=== PATIENT | female | born 1970 | race Caucasian/White ===

== ENCOUNTER → 2017-10-30 09:23 | Outpatient (CLI) | payer OTHER, SELFPAY ==
[2017-10-30 14:23] LABS: Free T3 2.5 pg/mL (2.18-3.98); T4 Free Direct 0.83 ng/dL (0.76-1.46)
[2017-11-01 15:58] LABS: HPV Reflexed? NOT INDICATED
== END ==
PROVIDERS: Visit Provider Obstetrics & Gynecology
DX: R63.5 Abnormal weight gain (principal); Z12.4 Encounter for screening for malignant neoplasm of cervix
CPT/HCPCS: 36415; 84439; 84443; 84481; 88175; G0145

== ENCOUNTER → 2017-11-10 08:52 | Outpatient (CLI) | payer OTHER, SELFPAY ==
--- NOTE | 2017-11-10 08:53 | BI_ITS ---
MAMMOGRAPHY - BILATERAL SCREENING REASON FOR EXAM: Female, 47 years old. Routine annual screening examination. PERTINENT HISTORY: Grandmother with breast cancer. TECHNIQUE: Digital bilateral breast ina (3D mammographic acquisition) in the CC and MLO projections. 2-D mediolateral oblique (MLO) and craniocaudad (CC) views of both breasts were obtained. CAD: Full Field Digital Mammography with Computer Added Detection was performed. COMPARISON: Comparison is made with prior study dated October 24, 2016 and October 19, 2015. FINDINGS: Breast Composition: The breasts are heterogeneously dense, which may obscure small masses. There are no dominant masses or suspicious calcifications. No other significant abnormalities are identified. There has been no significant change since the prior study. BI/SCREENING MAMM (CAD), BILAT IMPRESSION: Stable bilateral screening mammogram. Yearly follow-up mammogram recommended. (A) ASSESSMENT CATEGORY: BIRADS Category 1: Negative. A letter regarding these results will be sent to the patient by the facility within 30 days. Approximately 10% of breast cancers are not detected by mammography. A normal mammogram should not delay biopsy of a clinically suspicious abnormality. [id number] Electronically Signed: You Adkins MD at 13:21 EDT Tel [phone], Service support ,
== END ==
PROVIDERS: Family Provider Family Medicine; PCP Family Medicine; Visit Provider Obstetrics & Gynecology
DX: Z12.31 Encounter for screening mammogram for malignant neoplasm of breast (principal)
CPT/HCPCS: 77063; 77067

== ENCOUNTER → 2018-02-26 12:04 | Outpatient (CLI) | payer OTHER, SELFPAY | PROVIDERS: Family Provider Family Medicine; PCP Family Medicine; Visit Provider Family Medicine | DX: M72.2 Plantar fascial fibromatosis (principal) | CPT/HCPCS: 73650 ==

== ENCOUNTER → 2018-03-19 10:36 | Outpatient (CLI) | payer OTHER, SELFPAY ==
[2018-03-19 11:37] LABS: T4 Free Direct 0.87 ng/dL (0.76-1.46); Thyroid Stim Hormone (TSH) 2.86 uIU/mL (0.358-3.74)
== END ==
PROVIDERS: Family Provider Family Medicine; PCP Family Medicine; Visit Provider Family Medicine
DX: R79.89 Other specified abnormal findings of blood chemistry (principal)
CPT/HCPCS: 36415; 84439; 84443

== ENCOUNTER → 2018-03-22 17:30 | Outpatient (CLI) | payer OTHER, SELFPAY ==
--- NOTE | 2018-03-22 18:00 | MRI_ITS ---
STUDY: MRI RIGHT REARFOOT WITHOUT CONTRAST REASON FOR EXAM: Female, 47 years old. Heel pain. History of spur TECHNIQUE: Standardized fat and water weighted pulse sequences were obtained in all 3 orthogonal planes. COMPARISON: X-ray February 26, 2018 FINDINGS: Normal subcutis adipose space. There is thickening of the distal posterior tibialis tendon consistent with a tendinosis, but without a tendon tear. Normal flexor digitorum longus tendon. Normal flexor hallucis longus tendon. Normal peroneus longus and brevis tendons. Normal tibialis anterior tendon. Normal extensor hallucis longus tendon. Normal extensor digitorum longus tendons. Normal Achilles tendon and teno-osseous insertion. There is a plantar fasciitis with plantar fascial thickening, fascial edema, and partial tearing, series 3 image 06/03 through . There is a plantar calcaneal spur with cancellous marrow edema consistent with a marrow stress phenomena. There is marrow edema of the inferior calcaneus. Normal intrinsic muscles of the rearfoot. Normal distal tibiofibular syndesmotic ligamentous complex. Normal lateral ligamentous complex. Normal subtalar ligaments and sinus tarsi. Normal deltoid ligamentous complexes. Normal plantar calcaneonavicular (spring) ligament. Normal tibiotalar articulation. Normal talar dome. Normal subtalar articulations. Normal talonavicular articulation. Normal calcaneocuboid articulation. Normal navicular-cuneiform articulations. MRI/Lower Ext/No Jt/w/o IMPRESSION: Plantar fasciitis and partial tearing. Heel spur with edema and stress injury of the calcaneus. Electronically Signed: Ashish Morales MD at 10:42 EDT , Service support ,
== END ==
PROVIDERS: Family Provider Family Medicine; PCP Family Medicine; Visit Provider Family Medicine
DX: M79.671 Pain in right foot (principal)
CPT/HCPCS: 73718

== ENCOUNTER 2018-07-07 16:28 | Emergency (ER) | payer OTHER, SELFPAY ==
[2018-07-07 16:29] VITALS: BP 128/87; PULSE 73; RESP 16; TEMP 37.5; O2SAT 98; BMI 37.2
--- NOTE | 2018-07-07 16:56 | EKG12_ITS ---
Test Reason : CHEST PAIN Blood Pressure : / mmHG Vent. Rate : 076 BPM Atrial Rate : 076 BPM P-R Int : 140 ms QRS Dur : 084 ms QT Int : 388 ms P-R-T Axes : 041 059 035 degrees QTc Int : 436 ms Normal sinus rhythm Nonspecific ST abnormality Abnormal ECG Confirmed by ELIESER ROGERS, YAHAIRA ([id number]), editor department PADMA KAY ([id number]) on 07/10/2018 2:35:34 PM Referred By: SHRUTHI Confirmed By:YAHAIRA MON MD
[2018-07-07 16:59] VITALS: BP 147/80; PULSE 70; RESP 16; O2SAT 95
[2018-07-07 17:38] VITALS: BP 143/94; PULSE 64; RESP 18; O2SAT 96
--- NOTE | 2018-07-07 17:41 | ED.VISSUMM ---
- ER Visit Summary Date of Service: 07/07/18 Chief Complaint: Transient left-sided chest pain History of Present Illness: The patient is a 47 F with history of syncope with positive table tilt test who presents with left-sided chest discomfort described as sharp that lasted minutes. First episode Sunday. She had 3 or 4 episodes. There is no associated symptoms. She also reported bilateral elbow numbness there was not associated with the chest discomfort. She did not have any episodes on or Sunday. She had 3 episodes yesterday and several episodes today. No episode lasted more than a couple of minutes. All of the episodes occurred at rest. On Sunday she reported belching the belching resolved after she took [id number] Pepcid. She had belching today did that not resolve with the Pepcid. Patient is a non-smoker. She has no cardiac risk factors. She is in a walking boot. She has been in a walking shoe that she intermittently wears over the last 3 months. Denies leg pain, swelling discoloration. She denies pleuritic pain, shortness of breath dyspnea on exertion. Please read written note for complete detail Physical Examination: Vital signs noted and remarkable for blood pressure 143/94. Patient does appear anxious and admits she is anxious. HEENT exam unremarkable there is reproducible chest pain over the third fourth intercostal space on the left side. Heart is regular without murmur, gallop or rub. Lungs are clear to auscultation. There is good move air bilaterally. Abdomen soft nontender. There is no asymmetry, swelling, discoloration, leg vein distention, palpable cords or tenderness along the distribution of the deep venous system. Test Results: EKG normal sinus rhythm with a rate of 76 and is normal. There is artifact noted in first beat and V5 and 6 that I presume the computer is reading as nonspecific changes. Troponin is less than 0.015. Patient is PERC negative and reason d-dimer was not obtained Emergency Department Course and Treatment: EKG was obtained and troponin. Patient has a very atypical presentation. This probably represents GI etiology is associated with burping and initially resolved with Pepcid. Treatment Plan: Follow-up with PCP as needed Disposition: Discharged home Impression: 1. Atypical chest pain unknown cause 2. Reproducible chest wall pain left side This note was generated with [employer] software. It may contain incorrect words, spelling, and punctuation that were not noted in review of the chart prior to signing ED Disposition - Plan for ED Patient: Disposition: Home or Assisted Living Chief Complaint: Chest Pain Instructions: ED Chest Pain NonCardiac Referrals: Marcus Bolden MD [Primary Care Provider] - As Needed
[2018-07-07 17:55] VITALS: BP 142/91; PULSE 68; RESP 18; TEMP -8.3; TEMP 17; O2SAT 98
== END 2018-07-07 17:55 | disposition home or self-care (01) ==
PROVIDERS: Emergency Provider Emergency Medicine; Family Provider Family Medicine; PCP Family Medicine
DX: R07.89 Other chest pain (principal); R20.0 Anesthesia of skin; R14.2 Eructation; E66.9 Obesity, unspecified
CPT/HCPCS: 84484; 93005; 99285

== ENCOUNTER → 2018-07-18 06:52 | Outpatient (CLI) | payer OTHER, SELFPAY ==
[2018-07-07 16:29] VITALS: BMI 37.2
--- NOTE | 2018-07-18 12:52 | STRESSREP ---
Stress Test Report Date: 07/18/2018 Procedure: Exercise tolerance test/imaging study Indications: Chest pain Consent: Per the patient Procedure: The patient exercised on a Aubrey protocol for 9 minutes completing Stage III achieving a peak heart rate of 166 bpm (95 % predicted maximal heart rate) with a peak blood pressure 152/88 mmHg and a peak MET capacity of 10 METs. The baseline ECG demonstrated normal sinus rhythm. The peak exercise ECG demonstrated no obvious ECG changes. There was a rare PVC during exercise and recovery. The functional capacity was considered good. There was no complaint of chest discomfort during exercise or recovery. The examination was discontinued secondary to dyspnea. Impression: 1. Technically adequate (percent predicted maximal heart rate greater than 85%) exercise tolerance test 2. Peak exercise ECG with no obvious ECG changes 3. There was a rare PVC during exercise and recovery 4. Nuclear images pending Myocardial perfusion imaging study: Technique: The patient was injected with 11.8 mCi of technetium 99m Cardiolite and subsequently rest SPECT Cardiolite nuclear imaging was obtained in the horizontal long, vertical long, and short axis views. The patient exercised on a Aubrey protocol for 9 minutes completing Stage III achieving a peak heart rate of 166 bpm (95 % predicted maximal heart rate) with a peak blood pressure 152/88 mmHg and a peak MET capacity of 10 METs. The patient was injected with 34.1 mCi of technetium 99m Cardiolite and subsequently stress SPECT Cardiolite nuclear imaging was obtained in the horizontal long, vertical long, and short axis views. A gated Cardiolite study at peak stress was obtained. Interpretation: Rest and stress SPECT Cardiolite nuclear imaging status post realignment, normalization, and attenuation correction, demonstrates the appearance of relative uniform tracer uptake and myocardial perfusion appearing within normal limits. There is end systolic thickening and brightening. The gated Cardiolite study demonstrates myocardial thickening and inward wall motion. The reported LVEF is 62 %. Impression: 1. Rest and stress SPECT Cardiolite nuclear imaging demonstrate relative uniform tracer uptake and myocardial perfusion appearing within normal limits. 2. The gated Cardiolite study reports an LVEF of 62%. This note was generated with [employer] software. It may contain incorrect words, spelling, and punctuation that were not noted in checking the note before signing.
== END ==
PROVIDERS: Family Provider Family Medicine; PCP Family Medicine; Referring Provider Internal Medicine Cardiovascular Disease; Visit Provider Internal Medicine Cardiovascular Disease
DX: R07.9 Chest pain, unspecified (principal); I49.1 Atrial premature depolarization; I49.3 Ventricular premature depolarization
CPT/HCPCS: 78452; 93017; A9500; A4216

== ENCOUNTER → 2018-12-26 | Outpatient (CLI) | payer OTHER, SELFPAY ==
--- NOTE | 2018-12-26 12:15 | BI_ITS ---
MAMMOGRAPHY - BILATERAL SCREENING REASON FOR EXAM: Female, 48 years old. Routine annual screening examination. PERTINENT HISTORY: Grandmother with breast cancer. TECHNIQUE: Digital bilateral breast rocael (3D mammographic acquisition) in the CC and MLO projections. 2-D mediolateral oblique (MLO) and craniocaudad (CC) views of both breasts were obtained. CAD: Full Field Digital Mammography with Computer Added Detection was performed. COMPARISON: Comparison is made with prior study of November 10, 2017 and October 24, 2016. FINDINGS: Breast Composition: The breasts are heterogeneously dense, which may obscure small masses. There are no dominant masses or suspicious calcifications. No other significant abnormalities are identified. There has been no significant change since the prior study. BI/SCREEN MAMM (CAD) W/ROCAEL BILAT IMPRESSION: Stable bilateral screening mammogram. Yearly follow-up mammogram recommended. (A) ASSESSMENT CATEGORY: BIRADS Category 1: Negative. A letter regarding these results will be sent to the patient by the facility within 30 days. Approximately 10% of breast cancers are not detected by mammography. A normal mammogram should not delay biopsy of a clinically suspicious abnormality. [id number] Electronically Signed: You Adkins, at 14:04 EDT , Service support ,
== END | disposition home or self-care (01) ==
LOC: OPBI 12:13
PROVIDERS: Family Provider Family Medicine; PCP Family Medicine; Referring Provider Obstetrics & Gynecology; Visit Provider Obstetrics & Gynecology
DX: Z12.31 Encounter for screening mammogram for malignant neoplasm of breast (principal)
CPT/HCPCS: 77063; 77067

== ENCOUNTER → 2020-01-05 13:43 | Outpatient (CLI) | payer OTHER, SELFPAY ==
[2019-11-27 14:08] VITALS: BMI 33.0
--- NOTE | 2020-01-05 13:46 | BI_ITS ---
MAMMOGRAPHY - BILATERAL SCREENING REASON FOR EXAM: Female, 49 years old. Routine annual screening examination. PERTINENT HISTORY: Grandmother with breast cancer. TECHNIQUE: Digital bilateral breast rocael (3D mammographic acquisition) in the CC and MLO projections. 2-D mediolateral oblique (MLO) and craniocaudad (CC) views of both breasts were obtained. CAD: Full Field Digital Mammography with Computer Added Detection was performed. COMPARISON: Comparison is made with prior examination dated December 26, 2018 and November 10, 2017. FINDINGS: Breast Composition: The breasts are heterogeneously dense, which may obscure small masses. There are no dominant masses or suspicious calcifications. No other significant abnormalities are identified. There has been no significant change since the prior study. BI/SCREEN MAMM (CAD) W/ROCAEL BILAT IMPRESSION: Stable bilateral screening mammogram. Yearly follow-up mammogram recommended. (A) ASSESSMENT CATEGORY: BIRADS Category 2: Benign. A letter regarding these results will be sent to the patient by the facility within 30 days. Approximately 10% of breast cancers are not detected by mammography. A normal mammogram should not delay biopsy of a clinically suspicious abnormality. [id number] Electronically Signed: You Adkins, at 15:10 EDT , Service support ,
== END ==
PROVIDERS: PCP Family Medicine; Referring Provider Obstetrics & Gynecology; Visit Provider Obstetrics & Gynecology
DX: Z12.31 Encounter for screening mammogram for malignant neoplasm of breast (principal)
CPT/HCPCS: 77063; 77067

== ENCOUNTER → 2020-03-11 | Outpatient (CLI) | payer OTHER, SELFPAY ==
[2019-11-27 14:08] VITALS: BMI 33.0
--- NOTE | 2020-03-11 09:45 | LES_PTH ---
PATIENT: JANICE SO LOC: [facility] U#:[id number] AGE/SX: 49/F ROOM: RE03/11/[address]: Dr. Kyle Bolden MD : 1970 BED: DIS: 03/11/2020 SPEC #: [id number] RECD: 03/11/20 12:12 STATUS: MALGORZATA CANDACE #: [id number] ROB: 03/11/20 09:[address]: Kyle Bolden DEPT: SURGICAL PATHOLOGY RECD BY: Shruthi Koroma Tissues: Skin of leg, NOS Procedures: Surgery Specimen Level IV HEADER OPERATION: Shave biopsy right leg lesion PRE-OP DIAGNOSIS: ? BCC leg TISSUE SUBMITTED: Right leg suspicious skin lesion MICROSCOPIC DIAGNOSIS Right leg skin lesion, shave biopsy: Benign verrucous keratosis. Negative for carcinoma. SJ:ilene 03/12/20 COMMENT Clinical correlation and appropriate follow up are necessary. Case has been reviewed in consultation with Dr. Almanza who concurs with the above diagnosis. IDC:AM MICROSCOPIC DESCRIPTION Slides are reviewed. GROSS DESCRIPTION Received in fixative is one container labeled with the patient's name and designated right leg. The specimen consists of a shave biopsy of rolon-white skin measuring 1 x 0.9 x 0.1 cm. The specimen is inked and submitted entirely in one cassette. It will be sectioned at the time of embedding. / RENETTA:ilene 03/11/20 TC:5 CPT: 84334
== END | disposition home or self-care (01) ==
LOC: LABSPEC 13:03
PROVIDERS: PCP Family Medicine; Referring Provider Family Medicine; Visit Provider Family Medicine
DX: L82.1 Other seborrheic keratosis (principal)
CPT/HCPCS: 88305

== ENCOUNTER → 2020-12-16 | Outpatient (CLI) | payer OTHER, SELFPAY ==
[2020-05-06 08:33] VITALS: BMI 31.6
[2020-12-21 13:28] LABS: HPV APTIMA, High Risk Negative (Negative); HPV Reflexed? YES, CHARGE PATIENT
== END | disposition home or self-care (01) ==
LOC: LABSPEC 16:40
PROVIDERS: PCP Family Medicine; Visit Provider Obstetrics & Gynecology
DX: Z12.4 Encounter for screening for malignant neoplasm of cervix (principal)
CPT/HCPCS: 87624; 88175; G0145

== ENCOUNTER → 2021-01-05 14:14 | Outpatient (CLI) | payer OTHER, SELFPAY ==
[2020-05-06 08:33] VITALS: BMI 31.6
--- NOTE | 2021-01-05 14:17 | BI_ITS ---
MAMMOGRAPHY - BILATERAL SCREENING REASON FOR EXAM: Female, 50 years old. Routine annual screening examination. PERTINENT HISTORY: Grandmother with breast cancer. TECHNIQUE: Digital bilateral breast rocael (3D mammographic acquisition) in the CC and MLO projections. 2-D mediolateral oblique (MLO) and craniocaudad (CC) views of both breasts were obtained. CAD: Full Field Digital Mammography with Computer Added Detection was performed. COMPARISON: Comparison is made with prior study dated 01/05/2020 and 12/26/2018. FINDINGS: Breast Composition: The breasts are heterogeneously dense, which may obscure small masses. There are no dominant masses or suspicious calcifications. There is a 1.1 cm x 1.1 cm nodular density in the upper outer quadrant of the right breast. Correlation with ultrasound is recommended. No other significant abnormalities are identified. BI/SCRN MAMM (CAD)W/ROCAEL BILAT IMPRESSION: 1.1 cm x 1.1 THOMAS nodular density in the upper outer quadrant of the right breast. Correlation with ultrasound is recommended. ASSESSMENT CATEGORY: BIRADS Category 0: Incomplete. Need additional imaging evaluation. A letter regarding these results will be sent to the patient by the facility within 30 days. Approximately 10% of breast cancers are not detected by mammography. A normal mammogram should not delay biopsy of a clinically suspicious abnormality. [id number] Electronically Signed: You Adkins MD at 15:41 EDT , Service support ,
== END ==
PROVIDERS: PCP Family Medicine; Referring Provider Obstetrics & Gynecology; Visit Provider Obstetrics & Gynecology
DX: Z12.31 Encounter for screening mammogram for malignant neoplasm of breast (principal)
CPT/HCPCS: 77063; 77067

== ENCOUNTER → 2021-01-06 12:43 | Outpatient (CLI) | payer OTHER, SELFPAY ==
[2020-05-06 08:33] VITALS: BMI 31.6
--- NOTE | 2021-01-06 12:45 | US_ITS ---
STUDY: ULTRASOUND BREAST - RIGHT REASON FOR EXAM: Female, 50 years old. Abnormal screening mammogram. TECHNIQUE: Axial and longitudinal images of the RIGHT breast were performed with a high resolution ultrasound transducer. # OF IMAGES: 30 COMPARISON: Comparison is made with prior mammogram dated 01/05/2021. FINDINGS: RIGHT Breast: The mammographic abnormality corresponds to an 8 mm x 9 mm x 5 mm septated cyst versus dilated ducts at the 9 o''clock position of the breast at 3 cm from nipple. Incidental note is made of a 6 mm x 4 mm x 3 mm benign-appearing right axillary lymph node. US/Breast Limited Unilateral IMPRESSION: The mammographic and amount) an 8 mm x 9 mm x 5 mm septated cyst versus dilated ducts at the 9 o''clock position breast at 3 cm from nipple. A four-month follow-up sonogram is suggested. ASSESSMENT CATEGORY: BIRADS Category 3: Probably Benign - Short-Interval Follow-up Suggested. A letter regarding these results will be sent to the patient by the facility within 30 days. Electronically Signed: You Adkins MD at 15:10 EDT , Service support ,
== END ==
PROVIDERS: PCP Family Medicine; Referring Provider Obstetrics & Gynecology; Visit Provider Obstetrics & Gynecology
DX: R92.2 Inconclusive mammogram (principal)
CPT/HCPCS: 76642

== ENCOUNTER 2021-01-07 05:27 | Day surgery (SDC) | payer OTHER, SELFPAY ==
[2020-05-06 08:33] VITALS: BMI 31.6
[2021-01-07] VITALS (7 sets, daily range): BP systolic 115–149; BP diastolic 70–80; PULSE 63–71; RESP 16–106; TEMP 36.4–36.7; O2SAT 97–100; BMI 34.2
[2021-01-07] MEDS: Lactated Ringers 1,000 ML 100 ML IV (05:45)
--- NOTE | 2021-01-07 06:21 | HP.PCM_ITS ---
HPI - General HPI Narrative JANICE SO, is a 50 F who presents for screening colonoscopy today. She is asymptomatic. No change in bowel habits. No bright red blood per rectum or melena. No family history of colon cancer. She has not had a previous colonoscopy. She otherwise enjoys good health. No COVID-19. She has been vacc inated. [facility] Medical History (Updated 01/07/21 @ 06:[address] Peyman Campos MD) Anxiety Back pain Cardiology follow-up encounter Heartburn Hemorrhoids History of edema History of hemorrhoids History of irregular heartbeat History of stress test Loss of consciousness Non-smoker Nonrheumatic mitral (valve) prolapse Premature atrial contractions Premature ventricular contraction Syncope Syncope, vasovagal Wears glasses Home Medications cetirizine [Zyrtec] 10 mg PO DAILY PRN 01/05/21 [History Last Taken Unknown] fluticasone propionate [Flonase Allergy Relief] 1 spray INTRANASAL DAILY PRN 01/05/21 [History Last Taken Unknown] Allergy/AdvReac Type Severity Reaction Status Date / Time tramadol [From Ultracet] Allergy Severe felt as if Verified 01/07/21 06:05 she was going to pass out Family History Mother Hypertension Diabetes Brother Diabetes Surgical History H/O section History of lymph node biopsy Social History (Updated 05/06/20 @ 09:51 by Georgi PARISH, МАРИНА) Smoking Status: Never smoker alcohol intake: never ROS Constitutional Constitutional: Reports systems reviewed and no addt'l complaints, except as documented Cardiovascular Cardiovascular: Denies chest pain Respiratory/Chest Respiratory/Chest: Denies shortness of breath at rest Gastrointestinal Gastrointestinal: Denies abdominal pain, change in bowel habits, hematochezia or melena Vital Signs Vital Signs Vital Signs: 01/07/21 06:05 Temperature 98.0 F Temperature Source Temporal Pulse Rate 68 Respiratory Rate 16 Respiratory Pattern Normal Blood Pressure 149/79 H Blood Pressure Mean 102 Blood Pressure Source Monitor Blood Pressure Position Semi-Fowlers Blood Pressure Location Right Arm Pulse Ox 97 Oxygen Delivery Method Room Air Weight Weight: 199 lb 4.766 oz Body Mass Index (BMI) 34.2 Physical Exam Const alert, oriented x3 and no apparent distress General Appearance: cooperative and comfortable Eyes General Eye: normal appearance of both eyes Neck General: normal visual inspection Chest inspection of chest normal Resp Effort and Inspection: able to speak in complete sentences and symmetric chest movement Auscultation: clear to auscultation bilaterally Cardio regular rate and regular rhythm GI soft to palpation, non-tender and non-distended Extremity no calf tenderness Neuro oriented x3 Psych thought process normal Assessment & Plan Assessment/Plan (1) Screening for intestinal cancer: PLAN: I recommended the patient a screening colonoscopy with possible biopsy or polypectomy as indicated. She is aware of the technique, benefit, risk and alternatives. She presents via open access today. We will proceed with monitored anesthesia care. Peyman Campos M.D., F.A.C.S.
[2021-01-07 06:23] LABS: Internal QC Validated? YES +Cl - CLEAR BKGD; Pregnancy, Urine Negative Negative
--- NOTE | 2021-01-07 06:30 | COLBX_PTH ---
PATIENT: JANICE SO LOC: EN U#:[id number] AGE/SX: 50/F ROOM: RE01/07/[address]: Dr. Peyman Campos MD : 1970 BED: DIS: 01/07/2021 SPEC #: [id number] RECD: 01/07/21 13:07 STATUS: MALGORZATA MARIA #: [id number] ROB: 01/07/21 06:[address]: Peyman Campos DEPT: SURGICAL PATHOLOGY RECD BY: Ursula Zavala ENTERED: 01/07/21 13:28 SP TYPE: COLON BX OTHR DR: Dr. Kyle Bolden MD Tissues: A - Hepatic capsule, NOS B - Splenic capsule C - Sigmoid colon biopsy Procedures: Surgery Specimen Level IV HEADER OPERATION: Colonoscopy, open access (MAC) PRE-OP DIAGNOSIS: Screening TISSUE SUBMITTED: A ? Hepatic flexure polyp biopsy, C ? Splenic flexure polyp biopsy, C ? Proximal sigmoid polyp MICROSCOPIC DIAGNOSIS A. Colonic polyp at hepatic flexure, biopsy: Fragments of hyperplastic polyp. B. Colonic polyp at splenic flexure, biopsy: Hyperplastic polyp. C. Proximal sigmoid colon polyp, biopsy: Tubular adenoma. AM:ilene 01/11/2021 MICROSCOPIC DESCRIPTION Slides are reviewed. GROSS DESCRIPTION A - Received in fixative is one container labeled with the patient's name and designated hepatic flexure biopsy. The specimen consists of multiple irregular fragments of light rolon soft tissue that in aggregate measure 0.7 x 0.3 x 0.1 cm. The specimen is totally submitted in one cassette. B - Received in fixative is one container labeled with the patient's name and designated splenic flexure polyp biopsy. The specimen consists of multiple irregular fragments of light rolon soft tissue that in aggregate measure 1 x 0.3 x 0.1 cm. The specimen is totally submitted in one cassette. C - Received in fixative is one container labeled with the patient's name and designated proximal sigmoid polyp. The specimen consists of a rolon-pink polyp measuring 0.7 x 0.5 x 0.3 cm. The entire specimen is submitted in one cassette. / RENETTA:ilene 01/07/21 TC:5 CPT: 82254 x3
--- NOTE | 2021-01-07 06:59 | OP.CCLET_ITS ---
01/07/2021 Marcus Bolden [address] [place] [address] Re : Colonoscopy procedure for Chantell Natalie Dear Dr. Bolden This procedure was performed on Thursday, January 07, 2021. My impressions and recommendations are as follows: Impressions : - Non-thrombosed internal hemorrhoids and internal hemorrhoids that prolapse with straining, but spontaneously regress to the resting position (Grade II) found on digital rectal exam. - One 5 mm polyp at the hepatic flexure, removed with a cold biopsy forceps. Resected and retrieved. - One 4 mm polyp at the splenic flexure, removed with a cold biopsy forceps. Resected and retrieved. - One 8 mm polyp in the proximal sigmoid colon, removed with a hot snare. Resected and retrieved. - The examination was otherwise normal. Recommendations : - Discharge patient to home. - Resume previous diet. - Continue present medications. - Repeat colonoscopy in 5 years for surveillance based on pathology results. - Telephone my office for pathology results in 1 week. My findings are described in the full procedure note, which is enclosed. If I can be of further assistance, please feel free to contact me at Doctor phone number(s): Work: . Sincerely, Peyman Campos MD 01/07/2021 6:58:51 AM This report has been signed electronically.
--- NOTE | 2021-01-07 06:59 | OP.COLON_ITS ---
Patient Name: Chantell Estrada Procedure Date: 01/07/2021 6:14 AM Date of : 1970 Age: 50 Procedure: Colonoscopy Indications: Screening for colorectal malignant neoplasm Providers: Peyman Campos MD Referring MD: Marcus Bolden Medicines: See the Anesthesia note for documentation of the administered medications Patient Profile: Last Colonoscopy: none. The patient's first colonoscopy is today. Complications: No immediate complications. Procedure: Pre-Anesthesia Assessment: - Prior to the procedure, a History and Physical was performed, and patient medications and allergies were reviewed. The patient's tolerance of previous anesthesia was also reviewed. The risks and benefits of the procedure and the sedation options and risks were discussed with the patient. All questions were answered, and informed consent was obtained. Prior Anticoagulants: The patient has taken no previous anticoagulant or antiplatelet agents. ASA Grade Assessment: I - A normal, healthy patient. After reviewing the risks and benefits, the patient was deemed in satisfactory condition to undergo the procedure. After I obtained informed consent, the scope was passed under direct vision. Throughout the procedure, the patient's blood pressure, pulse, and oxygen saturations were monitored continuously. The colonoscope was introduced through the anus and advanced to the cecum, identified by appendiceal orifice and ileocecal valve. The colonoscopy was performed without difficulty. The patient tolerated the procedure well. The quality of the bowel preparation was excellent. The ileocecal valve and the appendiceal orifice were photographed. Scope In: 6:34:25 AM Scope Withdrawal Time 0 hours 13 minutes 57 seconds Scope Out: 6:53:50 AM Total Procedure Duration Time 0 hours 19 minutes 25 seconds Findings: The digital rectal exam findings include non-thrombosed internal hemorrhoids and internal hemorrhoids that prolapse with straining, but spontaneously regress to the resting position (Grade II). A 5 mm polyp was found in the hepatic flexure. The polyp was sessile. The polyp was removed with a cold biopsy forceps. Resection and retrieval were complete. A 4 mm polyp was found in the splenic flexure. The polyp was sessile. The polyp was removed with a cold biopsy forceps. Resection and retrieval were complete. A 8 mm polyp was found in the proximal sigmoid colon. The polyp was sessile. The polyp was removed with a hot snare. Resection and retrieval were complete. The exam was otherwise without abnormality. Impression: - Non-thrombosed internal hemorrhoids and internal hemorrhoids that prolapse with straining, but spontaneously regress to the resting position (Grade II) found on digital rectal exam. - One 5 mm polyp at the hepatic flexure, removed with a cold biopsy forceps. Resected and retrieved. - One 4 mm polyp at the splenic flexure, removed with a cold biopsy forceps. Resected and retrieved. - One 8 mm polyp in the proximal sigmoid colon, removed with a hot snare. Resected and retrieved. - The examination was otherwise normal. Recommendation: - Discharge patient to home. - Resume previous diet. - Continue present medications. - Repeat colonoscopy in 5 years for surveillance based on pathology results. - Telephone my office for pathology results in 1 week. Procedure Code(s): --- Professional --- 90904, Colonoscopy, flexible; with removal of tumor(s), polyp(s), or other lesion(s) by snare technique [id number], 59, Colonoscopy, flexible; with biopsy, single or multiple Diagnosis Code(s): --- Professional --- Z12.11, Encounter for screening for malignant neoplasm of colon K64.1, Second degree hemorrhoids D12.3, Benign neoplasm of transverse colon (hepatic flexure or splenic flexure) D12.5, Benign neoplasm of sigmoid colon CPT copyright 2017 [employer] [place] [employer]. All rights reserved. The codes documented in this report are preliminary and upon master deputy sheriff court security review may be revised to meet current compliance requirements. Peyman Campos MD 01/07/2021 6:58:51 AM This report has been signed electronically. Number of Addenda: 0 Note Initiated On: 01/07/2021 6:14 AM
== END 2021-01-07 07:42 ==
LOC: EN 05:29 → AC 05:29
PROVIDERS: Anesthesiology; PCP Family Medicine; Referring Provider Family Medicine; Visit Provider Surgery
PROC: 0DJD8ZZ Inspection of Lower Intestinal Tract, Via Natural or Artificial Opening Endoscopic (ICD-10-PCS; CPT 45378; principal; 2021-01-07 06:25)
DX: Z12.11 Encounter for screening for malignant neoplasm of colon (principal); D12.5 Benign neoplasm of sigmoid colon; K63.5 Polyp of colon; K64.1 Second degree hemorrhoids
CPT/HCPCS: 45380; 45385; 81025; 88305; J7120; J2405

== ENCOUNTER → 2021-04-13 15:04 | Outpatient (CLI) | payer OTHER, SELFPAY ==
[2021-01-07 06:05] VITALS: BMI 34.2
--- NOTE | 2021-04-13 15:08 | US_ITS ---
STUDY: ULTRASOUND BREAST - RIGHT REASON FOR EXAM: Female, 50 years old. Short interval follow-up TECHNIQUE: Axial and longitudinal images of the RIGHT breast were performed with a high resolution ultrasound transducer. # OF IMAGES: 46 COMPARISON: 01/06/2021 FINDINGS: RIGHT Breast: Heterogeneous background echotexture. At 9 o''clock, 3 cm from the nipple, there is minimal marked interval decrease in the size of the septated cyst from 9 mm in diameter to a single loculated cyst measuring 5 mm in diameter: US/Breast Limited Unilateral IMPRESSION: Improved cyst in the lateral right breast. Routine screening mammogram is recommended one year from the day the last remaining mammogram. ASSESSMENT CATEGORY: BIRADS Category 2: Benign. A letter regarding these results will be sent to the patient by the facility within 30 days. Electronically Signed: Markie Hunt MD at 10:17 EDT Tel , Service support ,
== END ==
PROVIDERS: PCP Family Medicine; Referring Provider Obstetrics & Gynecology; Visit Provider Obstetrics & Gynecology
DX: N60.01 Solitary cyst of right breast (principal)
CPT/HCPCS: 76642

== ENCOUNTER → 2022-04-17 | Outpatient (CLI) | payer OTHER, SELFPAY ==
--- NOTE | 2022-04-17 08:42 | BI_ITS ---
MAMMOGRAPHY - BILATERAL SCREENING REASON FOR EXAM: Female, 51 years old. Routine annual screening examination. PERTINENT HISTORY: Grandmother with breast cancer. TECHNIQUE: Digital bilateral breast rocael (3D mammographic acquisition) in the CC and MLO projections. 2-D mediolateral oblique (MLO) and craniocaudad (CC) views of both breasts were obtained. CAD: Full Field Digital Mammography with Computer Added Detection was performed. COMPARISON: Comparison is made with prior examination dated 01/05/2021 and 01/05/2020. FINDINGS: Breast Composition: The breasts are heterogeneously dense, which may obscure small masses. There are no dominant masses or suspicious calcifications. Stable 1.1 cm x 1.1 cm nodular density in the upper outer quadrant of the right breast. Correlation with ultrasound is recommended to assess stability. No other significant abnormalities are identified. BI/SCRN MAMM (CAD)W/ROCAEL BILAT IMPRESSION: Stable bilateral screening mammogram. Correlation with ultrasound of the right breast in the upper outer quadrant is recommended for further evaluation. ASSESSMENT CATEGORY: BIRADS Category 0: Incomplete. Need additional imaging evaluation. A letter regarding these results will be sent to the patient by the facility within 30 days. Approximately 10% of breast cancers are not detected by mammography. A normal mammogram should not delay biopsy of a clinically suspicious abnormality. [id number] Electronically Signed: You Adkins MD at 10:09 EDT ,
== END | disposition home or self-care (01) ==
LOC: OPBI 08:37
PROVIDERS: PCP Family Medicine; Visit Provider Obstetrics & Gynecology
DX: Z12.31 Encounter for screening mammogram for malignant neoplasm of breast (principal); Z80.3 Family history of malignant neoplasm of breast
CPT/HCPCS: 77063; 77067

== ENCOUNTER → 2022-04-24 | Outpatient (CLI) | payer OTHER, SELFPAY ==
--- NOTE | 2022-04-24 15:23 | US_ITS ---
STUDY: ULTRASOUND BREAST - RIGHT REASON FOR EXAM: Female, 51 years old. Abnormal screening mammogram. TECHNIQUE: Axial and longitudinal images of the RIGHT breast were performed with a high resolution ultrasound transducer. # OF IMAGES: 29 COMPARISON: Comparison is made with prior mammogram dated 04/17/2022 and prior sonogram of the right breast dated 04/13/2021. FINDINGS: RIGHT Breast: The mammographic abnormality corresponds to an 8 mm x 5 mm x 3 mm septated cyst at the 9 o''clock position of the breast at 4 cm from the nipple. . US/Breast Limited Unilateral IMPRESSION: A millimeter by 5 mm x 3 mm septated cyst at the 9 o''clock position of the breast at 4 cm from nipple. There is been no change. ASSESSMENT CATEGORY: BIRADS Category 2: Benign. A letter regarding these results will be sent to the patient by the facility within 30 days. Electronically Signed: You Adkins MD at 10:08 EDT ,
== END | disposition home or self-care (01) ==
LOC: OPUS 15:19
PROVIDERS: PCP Family Medicine; Visit Provider Obstetrics & Gynecology
DX: R92.8 Other abnormal and inconclusive findings on diagnostic imaging of breast (principal)
CPT/HCPCS: 76642

== ENCOUNTER → 2022-12-19 | Outpatient (CLI) | payer OTHER, SELFPAY ==
--- NOTE | 2022-12-19 10:29 | RAD_ITS ---
STUDY: X-RAY CHEST REASON FOR EXAM: Female, 52 years old. Elevated hemoglobin. TECHNIQUE: PA and lateral views of the chest. COMPARISON: None. FINDINGS: The lungs are clear and expanded. There is no demonstrated pleural abnormality. Normal size heart. Normal mediastinum and cayetano. Normal visualized pulmonary arteries. Normal visualized aortic arch and descending thoracic aorta. Normal visualized thoracic spine. Normal visualized ribs, clavicles, and shoulders. There is no demonstrated abnormality of the visualized soft tissue structures of the upper abdomen. RAD/Chest PA and Lateral IMPRESSION: Normal x-ray examination of the chest. Electronically Signed: Elias De Jesus DO at 23:19 EDT ,
[2022-12-19 12:44] LABS: Hemoglobin A1c 5.6 % (3.8-5.6)
[2022-12-24 12:07] LABS: Erythropoietin 10.7 mIU/mL (2.6-18.5)
== END | disposition home or self-care (01) ==
LOC: MTLAB 10:26
PROVIDERS: PCP Family Medicine; Referring Provider Family Medicine; Visit Provider Family Medicine
DX: D58.2 Other hemoglobinopathies (principal); R73.09 Other abnormal glucose
CPT/HCPCS: 36415; 71046; 81270; 82668; 83036

== ENCOUNTER → 2023-04-27 | Outpatient (CLI) | payer OTHER, SELFPAY ==
--- NOTE | 2023-04-27 15:26 | BI_ITS ---
MAMMOGRAPHY - BILATERAL SCREENING REASON FOR EXAM: Female, 52 years old. Routine annual screening examination. PERTINENT HISTORY: Grandmother with breast cancer. History of prior right breast cyst. TECHNIQUE: Digital bilateral breast rocael (3D mammographic acquisition) in the CC and MLO projections. 2-D mediolateral oblique (MLO) and craniocaudad (CC) views of both breasts were obtained. CAD: Full Field Digital Mammography with Computer Added Detection was performed. COMPARISON: Comparison is made with prior study February 15, 2022 and January 05, 2021. FINDINGS: Breast Composition: The breasts are heterogeneously dense, which may obscure small masses. There are no dominant masses or suspicious calcifications. Stable asymmetry of breast tissue with more breast tissue is seen in the right breast as compared to the left side. Stable 1 cm x 1.1 cm well-defined nodule in the upper-outer quadrant of the right breast. This was demonstrated to be a cyst on prior sonogram. No other significant abnormalities are identified. There has been no significant change since the prior study. BI/SCRN MAMM (CAD)W/ROCAEL BILAT IMPRESSION: Stable bilateral screening mammogram. Yearly follow-up mammogram recommended. (A) ASSESSMENT CATEGORY: BIRADS Category 2: Benign. A letter regarding these results will be sent to the patient by the facility within 30 days. Approximately 10% of breast cancers are not detected by mammography. A normal mammogram should not delay biopsy of a clinically suspicious abnormality. [id number] Electronically Signed: You Adkins MD at 9:05 EDT ,
== END | disposition home or self-care (01) ==
LOC: OPBI 15:25
PROVIDERS: PCP Family Medicine; Referring Provider Family Medicine; Visit Provider Family Medicine
DX: Z12.31 Encounter for screening mammogram for malignant neoplasm of breast (principal); Z80.3 Family history of malignant neoplasm of breast
CPT/HCPCS: 77063; 77067

== ENCOUNTER → 2024-04-01 | Outpatient (CLI) | payer OTHER, SELFPAY ==
[2024-04-01 13:35] LABS: Vitamin D,25 Hydroxy 23.8 ng/mL
[2024-04-01 13:53] LABS: T4 Free Direct 0.72 ng/dL (0.76-1.46)
[2024-04-03 08:13] LABS: Thyroid Peroxidase AB 120 IU/mL (0-34)
== END | disposition home or self-care (01) ==
LOC: LAB 12:01
PROVIDERS: PCP Family Medicine; Referring Provider Nurse Practitioner Women's Health; Visit Provider Nurse Practitioner Women's Health
DX: Z13.21 Encounter for screening for nutritional disorder (principal); R23.2 Flushing; Z13.29 Encounter for screening for other suspected endocrine disorder
CPT/HCPCS: 36415; 82306; 84439; 84443; 86376

== ENCOUNTER → 2024-04-29 | Outpatient (CLI) | payer OTHER, SELFPAY ==
--- NOTE | 2024-04-29 15:27 | BI_ITS ---
MAMMOGRAPHY - BILATERAL SCREENING REASON FOR EXAM: Female, 53 years old. Routine annual screening examination. PERTINENT HISTORY: Grandmother with breast cancer. History of right breast cyst. TECHNIQUE: Digital bilateral breast rocael (3D mammographic acquisition) in the CC and MLO projections. 2-D mediolateral oblique (MLO) and craniocaudad (CC) views of both breasts were obtained. CAD: Full Field Digital Mammography with Computer Added Detection was performed. COMPARISON: Comparison is made with prior study dated April 27, 2023 and April 17, 2022. FINDINGS: Breast Composition: The breasts are heterogeneously dense, which may obscure small masses. Stable 1 cm x 1.1 cm well-defined nodule in the upper outer quadrant of the right breast. This was demonstrated to be a cyst on prior sonogram. No other significant abnormalities are identified. There has been no significant change since the prior study. BI/SCRN MAMM (CAD)W/ROCAEL BILAT IMPRESSION: Stable bilateral screening mammogram. Yearly follow-up mammogram recommended. (A) ASSESSMENT CATEGORY: BIRADS Category 2: Benign. A letter regarding these results will be sent to the patient by the facility within 30 days. Approximately 10% of breast cancers are not detected by mammography. A normal mammogram should not delay biopsy of a clinically suspicious abnormality. [id number] Electronically Signed: You Adkins MD at 10:09 EDT ,
== END | disposition home or self-care (01) ==
LOC: OPBI 15:27
PROVIDERS: PCP Family Medicine; Referring Provider Nurse Practitioner Women's Health; Visit Provider Nurse Practitioner Women's Health
DX: Z12.31 Encounter for screening mammogram for malignant neoplasm of breast (principal)
CPT/HCPCS: 77063; 77067

== ENCOUNTER → 2024-05-20 | Outpatient (CLI) | payer OTHER, SELFPAY ==
[2024-05-20 07:39] LABS: T4 Free Direct 1.48 ng/dL (0.76-1.46); Thyroid Stim Hormone (TSH) 0.086 uIU/mL (0.358-3.740)
== END | disposition home or self-care (01) ==
LOC: LAB 06:05
PROVIDERS: PCP Family Medicine; Referring Provider Family Medicine; Visit Provider Family Medicine
DX: E03.9 Hypothyroidism, unspecified (principal)
CPT/HCPCS: 36415; 84439; 84443; 84481

== ENCOUNTER → 2024-07-01 | Outpatient (CLI) | payer OTHER, SELFPAY ==
[2024-07-01 07:00] LABS: T4 Free Direct 1.09 ng/dL (0.76-1.46); Thyroid Stim Hormone (TSH) 0.449 uIU/mL (0.358-3.740)
== END | disposition home or self-care (01) ==
LOC: LAB 06:01
PROVIDERS: PCP Family Medicine; Referring Provider Family Medicine; Visit Provider Family Medicine
DX: E03.9 Hypothyroidism, unspecified (principal)
CPT/HCPCS: 36415; 84439; 84443

== ENCOUNTER → 2024-09-22 | Outpatient (CLI) | payer OTHER, SELFPAY ==
[2024-09-22 13:29] LABS: Thyroid Stim Hormone (TSH) 0.017 uIU/mL (0.300-4.200)
== END | disposition home or self-care (01) ==
LOC: LAB 06:03
PROVIDERS: PCP Family Medicine; Referring Provider Family Medicine; Visit Provider Family Medicine
DX: E03.9 Hypothyroidism, unspecified (principal)
CPT/HCPCS: 36415; 84439; 84443

== ENCOUNTER → 2024-11-24 | Outpatient (CLI) | payer OTHER, SELFPAY ==
[2024-11-24 07:24] LABS: Thyroid Stim Hormone (TSH) 0.006 uIU/mL (0.300-4.200)
[2024-11-25 08:08] LABS: Thyroid Peroxidase AB 118 IU/mL (0-34)
== END | disposition home or self-care (01) ==
PROVIDERS: PCP Family Medicine; Referring Provider Family Medicine; Visit Provider Family Medicine
DX: E03.9 Hypothyroidism, unspecified (principal)
CPT/HCPCS: 36415; 84439; 84443; 86376

== ENCOUNTER → 2025-01-20 | Outpatient (CLI) | payer OTHER, SELFPAY ==
--- OUTSIDE RECORDS SUMMARY | 2025-01-20 06:07 | XMS RPT_ITS | CCD ---
Author Organization [facility] Care Team Providers Care Edge Gluer Name Role Phone Dirk Merino Unavailable Unavailable Dirk Merino Unavailable Unavailable Dr. Marcus Bolden Primary Care Provider Dr. Marcus Bolden Referring Provider МАРИНА Raymond Attending Provider [phone] Dr. Scottie Melgar Attending Provider Dr. Kyle Bolden MD Primary Care Provider Dr. Kyle Bolden MD Attending Provider Dr. Kyle Bolden MD Referring Provider [phone] Kyle Bolden Attending Unavailable Kyle Bolden Referring Unavailable Kyle Bolden Primary Care Unavailable Kyle Bolden Attending Unavailable Kyle Bolden Referring Unavailable Kyle Bolden Primary Care Unavailable Kyle Bolden Referring Unavailable [place] TINSMITH APPRENTICE, Whit Attending Unavailable Kyle Bolden Primary Care Unavailable [place] TINSMITH APPRENTICE, Whit Attending Unavailable [place] TINSMITH APPRENTICE Whit Referring Unavailable Kyle Bolden Primary Care Unavailable [place] TINSMITH APPRENTICE, Whit Attending Unavailable [place] TINSMITH APPRENTICE Whit Referring Unavailable Kyle Bolden Primary Care Unavailable Kyle Bolden Primary Care Unavailable Assessment, Health Risk Attending Unavaila ble Assessment, Health Risk Referring Unavaila ble Kyle Bolden Referring Unavailable Kyle Bolden Primary Care Unavailable Kyle Bolden Attending Unavailable Kyle Bolden Referring Unavailable Kyle Bolden Primary Care Unavailable Kyle Bolden Attending Unavailable Allergies Allergy Classification Reported Allergen(s) Allergy Type Date of Onset Reaction(s) Facility (2 sources) acetaminophen / traMADol drug allergy 4 [facility] Work Phone: (4 sources) erythromycin drug allergy 4 [facility] Work Phone: (5 sources) traMADol Drug Allergy 2 felt as if she was going to pass out [facility] (1 source) traMADol Drug Allergy 4 [facility] Repository Medications Current Medications Medication Drug Class(es) Dates Sig (Normalized) Sig (Original) amoxicillin 875 mg / clavulanate 125 mg oral tablet (1 source) Penicillin-class Antibacterial Start: 06-16-2024 Amoxicillin-Pot Clavulanate 875-125 mg tablet Active 1 {tbl} PO Q12H June 16, 2024 1:00am cetirizine hydrochloride 10 mg oral capsule (5 sources) Histamine-1 Receptor Antagonist Start: 01-05-2021 take 1 capsule by mouth once daily as needed Cetirizine (Zyrtec) 10 mg Capsule Active 10 mg PO DAILY as needed for ALLERGIES January 05, 2021 12:00am cholecalciferol 0.025 mg oral capsule (10 sources) Vitamin D Start: 03-17-2021 take 1 capsule by mouth once daily Cholecalciferol (Vitamin D3) 25 mcg (1,000 unit) capsule Active 25 ug PO DAILY March 17, 2021 12:00am Start: 11-27-2019 End: 03-17-2020 take 1 capsule by mouth every month Cholecalciferol (Vitamin D3) 1,250 mcg (50,000 unit) capsule Discontinued 1250 ug PO EVERY MONTH November 27, 2019 12:00am March 17, 2020 3:03pm fluticasone propionate 0.05 mg/actuat metered dose nasal spray (5 sources) Corticosteroid Start: 01-05-2021 Fluticasone Pr opionate (Flonase Allergy Relief) 50 mcg/actuation [place],Suspension Active 1 NMA INTRANASAL DAILY as needed for Nasal Congestion January 05, 2021 12:00am Start: 01-05-2021 Fluticasone Pr opionate (Flonase Allergy Relief) 50 mcg/actuation [place],Suspension Active 1 SPRAY INTRANASAL DAILY January 05, 2021 12:00am ibuprofen 600 mg oral tablet (1 source) Nonsteroidal Anti-inflammatory Drug Start: 10-18-2023 take 1 tablet by mouth every twelve hours as needed for pain Ibuprofen 600 mg tablet Active 600 mg PO Q12H as needed for pain 60 October 18, 2023 12:00am Completed/Discontinued Medications Medication Drug Class(es) Dates Sig (Normalized) Sig (Original) amoxicillin 875 mg oral tablet (5 sources) Penicillin-class Antibacterial Start: 7 End: 8 take 1 tablet by mouth twice daily Amoxicillin 875 mg tablet Discontinued 875 mg PO TWICE A DAY June 23, 2017 1:00am February 18, 2018 10:44am azithromycin 250 mg oral tablet (1 source) Macrolide Antimicrobial Start: 3 End: 4 take 2-5 tablets by mouth once daily Azithromycin 250 mg tablet Discontinued 0 PO .COMPLEX 6 July 06, 2023 1:00am March 31, 2024 10:11am take 500 mg today (day 1), then 250 mg for 4 days (days 2-5) PO calcium ascorbate 500 mg oral tablet (10 sources) Start: 1 End: 3 take 1 tablet by mouth once daily as needed Ascorbate Calcium (Vitamin C) 500 mg tablet Discontinued 500 mg PO DAILY as needed March 20, 2022 3:52pm May 24, 2023 9:29am COMPRESSION STOCKINGS (2 sources) Start: 4 COMPRESSION STOCKINGS 20- 30 mmhg compession -knee high COMPRESSION STOCKINGS Scottie Melgar MD fludrocortisone 0.1 mg oral tablet (4 sources) Start: 4 End: 5 take 1 tablet by mouth once daily FLUDROCORTISONE ACETATE 0.1 MG TABS One tablet by mouth daily FLUDROCORTISONE ACETATE [id number] Scottie Melgar MD methylPREDNISolone 4 mg oral tablet (5 sources) Corticosteroid Start: 0 End: 0 take 1 tablet by mouth once Methylprednisolone (Medrol (Carlos)) 4 mg tablets,dose pack Discontinued 0 PO per package directions November 27, 2019 12:00am March 17, 2020 3:03pm PO PER PKG DIR montelukast 10 mg oral tablet (1 source) Leukotriene Receptor Antagonist Start: 3 End: 4 take 1 tablet by mouth once daily in the evening Montelukast (Singulair) 10 mg tablet Discontinued 10 mg PO EVERY EVENING July 06, 2023 1:00am March 31, 2024 10:12am pantoprazole 40 mg delayed release oral tablet (1 source) Proton Pump Inhibitor Start: 4 End: 4 take 1 tablet by mouth once daily Pantoprazole (Protonix) 40 mg tablet,delayed release (DR/EC) Discontinued 40 mg PO DAILY October 18, 2023 12:00am March 31, 2024 10:12am valACYclovir 1000 mg oral tablet (5 sources) Herpesvirus Nucleoside Analog DNA Polymerase Inhibitor, Herpes Simplex Virus Nucleoside Analog DNA Polymerase Inhibitor, Herpes Zoster Virus Nucleoside Analog DNA Polymerase Inhibitor Start: 0 End: 0 Valacyclovir (Valtrex) 1 gram tablet Discontinued 1000 mg PO THREE TIMES A DAY November 27, 2019 12:00am March 17, 2020 3:03pm Zinc (10 sources) Start: 2 End: 3 take 1 tablet by mouth once daily as needed Zinc 50 mg tablet Discontinued 50 mg PO DAILY as needed March 20, 2022 3:52pm May 24, 2023 9:29am Start: 03-20-2022 take 50 mg by mouth once daily Zinc Active 50 MG PO DAILY March 20, 2022 3:52pm Start: 03-17-2021 End: 03-20-2022 take 1 tablet by mouth once daily Zinc 50 mg tablet Discontinued 50 mg PO DAILY March 17, 2021 12:00am March 20, 2022 3:52pm Start: 03-17-2021 End: 03-20-2022 take 50 mg by mouth once daily Zinc Discontinued 50 MG PO DAILY March 17, 2021 12:00am March 20, 2022 3:52pm Problems Active Problems Problem Classification Problem Date Documented Da te Episodic/Chronic Cardiac dysrhythmias (14 sources) Multiple premature ventricular complexes; Translations: [Ventricular premature depolarization] Chronic Cardiac dysrhythmias (1 source) Palpitations; Translations: [Palpitations] 05-24-2023 Episodic Headache; including migraine (5 sources) Headache; Translations: [Headache] 08-11-2021 Episodic Heart valve disorders (7 sources) Mitral valve prolapse; Translations: [Nonrheumatic mitral (valve) prolapse] Chronic Immunizations and screening for infectious disease (8 sources) Contact with or exposure to other viral diseases; Translations: [Exposure to COVID-19 virus] 08-11-2021 Episodic Menopausal disorders (1 source) Menopausal syndrome; Translations: [Menopausal and female climacteric states] 03-31-2024 Chronic Comment on above: [place] Nonmalignant breast conditions (1 source) Fibrocystic disease of breast; Translations: [Diffuse cystic mastopathy of unspecified breast] 03-31-2024 Chronic Nonspecific chest pain (5 sources) Chest pain; Translations: [Chest pain, unspecified] 07-10-2018 Episodic Syncope (9 sources) Vasovagal syncope; Translations: [Syncope and collapse] Onset: 12-31-2013 12-31-2013 Episodic Thyroid disorders (1 source) Hypothyroidism, unspecified; Translations: [Hypothyroidism, unspecified] Onset: 11-27-2024 Chronic Viral infection (5 sources) Herpes zoster; Translations: [Zoster without complications] 11-27-2019 Episodic Past or Other Problems Problem Classification Problem Date Documented Da te Episodic/Chronic Conditions associated with dizziness or vertigo (2 sources) Dizziness and giddiness; Translations: [Dizziness and giddiness] Onset: 12-31-2013 12-31-2013 Episodic Other nutritional; endocrine; and metabolic disorders (6 sources) Body mass index (BMI) 28.0-28.9, adult; Translations: [Body mass index (BMI) 27.0-27.9, adult] Onset: 01-08-2014 02-22-2015 Episodic Other screening for suspected conditions (not mental disorders or infectious disease) (7 sources) Patient encounter status; Translations: [Encounter for screening for malignant neoplasm of intestinal tract, unspecified] Onset: 03-31-2024 01-07-2021 Episodic Residual codes; unclassified (1 source) Flushing; Translations: [Flushing] Onset: 03-31-2024 Episodic Results Test Name Value Interpretation Reference Range Facility Thyroid Peroxidase ABon 05-2 THYR PEROX AB 118 IU/mL High 0-34 [facility] Comment on above: Result Comment: Perf ormed at: CB - [facility] [address] [id number] Synthetic Plasterer: Feliberto Gregory PhD, Phone: [phone] Performed By: #### L 4016.6291 #### [facility] [address] [place], [place], [id number] T4 Free Directon 11-24-2024 T4 FREE DIRECT 1.50 ng/dL High 0.76-1.46 [facility] Comment on above: Order Comment: Order Date: 09/23/24 Order Info: 3016-3 - TSH Order Info: 3024-7 - T4F Performed By: #### L [id number], L506.0400 #### [facility] [address] [place], [place], [address] Thyroid Stim Hormone (TSH)on 11-24-2024 TSH 0.006 uIU/mL Low 0.300-4.200 [facility] Comment on above: Order Comment: Order Date: 09/23/24 Order Info: 3016-3 - TSH Order Info: 3024-7 - T4F Performed By: #### L [id number], L506.0400 #### [facility] [address] [place], [place], [address] T4 Free Directon 09-22-2024 T4 FREE DIRECT 2.10 ng/dL High 0.76-1.46 [facility] Comment on above: Order Comment: Order Date: 07/22/24 Order Info: 3016-3 - TSH Order Info: 3024-7 - T4F Performed By: #### L [id number], L506.0400 #### [facility] [address] [place], [place], [address] T4 freeOrdered By: Adrian Bolden on 09-22-2024 Free T4 [Mass/Vol] 2.10 ng/dL High 0.76-1.46 [facility] TSH DL <= 0.005 mIU/L QnOrde red By: Kyle Bolden on 09-22-2024 Thyroid Stimulating Hormone (TSH) 0.017 uIU/mL Low 0.300-4.200 [facility] Thyroid Stim Hormone (TSH)on 09-22-2024 TSH 0.017 uIU/mL Low 0.300-4.200 [facility] Comment on above: Order Comment: Order Date: 07/22/24 Order Info: 3016-3 - TSH Order Info: 3024-7 - T4F Performed By: #### L [id number], L506.0400 #### [facility] [address] [place], [place], [address] Direct serum free thyroxine (FT4) measurementOrdered By: Kyle Bolden on 07-01-2024 Free T4 [Mass/Vol] 1.09 ng/dL 0.76-1.46 [facility] T4 Free Directon 07-01-2024 T4 FREE DIRECT 1.09 ng/dL Normal 0.76-1.46 [facility] Comment on above: Order Comment: Order Date: 06/30/24 Order Info: 3016-3 - TSH Order Info: 302-7 - T4F Performed By: #### L 506.0400 #### [facility] [address] [place], [place], [address] TSH QnOrdered By: Marcus Bolden on 07-01-2024 Thyroid Stimulating Hormone (TSH) 0.449 uIU/mL 0.358-3.740 [facility] Thyroid Stim Hormone (TSH)on 07-01-2024 TSH 0.449 uIU/mL Normal 0.358-3.740 [facility] Comment on above: Order Comment: Order Date: 06/30/24 Order Info: 3016-3 - TSH Order Info: 3024-7 - T4F Performed By: #### L [id number] #### [facility] [address] [place], [place], [address] Free T3on 05-20-2024 Free T3 [Mass/Vol] 3.0 pg/mL Normal 2.18-3.98 [facility] Comment on above: Order Comment: Order Date: 07/22/24 Order Info: 3016-3 - TSH Order Info: 3024-7 - T4F Performed By: #### L [id number], L506.0400 #### [facility] [address] [place], [address] T4 Free Directon 05-20-2024 T4 FREE DIRECT 1.48 ng/dL High 0.76-1.46 [facility] Comment on above: Order Comment: Order Date: 07/22/24 Order Info: 3016-3 - TSH Order Info: 302-7 - T4F Performed By: #### L [id number], L506.0400 #### [facility] [address] [place], [address] Thyroid Stim Hormone (TSH)on 05-20-2024 TSH 0.086 uIU/mL Low 0.358-3.740 [facility] Comment on above: Order Comment: Order Date: 07/22/24 Order Info: 3016-3 - TSH Order Info: 3024-7 - T4F Performed By: #### L [id number], L506.0400 #### [facility] [address] [place], [address] SCRN MAMM (CAD)W/ROCAEL BILATo n 04-29-2024 SCRN MAMM (CAD)W/ROCAEL BILAT [facility] Imaging Services [address] [place] [address] SCRN MAMM (CAD)W/ROCAEL BILAT MR#: [id number] Acct: [id number] Name: JANICE SO Rep #: [id number] : 1970 F 53 From: You silverio MD PCP: Dr. Kyle Bolden MD Status: REG CL Study: SCRN MAMM (CAD)W/ROCAEL BILAT Date of Exam: 04/09 09/01 Exam# [id number] Ordering Dr: Whit Lindo NP, NP -[id number] MAMMOGRAPHY - BILATERAL SCREENING REASON FOR EXAM: Female, 53 years old. Routine annual screening examination. PERTINENT HISTORY: Grandmother with breast cancer. History of right breast cyst. TECHNIQUE: Digital bilateral breast rocael (3D mammographic acquisition) in the CC and MLO projections. 2-D mediolateral oblique (MLO) and craniocaudad (CC) views of both breasts were obtained. CAD: Full Field Digital Mammography with Computer Added Detection was performed. COMPARISON: Comparison is made with prior study dated April 27, 2023 and April 17, 2022. FINDINGS: Breast Composition: The breasts are heterogeneously dense, which may obscure small masses. Stable 1 cm x 1.1 cm well-defined nodule in the upper outer quadrant of the right breast. This was demonstrated to be a cyst on prior sonogram. No other significant abnormalities are identified. There has been no significant change since the prior study. BI/SCRN MAMM (CAD)W/ROCAEL BILAT IMPRESSION: Stable bilateral screening mammogram. Yearly follow-up mammogram recommended. (A) ASSESSMENT CATEGORY: BIRADS Category 2: Benign. A letter regarding these results will be sent to the patient by the facility within 30 days. Approximately 10% of breast cancers are not detected by mammography. A normal mammogram should not delay biopsy of a clinically suspicious abnormality. [id number] Electronically Signed: You Adkins MD at 10:09 EDT , CC: RAY Lindo; Dr. Kyle Bolden MD Billing Spec: Signed Normal [facility] Thyroid Peroxidase ABon - THYR PEROX AB 120 IU/mL High 0-34 [facility] Comment on above: Result Comment: Perf ormed at: [facility] [address] [id number] Synthetic Plasterer: Feliberto Gregory PhD, Phone: [phone] Performed By: #### L [id number], L506.0400 #### [facility] [address] [place], [address] T4 Free Directon 04-01-2024 T4 FREE DIRECT 0.72 ng/dL Low 0.76-1.46 [facility] Comment on above: Performed By: #### L [id number], L506.0400 #### [facility] [address] [place], [address] Thyroid Stim Hormone (TSH)on 04-01-2024 TSH 9.540 uIU/mL High 0.358-3.740 [facility] Comment on above: Performed By: #### L [id number], L506.0400 #### [facility] [address] [place], [address] Vitamin D,25 Hydroxyon 04-01 Vitamin D 25-OH 23.8 ng/mL Normal [facility] Comment on above: Result Comment: Nani min D 25(OH) Status Range Deficiency <20 ng/mL (50nmol/L) Insufficiency 20 - 30 ng/mL (50 - 75 nmol/L) Sufficiency 30 - 100 ng/mL (75 - 250 nmol/L) Toxicity >100 ng/mL (>250 nmol/L) Performed By: #### L [id number], L506.0400 #### [facility] [address] [place], [address] [employer] Office Visit Reporton 03-31-2024 [employer] Office Visit Report [facility]'[address], [address] [place] [id number] OFFICE VISIT Date of Service: 03/31/24 MR#: [id number] Acct: [id number] Name: JANICE SO Rep #: [id number] : 1970 Provider: RAY ocampo Age/Sex: 53/F Location: [facility] Status: Signed Intake Vital Signs 03/20/22 15:51 05/24/23 08:27 07/06/23 09:28 03/31/24 10:06 Height 5 ft 4 in 5 ft 4 in 5 ft 4 in 5 ft 4 in Weight: 201 lb 186 lb 4 oz BMI 34.4 31.9 BP 132/85 H 124/82 H Blood Pressure Location Lt brachial Position Sitting Respiration 18 Pulse 81 Pulse Source Monitor Pulse Oximetry (%) 99 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: Annual Rf Test Engineer Required: No Is patient in pain?: No Allergies tramadol (From Ultracet) Allergy (Severe, Verified 03/31/24 10:21) felt as if she was going to pass out Medications ???Medication ???Instructions ???Recorded ???Confirmed ???Type cetirizine 10 mg capsule (Zyrtec) 10 mg PO DAILY PRN ALLERGIES 01/05/21 03/31/24 History fluticasone propionate 50 1 spray intranasal DAILY PRN Nasal 01/05/21 03/31/24 History mcg/actuation nasal Congestion spray,suspension (Flonase Allergy Relief) cholecalciferol (vitamin D3) 25 25 mcg PO DAILY 03/17/21 03/31/24 History mcg (1,000 unit) capsule ibuprofen 600 mg tablet 600 mg PO Q12H PRN pain #60 tabs 10/18/23 03/31/24 Rx Is last menstrual period known: Yes Last Menstrual Period: 12/10/23 Post menopausal: No Patient : No : No PFSH Medical History (Updated 03/31/24 @ 10:41 by Whit Lindo NP, RAY) Shingles Obesity Wears glasses Anxiety Back pain Syncope Heartburn Non-smoker History of edema History of stress test Cardiology follow-up encounter History of irregular heartbeat Hemorrhoids Loss of consciousness Nonrheumatic mitral (valve) prolapse Premature ventricular contraction Premature atrial contractions Syncope, vasovagal History of hemorrhoids Surgical History History of lymph node biopsy H/O section Family History Mother Hypertension Diabetes Brother Diabetes Father Parkinson disease Grandmother Breast cancer Grandfather Heart disease Diabetes Social History (Updated 03/31/24 @ 10:16 by Aminata Saunders) household members: spouse current occupational status: employed 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 Date Name GA/Weeks Outcome Route Bth Weight Infant Gen Labor Lgth Anesthesia Del Locatn Provider FOB Unknown Alvaraod Unknown Makayla Unknown Mee HPI Encounter for routine gynecological examination Details: JANICE SO is a 53 year old who presents for new patient annual exam. 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 Previous patient Dr Quintero. Menses more irregular, skipping some months. This year had one Aug, October and December. Noting more hot flashes during the day. States manageable currently. Last PAP: 2020 History of abnormal PAP: no Last mammogram: 04/2023 History of abnormal mammogram: no Colon cancer screenin Other preventative health care screenings: Yuan Female Reproductive History Last Menstrual Period: 12/10/23 Questions: metorrhagia: No, sexually active: Yes, dyspareunia: No and PCB: No Menopausal Symptoms: Yes hot flashes and No sleep problems Menopausal Treatment: No HRT, No Vaginal Estrogen, No Osphena, No OTC treatments and No prescription non-hormonal treatment ROS Const Constitutional: Denies fatigue, weight gain or weight loss Cardio Card: Denies chest pain Resp Resp: Denies cough or dyspnea on exertion GI GI: Denies abdominal pain, bloating, change in stool character, constipation or vomiting : Reports as per HPI and hot flashes Exam Const General: cooperative, healthy appearing, no acute distress and well developed Orientation: alert, oriented to person and oriented to place HENMT Head: normal to inspection Neck Neck: normal visual inspection Thyroid: thyroid normal Lymphatic: no lymphadenopathy noted Chest Breast inspection: normal inspection of the breasts and normal inspection of the axillae Breast palpation: normal palpation of the breasts, normal palpation of the axillae and no axillary lymphadenopathy Resp Ef (more content not included)... Normal [facility] CBC, Employeeon 01-02-2024 Absolute Lymph 1.35 X10 3/uL Normal 0.83-4.51 [facility] Comment on above: Performed By: #### L 100.0200, L400.0100, L500.2900 #### [facility] [address] [place], [address] Absolute Neut 2.7 X10 3/uL Normal 2.0-7.7 [facility] Comment on above: Performed By: #### L 100.0200, L400.0100, L500.2900 #### [facility] [address] [place], [address] Basophils/100 WBC (Bld) 1.1 % High 0-1 [facility] Comment on above: Performed By: #### L 100.0200, L400.0100, L500.2900 #### [facility] [address] [place], [address] Eosinophils/100 WBC (Bld) 4.3 % Normal 0-5 [facility] Comment on above: Performed By: #### L 100.0200, L400.0100, L500.2900 #### [facility] [address] [place], [address] Erythrocyte distribution width (RBC) [Ratio] 12.2 % Normal 11.6-14.6 [facility] Comment on above: Performed By: #### L 100.0200, L400.0100, L500.2900 #### [facility] [address] [place], [address] Hematocrit (Bld) [Volume fraction] 46.5 % Normal 37-47 [facility] Comment on above: Performed By: #### L 100.0200, L400.0100, L500.2900 #### [facility] [address] [place], [address] Hemoglobin (Bld) [Mass/Vol] 15.5 g/dL High 12.0-15.0 [facility] Comment on above: Performed By: #### L 100.0200, L400.0100, L500.2900 #### [facility] [address] [place], [address] Lymphocytes/100 WBC (Bld) 29.1 % Normal 19-41 [facility] Comment on above: Performed By: #### L 100.0200, L400.0100, L500.2900 #### [facility] [address] [place], [address] MCH (RBC) [Entitic mass] 28.3 pg Normal 27.0-32.0 [facility] Comment on above: Performed By: #### L 100.0200, L400.0100, L500.2900 #### [facility] [address] [place], [address] MCHC (RBC) [Mass/Vol] 33.3 g/dL Normal 32-36 [facility] Comment on above: Performed By: #### L 100.0200, L400.0100, L500.2900 #### [facility] [address] [place], [address] MCV (RBC) [Entitic vol] 84.9 fL Normal 81-[address] [facility] Comment on above: Performed By: #### L 100.0200, L400.0100, L500.2900 #### [facility] [address] [place], [address] Monocytes/100 WBC (Bld) 7.8 % Normal 0-10 [facility] Comment on above: Performed By: #### L 100.0200, L400.0100, L500.2900 #### [facility] [address] [place], [address] Neutrophils/100 WBC (Bld) 57.5 % Normal 47-70 [facility] Comment on above: Performed By: #### L 100.0200, L400.0100, L500.2900 #### [facility] [address] [place], [address] NRBC # 0.00 10 3/uL Normal 0-5 [facility] Comment on above: Performed By: #### L 100.0200, L400.0100, L500.2900 #### [facility] [address] [place], [address] Nucleated RBC (Bld) [#/Vol] 0 10*3/uL Normal 0-5 [facility] Comment on above: Performed By: #### L 100.0200, L400.0100, L500.2900 #### [facility] [address] [place], [address] Platelet mean volume (Bld) [Entitic vol] 9.5 fL Normal 6.2-12.0 [facility] Comment on above: Performed By: #### L 100.0200, L400.0100, L500.2900 #### [facility] [address] [place], [address] Platelets (Bld) [#/Vol] 255 10*3/uL Normal 150-450 [facility] Comment on above: Performed By: #### L 100.0200, L400.0100, L500.2900 #### [facility] [address] [place], [address] RBC (Bld) [#/Vol] 5.48 10*6/uL High 4.2-5.4 [facility] Comment on above: Performed By: #### L 100.0200, L400.0100, L500.2900 #### [facility] [address] [place], [address] RDW SD 37.5 fl Normal 35.1-43.9 [facility] Comment on above: Performed By: #### L 100.0200, L400.0100, L500.2900 #### [facility] [address] [place], [address] WBC (Bld) [#/Vol] 4.6 10*3/uL Normal 4.4-11.0 [facility] Comment on above: Performed By: #### L 100.0200, L400.0100, L500.2900 #### [facility] [address] [place], [address] Employee Profileon 4 Albumin [Mass/Vol] 3.6 g/dL Normal 3.2-5.0 [facility] Comment on above: Performed By: #### L 501.9520, L506.0400 #### [facility] [address] [place], [address] Albumin/Globulin [Mass ratio] 1.1 {ratio} Normal 0.9-2.4 [facility] Comment on above: Performed By: #### L 501.9520, L506.0400 #### [facility] [address] [place], [address] ALK P 54 U/L Normal 45-117 [facility] Comment on above: Performed By: #### L 501.9520, L506.0400 #### [facility] [address] [place], [address] ALT [Catalytic activity/Vol] 28 U/L Normal 13-56 [facility] Comment on above: Performed By: #### L 501.9520, L506.0400 #### [facility] [address] [place], [address] AST [Catalytic activity/Vol] 43 U/L High 15-37 [facility] Comment on above: Performed By: #### L 501.9520, L506.0400 #### [facility] [address] [place], [address] Bilirubin [Mass/Vol] 0.60 mg/dL Normal 0.20-1.00 [facility] Comment on above: Result Comment: For patients on eltrombopag therapy, use of Dimension [place] TBIL is not recommended. Performed By: #### L 501.9520, L506.0400 #### [facility] [address] [place], [address] Bilirubin.direct [Mass/Vol] 0.16 mg/dL Normal 0.00-0.30 [facility] Comment on above: Performed By: #### L 501.9520, L506.0400 #### [facility] [address] [place], [address] BUN/CRE 23.0 RATIO High 10-20 [facility] Comment on above: Performed By: #### L 501.9520, L506.0400 #### [facility] [address] [place], [address] CA,Total 9.2 mg/dL Normal 8.5-10.1 [facility] Comment on above: Performed By: #### L 501.9520, L506.0400 #### [facility] [address] [place], [address] Chloride [Moles/Vol] 106 mmol/L Normal 98-107 [facility] Comment on above: Performed By: #### L 501.9520, L506.0400 #### [facility] [address] [place], [address] CHOL:HDL 3.50 Normal [facility] Comment on above: Performed By: #### L 501.9520, L506.0400 #### [facility] [address] [place], [address] Cholesterol [Mass/Vol] 187 mg/dL Normal 200 [facility] Comment on above: Result Comment: <200 mg/dL Desirable 200-240 mg/dL Borderline >240 mg/dL High Risk Performed By: #### L 501.9520, L506.0400 #### [facility] [address] [place], [address] Cholesterol in HDL [Mass/Vol] 53 mg/dL Normal [facility] Comment on above: Result Comment: The drugs N-Acetylcysteine and Metamizole may falsely depress this assay. Reference Range HDL <40 mg/dL Low HDL Cholesterol HDL >or= 60 mg/dL High HDL Cholesterol Performed By: #### L 501.9520, L506.0400 #### [facility] [address] [place], [address] Cholesterol in LDL [Mass/Vol] 113 mg/dL Normal 0-130 [facility] Comment on above: Performed By: #### L 501.9520, L506.0400 #### [facility] [address] [place], [address] Cholesterol in VLDL [Mass/Vol] 21 mg/dL Normal 5-40 [facility] Comment on above: Performed By: #### L 501.9520, L506.0400 #### [facility] [address] [place], [address] CO2 [Moles/Vol] 27.0 mmol/L Normal 21.0-32.0 [facility] Comment on above: Performed By: #### L 501.9520, L506.0400 #### [facility] [address] [place], [address] Creatinine [Mass/Vol] 0.78 mg/dL Normal 0.55-1.02 [facility] Comment on above: Result Comment: The validity of the calculated GFR GFRAA in patients over 70 years has not been determined. Clinical correlation is essential. Performed By: #### L 501.9520, L506.0400 #### [facility] [address] [place], [address] EST GFR - AA 99 mL/min Normal >60 [facility] Comment on above: Result Comment: Afri can South African GFR Calc Performed By: #### L 501.9520, L506.0400 #### [facility] [address] [place], [address] GAP 5 Normal 5-15 [facility] Comment on above: Performed By: #### L 501.9520, L506.0400 #### [facility] [address] [place], [address] GFR/1.73 sq M.predicted among non-blacks MDRD (S/P/Bld) [Vol rate/Area] 82 mL/min/{1.73_m2} Normal >60 [facility] Comment on above: Result Comment: Non- GFR Calc Performed By: #### L 501.9520, L506.0400 #### [facility] [address] [place], [address] Globulin (S) [Mass/Vol] 3.3 g/dL Normal 2.2-4.2 [facility] Comment on above: Performed By: #### L 501.9520, L506.0400 #### [facility] [address] [place], [address] Glucose [Mass/Vol] 120 mg/dL High 74-106 [facility] Comment on above: Result Comment: Fast ing Glucose result from 100 to 125 mg/dL suggests IMPAIRED HOMEOSTASIS per A.D.A. criteria. Performed By: #### L 501.9520, L506.0400 #### [facility] [address] [place], [address] LDH 197 U/L Normal 84-246 [facility] Comment on above: Performed By: #### L 501.9520, L506.0400 #### [facility] [address] [place], [address] Phosphate [Mass/Vol] 3.1 mg/dL Normal 2.5-4.9 [facility] Comment on above: Performed By: #### L 501.9520, L506.0400 #### [facility] [address] [place], [address] Potassium [Moles/Vol] 3.8 mmol/L Normal 3.5-5.1 [facility] Comment on above: Performed By: #### L 501.9520, L506.0400 #### [facility] [address] [place], [address] Sodium [Moles/Vol] 138 mmol/L Normal 136-145 [facility] Comment on above: Performed By: #### L 501.9520, L506.0400 #### [facility] [address] [place], [address] T PROT 6.9 g/dL Normal 6.4-8.2 [facility] Comment on above: Performed By: #### L 501.9520, L506.0400 #### [facility] [address] [place], [address] Triglyceride [Mass/Vol] 105 mg/dL Normal [facility] Comment on above: Result Comment: The drugs N-Acetylcysteine and Metamizole may falsely depress this assay. Serum Triglycerides Reference Interval Normal <150 mg/dL Borderline high 150 - 199 mg/dL High 200 - 499 mg/dL Very High > or = 500 mg/dL Performed By: #### L 501.9520, L506.0400 #### [facility] [address] [place], [address] Urea nitrogen [Mass/Vol] 18 mg/dL Normal 7-18 [facility] Comment on above: Performed By: #### L 501.9520, L506.0400 #### [facility] [address] [place], [address] URIC 3.4 mg/dL Normal 2.6-6.0 [facility] Comment on above: Result Comment: The drugs N-Acetylcysteine and Metamizole may falsely depress this assay. Performed By: #### L 501.9520, L506.0400 #### [facility] [address] [place], [address] Urinalysis, Employeeon 01-01 BILIRUBIN URINE Negative Normal Negative [facility] Comment on above: Performed By: #### L 501.9520, L506.0400 #### [facility] [address] [place], [address] Clarity (U) Clear Normal Clear [facility] Comment on above: Performed By: #### L 501.9520, L506.0400 #### [facility] [address] [place], [address] Color (U) Yellow Normal Yellow [facility] Comment on above: Performed By: #### L 501.9520, L506.0400 #### [facility] [address] [place], [address] GLUCOSE, UR Normal Normal Normal [facility] Comment on above: Performed By: #### L 501.9520, L506.0400 #### [facility] [address] [place], [address] KETONE UR Negative Normal Negative [facility] Comment on above: Performed By: #### L 501.9520, L506.0400 #### [facility] [address] [place], [address] LEUK ESTERASE Negative Normal Negative [facility] Comment on above: Performed By: #### L 501.9520, L506.0400 #### [facility] [address] [place], [address] Nitrite Ql (U) Negative Normal Negative [facility] Comment on above: Performed By: #### L 501.9520, L506.0400 #### [facility] [address] [place], [address] OCCULT BLOOD-UR Negative Normal Negative [facility] Comment on above: Performed By: #### L 501.9520, L506.0400 #### [facility] [address] [place], [address] pH UR 7.0 Normal 5.0 - 8.0 [facility] Comment on above: Performed By: #### L 501.9520, L506.0400 #### [facility] [address] [place], [address] PROT DIPSTX Negative Normal Negative [facility] Comment on above: Performed By: #### L 501.9520, L506.0400 #### [facility] [address] [place], [address] SP.GR. DIPSTX 1.010 Normal 1.002-1.030 [facility] Comment on above: Performed By: #### L 501.9520, L506.0400 #### [facility] [address] [place], [address] UROBILI Normal Normal Normal [facility] Comment on above: Performed By: #### L 501.9520, L506.0400 #### [facility] [address] [place], [address] Whole blood hemoglobin A1c/t otal hemoglobin ratio (mass fraction)Ordered By: Dr. Bolden on 12-19-2022 HbA1c (Bld) [Mass fraction] 5.6 % 3.8-5.6 [facility] Comment on above: Normal < 5.7 % Predi abetic 5.7 - 6.4 % Diabetic >or= 6.5 % Please note range changes. Absolute lymphocyte countOrd ered By: HEALTH ASSESSMENT on 12-14-2022 Lymphocytes Auto (Unsp spec) [#/Vol] 1.40 10*3/uL 0.83-4.51 [facility] Absolute reticulocyte countO rdered By: HEALTH ASSESSMENT on 12-14-2022 Reticulocytes (Bld) [#/Vol] 0.00 10*3/uL 0-5 [facility] Basophil percentageOrdered B y: HEALTH ASSESSMENT on 12-14-2022 Basophil percentage 2.9 mg/dL 2.5-4.9 [facility] Bilirubin [Mass/Vol] 0.60 mg/dL 0.20-1.00 [facility] Comment on above: For patients on eltr ombopag therapy, use of Dimension [place] TBIL is not recommended. Chloride [Moles/Vol] 107 mmol/L 98-107 [facility] Cholesterol [Mass/Vol] 178 mg/dL <200 [facility] Comment on above: <200 mg/dL Desirable 200-240 mg/dL Borderline >240 mg/dL High Risk Glucose [Mass/Vol] 110 mg/dL 74-106 [facility] Comment on above: Fasting Glucose resu lt from 100 to 125 mg/dL suggests IMPAIRED HOMEOSTASIS per A.D.A. criteria. LDH [Catalytic activity/Vol] 171 U/L 84-246 [facility] Neutrophils (Bld) [#/Vol] 2.1 10*3/uL 2.0-7.7 [facility] Potassium [Moles/Vol] 3.7 mmol/L 3.5-5.1 [facility] Protein [Mass/Vol] 7.1 g/dL 6.4-8.2 [facility] Sodium [Moles/Vol] 140 mmol/L 136-145 [facility] Triglyceride [Mass/Vol] 84 mg/dL <199 [facility] Comment on above: The drugs N-Acetylcy steine and Metamizole may falsely depress this assay.Serum Triglycerides Reference Interval Normal <150 mg/dL Borderline high 150 - 199 mg/dL High 200 - 499 mg/dL Very High > or = 500 mg/dL WBC (Bld) [#/Vol] 4.1 10*3/uL 4.4-11.0 [facility] Bilirubin Test strip Ql (U)O rdered By: HEALTH ASSESSMENT on 12-14-2022 Bilirubin Ql (U) Negative Negative [facility] Blood erythrocytes count (nu mber/volume)Ordered By: HEALTH ASSESSMENT on 12-14-2022 RBC (Bld) [#/Vol] 5.55 10*6/uL 4.2-5.4 [facility] Blood hemoglobin measurement (mass/volume)Ordered By: HEALTH ASSESSMENT on 12-14-2022 Hemoglobin (Bld) [Mass/Vol] 15.8 g/dL 12.0-15.0 [facility] Blood platelet mean volumeOr dered By: HEALTH ASSESSMENT on 12-14-2022 Platelet mean volume (Bld) [Entitic vol] 9.9 fL 6.2-12.0 [facility] Determination of erythrocyte mean corpuscular volume (MCV)Ordered By: HEALTH ASSESSMENT on 12-14-2022 MCV (RBC) [Entitic vol] 85.4 fL 81-99 [facility] Direct bilirubinOrdered By: HEALTH ASSESSMENT on 12-14-2022 Bilirubin.direct [Mass/Vol] 0.17 mg/dL 0.00-0.30 [facility] Hematocrit Auto (Bld) [Volum e fraction]Ordered By: HEALTH ASSESSMENT on 12-14-2022 Hematocrit (Bld) [Volume fraction] 47.4 % 37-47 [facility] Ketones Test strip Ql (U)Ord ered By: HEALTH ASSESSMENT on 12-14-2022 Ketones Ql (U) Negative Negative [facility] Laboratory - Chemistry and C hemistry - challengeOrdered By: HEALTH ASSESSMENT on 12-14-2022 ALP [Catalytic activity/Vol] 49 U/L 45-117 [facility] ALT [Catalytic activity/Vol] 17 U/L 13-56 [facility] Cholesterol.total/Choles terol in HDL [Mass ratio] 3.50 {ratio} [facility] CO2 [Moles/Vol] 29.0 mmol/L 21.0-32.0 [facility] Globulin (S) [Mass/Vol] 3.3 g/dL 2.2-4.2 [facility] Urea nitrogen/Creatinine [Mass ratio] 20.2 mg/mg 10-20 [facility] - Hematology and Cell countsOrdered By: HEALTH ASSESSMENT on 12-14-2022 Erythrocyte distribution width (RBC) [Entitic vol] 38.5 fL 35.1-43.9 [facility] Erythrocyte distribution width (RBC) [Ratio] 12.3 % 11.6-14.6 [facility] MCH (RBC) [Entitic mass] 28.5 pg 27.0-32.0 [facility] Nucleated RBC/100 WBC (Bld) [Ratio] 0 % 0-5 [facility] MCHC Auto (RBC) [Mass/Vol]Or dered By: HEALTH ASSESSMENT on 12-14-2022 MCHC (RBC) [Mass/Vol] 33.3 g/dL 32-36 [facility] Nitrite Test strip Ql (U)Ord ered By: HEALTH ASSESSMENT on 12-14-2022 Nitrite Ql (U) Negative Negative [facility] No Panel InformationOrdered By: HEALTH ASSESSMENT on 12-14-2022 Estimated GFR (MDRD) Amer 105 mL/min >60 [facility] Comment on above: GFR Calc Estimated GFR (MDRD) Non-Af Amer 87 mL/min >60 [facility] Comment on above: Non- GFR Calc Platelets bldOrdered By: Moreno [facility] ASSESSMENT on 12-14-2022 Platelets (Bld) [#/Vol] 267 10*3/uL 150-450 [facility] Protein Test strip Ql (U)Ord ered By: HEALTH ASSESSMENT on 12-14-2022 Protein Ql (U) Negative Negative [facility] Segmented neutrophils/100 WB C Auto (Bld)Ordered By: HEALTH ASSESSMENT on 12-14-2022 Segmented neutrophils/100 WBC (Bld) 50.5 % 47-70 [facility] Serum or plasma albumin shasta urement (mass/volume)Ordered By: HEALTH ASSESSMENT on 12-14-2022 Albumin [Mass/Vol] 3.8 g/dL 3.2-5.0 [facility] Serum or plasma albumin/glob ulin mass ratioOrdered By: HEALTH ASSESSMENT on 12-14-2022 Albumin/Globulin [Mass ratio] 1.2 {ratio} 0.9-2.4 [facility] Serum or plasma calcium shasta urement (mass/volume)Ordered By: HEALTH ASSESSMENT on 12-14-2022 Calcium [Mass/Vol] 9.1 mg/dL 8.5-10.1 [facility] Serum or plasma cholesterol in HDL measurement (mass/volume)Ordered By: HEALTH ASSESSMENT on 12-14-2022 Cholesterol in HDL [Mass/Vol] 51 mg/dL >40 [facility] Comment on above: The drugs N-Acetylcy steine and Metamizole may falsely depress this assay. Reference Range HDL <40 mg/dL Low HDL Cholesterol HDL >or= 60 mg/dL High HDL Cholesterol Serum or plasma cholesterol in VLDL measurement (mass/volume)Ordered By: HEALTH ASSESSMENT on 12-14-2022 Cholesterol in VLDL [Mass/Vol] 17 mg/dL 5-40 [facility] Serum or plasma creatinine m easurement (mass/volume)Ordered By: HEALTH ASSESSMENT on 12-14-2022 Creatinine [Mass/Vol] 0.74 mg/dL 0.55-1.02 [facility] Comment on above: The validity of the calculated GFR & GFRAA in patients over 70 years has not been determined. Clinical correlation is essential. Serum or plasma low density lipoprotein (LDL) cholesterol measurement (mass/volume)Ordered By: HEALTH ASSESSMENT on 12-14-2022 Cholesterol in LDL [Mass/Vol] 110 mg/dL 0-130 [facility] Serum or plasma urea nitroge n measurement (mass/volume)Ordered By: HEALTH ASSESSMENT on 12-14-2022 Urea nitrogen [Mass/Vol] 15 mg/dL 7-18 [facility] Serum or plasma uric acid me asurement (mass/volume)Ordered By: [facility] ASSESSMENT on 12-14-2022 Urate [Mass/Vol] 3.4 mg/dL 2.6-6.0 [facility] Comment on above: The drugs N-Acetylcy steine and Metamizole may falsely depress this assay. Thin prep Papanicolaou smear with manual screeningOrdered By: HEALTH ASSESSMENT on 12-14-2022 Thin prep Papanicolaou smear with manual screening 12 U/L 15-37 [facility] Thin prep Papanicolaou smear with manual screening 4 5-15 [facility] Urine blood detectionOrdered By: HEALTH ASSESSMENT on 12-14-2022 RBC Ql (U) Negative Negative [facility] Urine clarityOrdered By: HEA [facility] ASSESSMENT on 12-14-2022 Clarity (U) Sl. Cloudy Clear [facility] Urine color determinationOrd ered By: HEALTH ASSESSMENT on 12-14-2022 Color (U) Yellow Yellow [facility] Urine glucose detectionOrder ed By: HEALTH ASSESSMENT on 12-14-2022 Glucose Ql (U) Normal mg/dl Normal [facility] Urine leukocyte esterase det ection by dipstickOrdered By: HEALTH ASSESSMENT on 12-14-2022 Leukocyte esterase Test strip Ql (U) 25 /ul Negative [facility] Urine pHOrdered By: HEALTH A SSESSMENT on 12-14-2022 pH (U) 8.0 [pH] 5.0 - 8.0 [facility] Urine specific gravity measu rementOrdered By: HEALTH ASSESSMENT on 12-14-2022 Specific gravity (U) [Rel density] 1.015 1.002-1.030 [facility] Urobilinogen Auto test strip Ql (U)Ordered By: HEALTH ASSESSMENT on 12-14-2022 Urobilinogen Ql (U) Normal mg/dl Normal [facility] Laboratory - Microbiology an d Antimicrobial susceptibilityon 01-30-2022 SARS-CoV-2 (COVID-19) RNA KASSIDY+probe Ql (Unsp spec) Detected [facility] Work Phone: No Panel Informationon 01-30 POC Nasal Swab Influenza A,B Not detected [facility] Work Phone: POC Nasal Swab RSV Not detected [facility] Work Phone: Office Visiton 02-19-2017 Dietary management education, guidance, and counseling (procedure) yes Invalid Interpretation Code [facility] Work Phone: [phone] Documentation of current medications (procedure) Done Invalid Interpretation Code [facility] Work Phone: [phone] Fall risk assessment No Invalid Interpretation Code [facility] Work Phone: [phone] Tobacco use [facility] Never smoker Invalid Interpretation Code [facility] Work Phone: [phone] Replaced Document: Norma RODRIGUEZ Observationson 02-21-2016 electrocardiogram interpretation Sinus Rhythm WITHIN NORMAL LIMITS Invalid Interpretation Code [employer] [employer] Work Phone: [phone] GE use only - for [employer] import when terms are not otherwise specified 424 ms Invalid Interpretation Code [facility] Work Phone: [phone] P wave axis, electrocardiogram 33 deg Invalid Interpretation Code [employer] [facility] Work Phone: [phone] OR interval, electrocardiogram 158 ms Invalid Interpretation Code [employer] [facility] [employer] Work Phone: [phone] Pulse (Heart Rate) 66 /min Invalid Interpretation Code [facility] Work Phone: [phone] QRS axis, electrocardiogram 52 deg Invalid Interpretation Code [facility] Work Phone: [phone] QRS duration, electrocardiogram 92 ms Invalid Interpretation Code [facility] Work Phone: [phone] QT interval, electrocardiogram new path ms Invalid Interpretation Code [facility] Work Phone: [phone] T wave axis, electrocardiogram 31 deg Invalid Interpretation Code [facility] Work Phone: [phone] Clinical Lists Updateon 02-06 Left ventricular Ejection fraction 60 % Invalid Interpretation Code [employer] Phone: [phone] Clinical Lists Updateon 07-10 Alanine aminotransferase (ALT) 16 U/L Invalid Interpretation Code [employer] Phone: [phone] Alkaline phosphatase (ALP) 32 U/L Invalid Interpretation Code [facility] Work Phone: [phone] Aspartate aminotransferase (AST) 14 U/L Invalid Interpretation Code [facility] Work Phone: [phone] Chloride 110 mmol/L Invalid Interpretation Code [facility] Work Phone: [phone] Cholesterol 148 mg/dL Invalid Interpretation Code [employer] Work Phone: [phone] CO2 26.0 mmol/L Invalid Interpretation Code [facility] Work Phone: [phone] Creatinine 0.79 mg/dL Invalid Interpretation Code [facility] Work Phone: [phone] HDL Cholesterol 55 mg/dL Invalid Interpretation Code [facility] [employer] Work Phone: [phone] Hematocrit (HCT) 45.0 % Invalid Interpretation Code [facility] Work Phone: [phone] Hemoglobin (HGB) 15.0 g/dL Invalid Interpretation Code [facility] Work Phone: [phone] LDL Cholesterol 84 mg/dL Invalid Interpretation Code [facility] Work Phone: [phone] Platelets 190 10*3/mm3 Invalid Interpretation Code [facility] Work Phone: [phone] Potassium 4.3 mmol/L Invalid Interpretation Code [facility] Work Phone: [phone] Sodium 143 mmol/L Invalid Interpretation Code [facility] Work Phone: [phone] Triglyceride 47 mg/dL Invalid Interpretation Code [facility] Work Phone: [phone] Urea nitrogen 18 mg/dL Invalid Interpretation Code [facility] Work Phone: [phone] very low density lipoproteins 9 mg/dL Invalid Interpretation Code [facility] Work Phone: [phone] WBC (Leukocytes) 3.6 10*3/uL Invalid Interpretation Code [facility] Work Phone: [phone] Office Visiton 07-30-2014 cardiac risk group A Invalid Interpretation Code [facility] Work Phone: [phone] General cardiovascular disease 10Y risk [#] Miguel'Agokeith Not enough information Invalid Interpretation Code [facility] Work Phone: [phone] Lab Report: BMPon 05-13-2014 Anion gap 6 mmol/L Normal 5-15 [facility] Work Phone: [phone] BUN/Creatinine Ratio 24.3 RATIO High 10-20 [facility] [employer] Work Phone: [phone] Calcium 8.7 mg/dL Normal 8.5-10.1 [facility] Work Phone: [phone] eGFR (non-black) 118 mL/min/{1.73_m2} Normal >60 [facility] Work Phone: [phone] eGFR (non-black) 97 mL/min/{1.73_m2} Normal >60 [facility] [employer] Work Phone: [phone] Glucose 87 mg/dL Normal 70-110 [facility] Work Phone: [phone] Lab Report: CBCon 01-14-2014 Erythrocytes (RBC) 5.03 10*6/uL Normal 4.2-5.4 [facility] Work Phone: [phone] MCH 29.2 pg Normal 27.0-32.0 [facility] Work Phone: [phone] MCHC 34.7 G/GL Normal 32-36 [facility] Work Phone: [phone] MCV 84.3 fL Normal 81-99 [facility] Work Phone: [phone] PMV by Ayanna 9.3 fL Normal 6.2-12.0 [facility] Work Phone: [phone] External Other: Preferred Me thod of Contacton 01-08-2014 Patient's prefered method of contact secmsg Invalid Interpretation Code [facility] Work Phone: [phone] Vital Signs Date Time Vital Sign Value Performing Clinician Irai ramandeep 03-20-2022 15:51-0400 Body height 162.[address] Marcus Bolden Work Phone: [facility] Work Phone: 03-20-2022 15:51-0400 Body mass index (BMI) [Ratio] 35.3 kg/m2 Dr. Marcus Bolden Work Phone: [facility] Work Phone: 03-20-2022 15:51-0400 Body weight 93.[address] Marcus Bolden Work Phone: [facility] Work Phone: 03-20-2022 15:51-0400 Diastolic blood pressure 60 mm[Hg] Dr. Marcus Bolden Work Phone: [facility] Work Phone: 03-20-2022 15:51-0400 Heart rate 60 /min Dr. Marcus Bolden Work Phone: [facility] Work Phone: 03-20-2022 15:51-0400 Respiratory rate 16 /min Dr. Marcus Bolden Work Phone: [facility] Work Phone: 03-20-2022 15:51-0400 Systolic blood pressure 120 mm[Hg] Dr. Marcus Bolden Work Phone: [facility] Work Phone: 02-19-2017 13:13-0400 BMI (Body Mass Index) 33.3 kg/m2 [facility] Work Phone: 02-19-2017 13:13-0400 BP Diastolic 64 mm[Hg] [facility] Work Phone: 02-19-2017 13:13-0400 BP Systolic 110 mm[Hg] [facility] Work Phone: 02-19-2017 13:13-0400 Height 162.56 cm [facility] Work Phone: 02-19-2017 13:13-0400 Pulse (Heart Rate) 64 /min [facility] Merino [facility] Work Phone: 02-19-2017 13:13-0400 Respiratory Rate 16 /min [facility] Work Phone: 02-19-2017 13:13-0400 Weight 88 kg [facility] Work Phone: 02-21-2016 15:00-0400 BSA (Body Surface Area) 1.84 m2 [facility] Work Phone: 01-08-2014 09:54-0400 Height 162.56 cm [facility] Work Phone: Encounters Encounter Date Encounter Type Care Provider Facility Start: 11-24-2024 End: 11-24-2024 ambulatory Kyle Bolden Facility:[facility] Start: 09-22-2024 End: 09-22-[address] Kyle Bolden MD Work Phone: [facility] Work Phone: Start: 09-22-2024 End: 09-22-[address] Kyle Bolden MD -Laboratory Work Phone: Start: 09-22-2024 End: 09-22-2024 ambulatory Kyle Bolden Facility:[facility] Start: 07-01-2024 End: 07-01-[address] Kyle Bolden MD -Laboratory Work Phone: Start: 07-01-2024 End: 07-01-2024 ambulatory Kyle Bolden Facility:[facility] Start: 05-20-2024 End: 05-20-2024 ambulatory Kyle Bolden Facility:[facility] Start: 04-29-2024 End: 04-29-2024 ambulatory Whit Lindo TINSMITH APPRENTICE Facility:[facility] Start: 03-31-2024 End: 04-01-2024 ambulatory Whit Lindo TINSMITH APPRENTICE Facility:[facility] Start: 01-02-2024 [facility]ity:[facility] Start: 04-27-2023 End: 04-27-2023 ambulatory [facility] Work Phone: Start: 04-27-2023 End: 04-27-2023 Patient encounter procedure [facility]-Outpatient Breast Imaging Work Phone: Start: 12-19-2022 End: 12-19-2022 ambulatory [facility] Work Phone: Start: 12-19-2022 End: 12-19-2022 Patient encounter procedure [facility] Start: 12-14-2022 Registered Referred [facility] Start: 04-24-2022 End: 04-24-[address] Marcus Bolden Work Phone: [facility] Work Phone: Start: 04-24-2022 End: 04-24-[address] Marcus Bolden Work Phone: [facility]-Outpatient Pavilion Ultrasound Start: 04-17-2022 End: 04-17-[address] Marcus Bolden Work Phone: [facility] Work Phone: Start: 04-17-2022 End: 04-17-[address] Marcus Bolden Work Phone: [facility]-Outpatient Breast Imaging Start: 03-20-2022 End: 03-20-[address] Marcus Bolden Work Phone: [facility] Start: 01-30-2022 End: 01-30-[address] Marcus Bolden Work Phone: [facility] Procedures Date Procedure Procedure Detail Performing Clinician Start: 04-27-2023 Screening mammography Start: 12-19-2022 Plain chest X-ray Start: 04-24-[address] Marcus Bolden Work Phone: Start: 04-17-2022 Screening mammography Jonathan Bolden Work Phone: Start: 02-19-2017 End: 02-19-2017 Follow Up Appt 1 year Scottie Castillo Start: 02-19-2017 End: 02-19-2017 PFM Scottie Melgar MD Start: 02-21-2016 End: 02-21-2016 Follow Up Appt 1 year Scottie Castillo Start: 02-21-2016 End: 02-21-2016 PFAure Melgar MD Start: 02-22-2015 End: 02-23-2015 Documentation of current medications Scottie Melgar MD Start: 02-22-2015 End: 02-22-2015 Follow Up Appt 1 year Scottie Castillo Start: 02-22-2015 End: 02-22-2015 PFM Scottie Melgar MD Start: 07-30-2014 End: 07-31-2014 Documentation of current medications Scottie Melgar MD Start: 07-30-2014 End: 02-01-2017 Follow Up Appt 6 months Scottie Melgar MD Start: 07-30-2014 End: 02-01-2017 PFM Scottie Melgar MD Start: 04-29-2014 End: 05-13-2014 *BMP Scottie Melgar MD Start: 04-29-2014 End: 04-29-2014 Follow Up Appt 3 months Scottie Melgar MD Start: 04-29-2014 End: 04-29-2014 PFM Scottie Melgar MD Start: 01-29-2014 End: 01-29-2014 Follow Up Appt Other Scottie Melgar MD Start: 01-29-2014 End: 01-29-2014 PFM Scottie Melgar MD Start: 01-08-2014 End: 02-01-2017 Echocardiography Scottie Melgar MD Start: 01-08-2014 End: 02-01-2017 Electrocardiogram, complete Scottie donohue MD Start: 01-08-2014 End: 02-01-2017 Follow Up Appt 3 months Scottie Melgar MD Start: 01-08-2014 End: 02-01-2017 Follow Up Appt Other Scottie Melgar MD Start: 01-08-2014 End: 02-01-2017 PFM Scottie Melgar MD Start: 01-08-2014 End: 02-01-2017 Remote 30 day ecg rev/report Scottie caballero MD Start: 01-08-2014 End: 02-01-2017 Tilt table evaluation Scottie Castillo Plan of Treatment Date Care Activity Detail Author Start: 12-19-2022 [facility] Start: 02-20-2018 End: 02-20-2018 Appointment Appointment [facility] Work Phone: Start: 02-19-2017 End: 02-19-2017 Appointment Appointment [facility] Work Phone: Start: 02-19-2017 End: 02-19-2017 Follow Up Appt 1 year Follow Up Appt 1 year [facility] Work Phone: Start: 02-19-2017 End: 02-19-2017 PFM PFM [facility] Work Phone: Start: 02-21-2016 End: 02-21-2016 Follow Up Appt 1 year Follow Up Appt 1 year [facility] Work Phone: Start: 02-21-2016 End: 02-21-2016 PFM PFM [facility] Work Phone: Start: 02-22-2015 End: 02-22-2015 Follow Up Appt 1 year Follow Up Appt 1 year [facility] Work Phone: Start: 02-22-2015 End: 02-22-2015 PFM PFM [facility] Work Phone: Start: 07-30-2014 End: 02-01-2017 Follow Up Appt 6 months Follow Up Appt 6 months [facility] Work Phone: Start: 07-30-2014 End: 02-01-2017 PFM PFM [facility] Work Phone: Start: 04-29-2014 End: 05-13-2014 *BMP *BMP [facility] Work Phone: Start: 04-29-2014 End: 04-29-2014 Follow Up Appt 3 months Follow Up Appt 3 months [facility] Work Phone: Start: 04-29-2014 End: 04-29-2014 PFM PFM [facility] Work Phone: Start: 01-29-2014 End: 01-29-2014 Follow Up Appt Other Follow Up Appt Other [facility] Work Phone: Start: 01-29-2014 End: 01-29-2014 PFM PFM [facility] Work Phone: Start: 01-08-2014 End: 01-08-2014 Echocardiography Echocardiogram (complete) [facility] Work Phone: Start: 01-08-2014 End: 02-01-2017 Electrocardiogram, complete EKG (In office) [facility] Work Phone: Start: 01-08-2014 End: 02-01-2017 Follow Up Appt 3 months Follow Up Appt 3 months [facility] Work Phone: Start: 01-08-2014 End: 02-01-2017 Follow Up Appt Other Follow Up Appt Other [facility] Work Phone: Start: 01-08-2014 End: 02-01-2017 PFM PF [facility] Work Phone: Start: 01-08-2014 End: 01-08-2014 Remote 30 day ecg rev/report 30 Day Holter Monitor [facility] Work Phone: Start: 01-08-2014 End: 01-08-2014 Tilt table evaluation Tilt Table Test [facility] Work Phone: Erythropoietin (EPO) [Units/volume] in Serum or Plasma [facility] JAK2 gene [id number] [Presence] in Blood or Tissue by Molecular genetics method [facility] Immunizations Immunization Date Immunization Notes Care Provider [facility] 05-07-2024 influenza, seasonal, injectable, preservative free Dr. Kyle Bolden MD Work Phone: [facility] 05-03-2023 influenza, injectabl e, quadrivalent, preservative free Dr. Kyle Bolden MD Work Phone: [facility] 04-26-2022 influenza, injectabl e, quadrivalent, preservative free [facility] 04-26-2022 influenza, seasonal, injectable Dr. Marcus Bolden Work Phone: [facility] 05-03-2021 influenza, injectabl e, quadrivalent, preservative free [facility] 05-03-2021 influenza, seasonal, injectable Dr. Marcus Bolden Work Phone: [facility] 08-17-2020 Covid (Moderna) Dr. Noelle Bolden Work Phone: [facility] 07-20-2020 Covid (Moderna) Dr. Noelle Bolden Work Phone: [facility] 04-14-2020 influenza, injectabl e, quadrivalent, preservative free [facility] 04-14-2020 influenza, seasonal, injectable Dr. Marcus Bolden Work Phone: [facility] 04-29-2019 influenza, injectabl e, quadrivalent, preservative free [facility] 04-29-2019 influenza, seasonal, injectable Dr. Marcus Bolden Work Phone: [facility] 04-22-2018 influenza, injectabl e, quadrivalent, preservative free [facility] 04-22-2018 influenza, seasonal, injectable Dr. Marcus Bolden Work Phone: [facility] 04-04-2017 influenza, injectabl e, quadrivalent, preservative free [facility] 04-04-2017 influenza, seasonal, injectable Dr. Marcus Bolden Work Phone: [facility] 04-24-2016 influenza, injectabl e, quadrivalent, preservative free [facility] 04-24-2016 influenza, seasonal, injectable Dr. Marcus Bolden Work Phone: [facility] 05-24-2015 influenza, injectabl e, quadrivalent, preservative free [facility] 05-24-2015 influenza, seasonal, injectable Dr. Marcus Bolden Work Phone: [facility] 04-08-2014 influenza, injectabl e, quadrivalent, preservative free [facility] 04-08-2014 influenza, seasonal, injectable Dr. Marcus Bolden Work Phone: [facility] 07-17-[address] Marcus Bolden Work Phone: [facility] Payers Date Payer Category Payer Self-pay [id number] 2023 Unknown [id number] 2013 Unknown [id number] Unknown [id number] 2.16.8 [id number] Unknown [id number] 2.16.8 [id number] Unknown [id number] 2.16.8 [id number] Unknown [id number] 2.16.8 [id number] Unknown [id number] 2.16.8 [id number] Unknown [id number] 2.16.8 [id number] Unknown [id number] 2.16.8 [id number] Unknown [id number] 2.16.8 [id number] Social History Date Type Detail Facility Start: [facility] Start: 1970 Sex Assigned At Female [facility] Start: 03-31-2024 Tobacco smoking stat [facility] Never smoked tobacco (finding) [facility] Start: 09-27-2024 Sex Female (finding) [facility] Chief complaint+Reason for visit Narrative Note Date & Type Note Facility Chief complaint+Reason for visit Narrative Reason for Visit Nonrheumatic mitral (valve) prolapse Premature atrial contractions Premature ventricular contraction Syncope, vasovagal [facility] Work Phone: Chief complaint+Reason for visit Narrative Note Date & Type Note Facility Chief complaint+Reason for visit Narrative Reason for Visit Nonrheumatic mitral (valve) prolapse Premature atrial contractions Premature ventricular contraction Syncope, vasovagal [facility] Work Phone: Evaluation note Note Date & Type Note Facility Evaluation note Diagnosis Onset Date Nonrheumatic mitral (valve) prolapse acute Premature atrial contractions acute Premature ventricular contraction acute Syncope, vasovagal acute [facility] Work Phone: Evaluation note Note Date & Type Note Facility Evaluation note No assessment information availa ble [facility] Work Phone: Reason for referral (narrative) Note Date & Type Note Facility Reason for referral (narrative) No reason for referral information available [facility] Work Phone: Family History No Family History Records Found Relationship Condition Age at Onset Recorded Date/T aleksander mother Hypertension Unknown Diabetes mellitus Unknown brother Diabetes mellitus Unknown Relationship Condition Age at Onset Recorded Date/T aleksander mother Hypertension Unknown Diabetes mellitus Unknown brother Diabetes mellitus Unknown father Parkinson's disease Unknown grandmother Malignant neoplasm of breast Unknown grandfather Cardiac disease Unknown Advance Directives No Advanced Directives Records Found Advance Directive Response Recorded Date/ Time Living Will No January 05, 2021 2:00pm Power of Automatic 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 Marcus Bolden MD Family Provider Active Dr. Marcus Bolden MD Primary Care Provider Activ e Team Status: Active Member Role Status Dates Dr. Marcus Bolden MD Primary Care Provider Activ e Health Risk Assessment Attending Provider, Referring P jonel Active Team Status: Inactive Member Role Status Dates Dr. Marcus Bolden MD Primary Care Provider, Attending Provider, Referring Provider Active Team Status: Active Member Role Status Dates Dr. Kyle Bolden MD Family Provider Active Dr. Kyle Bolden MD Primary Care Provider Acti ve Team Status: Inactive Member Role Status Dates Dr. Kyle Bolden MD Primary Care Provider Acti ve Start: July 01, 2024 End: July 01, 2024 Dr. Kyle Bolden MD Attending Provider Active Start: July 01, 2024 End: July 01, 2024 Dr. Kyle Bolden MD Referring Provider Active Start: July 01, 2024 End: July 01, 2024 Team Status: Inactive Member Role Status Dates Dr. Kyle Bolden MD Primary Care Provider Acti ve Start: September 22, 2024 End: September 22, 2024 Dr. Kyle Bolden MD Attending Provider Active Start: September 22, 2024 End: September 22, 2024 Dr. Kyle Bolden MD Referring Provider Active Start: September 22, 2024 End: September 22, 2024 INFORMATION SOURCE (unrecogn ized section and content) DATE CREATED AUTHOR 12/04/2024 [facility] FOR RECORDS PERTAINING TO PATIENTS WHO ARE OR HAVE BEEN ENROLLED IN A CHEMICAL DEPENDENCY/SUBSTANCEABUSE PROGRAM, SOME INFORMATION MAY BE OMITTED. This clinical summary was aggregated from multiple sources. Caution should be exercised in using it in the provision of clinical care. This summary normalizes information from multiple sources, and as a consequence, information in this document may materially change the coding, format and clinical context of patient data. In addition, data may be omitted in some cases. CLINICAL DECISIONS SHOULD BE BASED ON THE PRIMARY CLINICAL RECORDS. [employer] [facility]. provides no warranty or guarantee of the accuracy or completeness of information in this document.
--- OUTSIDE RECORDS SUMMARY | 2025-01-20 06:07 | XMS RPT_ITS | CCD ---
Author Organization [facility] Care Team Providers Care Gun Examiner Name Role Phone Dirk Merino Unavailable Unavailable Dirk Merino Unavailable Unavailable Dr. Marcus Bolden Primary Care Provider Dr. Marcus Bolden Referring Provider МАРИНА Raymond Attending Provider Dr. Scottie Melgar Attending Provider Dr. Kyle Bolden MD Primary Care Provider Dr. Kyle Bolden MD Attending Provider Dr. Kyle Bolden MD Referring Provider 1( [phone] Kyle Bolden Attending Unavailable Kyle Bolden Referring Unavailable Kyle Bolden Primary Care Unavailable Kyle Bolden Attending Unavailable Kyle Bolden Referring Unavailable Kyle Bolden Primary Care Unavailable Kyle Bolden Referring Unavailable [employer]ATE WEBMASTER, Whit Attending Unavailable Kyle Bolden Primary Care Unavailable [employer] WEBMASTER, Whit Attending Unavailable [employer] WEBMASTER Whit Referring Unavailable Kyle Bolden Primary Care Unavailable [employer] WEBMASTER, Whit Attending Unavailable [employer] WEBMASTER Whit Referring Unavailable Kyle Bolden Primary Care [...] sources) acetaminophen / traMADol drug allergy [address] [facility] Work Phone: (4 sources) erythromycin drug allergy [address] [facility] Work Phone: (5 sources) traMADol Drug Allergy 2 felt as if she was going to pass out [facility] (1 source) traMADol Drug Allergy 4 [facility] Repository Medications Current Medications Medication Drug Class(es) [...] Pr opionate (Flonase Allergy Relief) 50 mcg/actuation [place],Suspension Active 1 NMA INTRANASAL DAILY as needed for Nasal Congestion January 05, 2021 12:00am Start: 01-05-2021 Fluticasone Pr opionate (Flonase Allergy Relief) 50 mcg/actuation [place],Suspension Active 1 SPRAY INTRANASAL DAILY January 05, [...] One tablet by mouth daily FLUDROCORTISONE ACETATE [id number] Scottie Melgar MD methylPREDNISolone 4 mg oral [...] THYR PEROX AB 118 IU/mL High 0-34 [facility] Comment on above: Result Comment: Perf ormed at: CB - [facility] [address] [id number] Unit Director: Feliberto Gregory PhD, Phone: [phone] Performed By: #### L [id number] #### [facility] [address] [place], [place], [id number] T4 Free Directon 11-24-2024 T4 FREE DIRECT 1.50 ng/dL High 0.76-1.46 [facility] Comment on above: Order Comment: Order Date: 09/23/24 Order Info: 3016-3 - TSH Order Info: 3024-7 - T4F Performed By: #### L [id number], L506.0400 #### [facility] [address] [facility] [place], [place], [id number] Thyroid Stim Hormone (TSH)on 11-24-2024 TSH 0.006 uIU/mL Low 0.300-4.200 [facility] Comment on above: Order Comment: Order Date: 09/23/24 Order Info: 3016-3 - TSH Order Info: 3024-7 - T4F Performed By: #### L [id number], [id number] #### [facility] [address] [facility] [place], [place], [address] T4 Free Directon 09-22-2024 T4 FREE DIRECT 2.10 ng/dL High 0.76-1.46 [facility] Comment on above: Order Comment: Order Date: 07/22/24 Order Info: 3016-3 - TSH Order Info: 3024-7 - T4F Performed By: #### L [id number], [id number] #### [facility] [address] [facility] [place], [place], [address] T4 freeOrdered By: Adrian Bolden on 09-22-2024 Free T4 [Mass/Vol] 2.10 ng/dL High 0.76-1.46 [facility] TSH DL <= 0.005 mIU/L QnOrde red By: Kyle Bolden on 09-22-2024 Thyroid Stimulating Hormone (TSH) 0.017 uIU/mL Low 0.300-4.200 [facility] Thyroid Stim Hormone (TSH)on 09-22-2024 TSH 0.017 uIU/mL Low 0.300-4.200 [facility] Comment on above: Order Comment: Order Date: 07/22/24 Order Info: 3016-3 - TSH Order Info: 3024-7 - T4F Performed By: #### L [id number], [id number] #### [facility] [address] [place], [place], [address] Direct serum free thyroxine (FT4) measurementOrdered By: Kyle Bolden on 07-01-2024 Free T4 [Mass/Vol] 1.09 ng/dL 0.76-1.46 [facility] T4 Free Directon 07-01-2024 T4 FREE DIRECT 1.09 ng/dL Normal 0.76-1.46 [facility] Comment on above: Order Comment: Order Date: 06/30/24 Order Info: 3016-3 - TSH Order Info: 302-7 - T4F Performed By: #### L 506.0400 #### [facility] [address] [facility]. [place], [place], [address] TSH QnOrdered By: Marcus Bolden on 07-01-2024 Thyroid Stimulating Hormone (TSH) 0.449 uIU/mL 0.358-3.740 [facility] Thyroid Stim Hormone (TSH)on 07-01-2024 TSH 0.449 uIU/mL Normal 0.358-3.740 [facility] Comment on above: Order Comment: Order Date: 06/30/24 Order Info: 3016-3 - TSH Order Info: 3024-7 - T4F Performed By: #### L [id number] #### [facility] [address] [place], [place], [address] Free T3on 05-20-2024 Free T3 [Mass/Vol] 3.0 pg/mL Normal 2.18-3.98 [facility] Comment on above: Order Comment: Order Date: 07/22/24 Order Info: 3016-3 - TSH Order Info: 3024-7 - T4F Performed By: #### L [id number], L506.0400 #### [facility] [address] [place], [address] T4 Free Directon 05-20-2024 T4 FREE DIRECT 1.48 ng/dL High 0.76-1.46 [facility] Comment on above: Order Comment: Order Date: 07/22/24 Order Info: 3016-3 - TSH Order Info: 302-7 - T4F Performed By: #### L [id number], [id number] #### [facility] [address] [place], [address] Thyroid Stim Hormone (TSH)on 05-20-2024 TSH 0.086 uIU/mL Low 0.358-3.740 [facility] Comment on above: Order Comment: Order Date: 07/22/24 Order Info: 3016-3 - TSH Order Info: 3024-7 - T4F Performed By: #### L [id number], [id number] #### [facility] [address] [place], [address] SCRN MAMM (CAD)W/ROCAEL BILATo n 04-29-2024 SCRN MAMM (CAD)W/ROCAEL BILAT [facility] Imaging Services [address] [place] [address] SCRN MAMM (CAD)W/ROCAEL BILAT MR#: [id number] Acct: [id number] Name: JANICE SO Rep #: [id number] : 1970 F 53 From: You silverio MD PCP: Dr. yKle Bolden MD Status: REG CL Study: SCRN MAMM (CAD)W/ROCAEL BILAT Date of Exam: 04/09 09/01 Exam# [id number] Ordering Dr: Whit Lindo NP, NP -[id number] MAMMOGRAPHY - BILATERAL SCREENING REASON FOR [...] delay biopsy of a clinically suspicious abnormality. [id number] Electronically Signed: You Adkins MD at 10:09 EDT , CC: RAY Lindo; Dr. Kyle Bolden MD Supervisor Packing: Signed Normal [facility] Thyroid Peroxidase ABon - THYR PEROX AB 120 IU/mL High 0-34 [facility] Comment on above: Result Comment: Perf ormed at: [facility] [address] [id number] Unit Director: Feliberto Gregory PhD, Phone: [phone] Performed By: #### L [id number], [id number] #### [facility] [address] [place], [address] T4 Free Directon 04-01-2024 T4 FREE DIRECT 0.72 ng/dL Low 0.76-1.46 [facility] Comment on above: Performed By: #### L [id number], [id number] #### [facility] [address] [place], [address] Thyroid Stim Hormone (TSH)on 04-01-2024 TSH 9.540 uIU/mL High 0.358-3.740 [facility] Comment on above: Performed By: #### L [id number], L506.0400 #### [facility] [address] [place], [address] Vitamin D,25 Hydroxyon 04-01 Vitamin D 25-OH 23.8 ng/mL Normal [facility] Comment on above: Result Comment: Nani min D 25(OH) Status Range Deficiency <20 ng/mL (50nmol/L) Insufficiency 20 - 30 ng/mL (50 - 75 nmol/L) Sufficiency 30 - 100 ng/mL (75 - 250 nmol/L) Toxicity >100 ng/mL (>250 nmol/L) Performed By: #### L [id number], L506.0400 #### [facility] [address] 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 Normal [facility] CBC, Employeeon 01-02-2024 Absolute Lymph 1.35 X10 3/uL Normal 0.83-4.51 [facility] Comment on above: Performed By: #### L 100.0200, L400.0100, L500.2900 #### [facility] [address] [place], [address] Absolute Neut 2.7 X10 3/uL Normal 2.0-7.7 [facility] Comment on above: Performed By: #### L 100.0200, L400.0100, L500.2900 #### [facility] [address] [place], [address] Basophils/100 WBC (Bld) 1.1 % High 0-1 [facility] Comment on above: Performed By: #### L 100.0200, L400.0100, L500.2900 #### [facility] [address] [place], [address] Eosinophils/100 WBC (Bld) 4.3 % Normal 0-5 [facility] Comment on above: Performed By: #### L 100.0200, L400.0100, L500.2900 #### [facility] [address] [place], [address] Erythrocyte distribution width (RBC) [Ratio] 12.2 % Normal 11.6-14.6 [facility] Comment on above: Performed By: #### L 100.0200, L400.0100, L500.2900 #### [facility] [address] [place], [address] Hematocrit (Bld) [Volume fraction] 46.5 % Normal 37-47 [facility] Comment on above: Performed By: #### L 100.0200, L400.0100, L500.2900 #### [facility] [address] [place], [address] Hemoglobin (Bld) [Mass/Vol] 15.5 g/dL High 12.0-15.0 [facility] Comment on above: Performed By: #### L 100.0200, L400.0100, L500.2900 #### [facility] [address] [place], [address] Lymphocytes/100 WBC (Bld) 29.1 % Normal 19-41 [facility] Comment on above: Performed By: #### L 100.0200, L400.0100, L500.2900 #### [facility] [address] [place], [address] MCH (RBC) [Entitic mass] 28.3 pg Normal 27.0-32.0 [facility] Comment on above: Performed By: #### L 100.0200, L400.0100, L500.2900 #### [facility] [address] [place], [address] MCHC (RBC) [Mass/Vol] 33.3 g/dL Normal 32-36 [facility] Comment on above: Performed By: #### L 100.0200, L400.0100, L500.2900 #### [facility] [address] [place], [address] MCV (RBC) [Entitic vol] 84.9 fL Normal 81-99 [facility] Comment on above: Performed By: #### L 100.0200, L400.0100, L500.2900 #### [facility] [address] [place], [address] Monocytes/100 WBC (Bld) 7.8 % Normal 0-10 [facility] Comment on above: Performed By: #### L 100.0200, L400.0100, L500.2900 #### [facility] [address] [place], [address] Neutrophils/100 WBC (Bld) 57.5 % Normal 47-70 [facility] Comment on above: Performed By: #### L 100.0200, L400.0100, L500.2900 #### [facility] [address] [place], [address] NRBC # 0.00 10 3/uL Normal 0-5 [facility] Comment on above: Performed By: #### L 100.0200, L400.0100, L500.2900 #### [facility] [address] [place], [address] Nucleated RBC (Bld) [#/Vol] 0 10*3/uL Normal 0-5 [facility] Comment on above: Performed By: #### L 100.0200, L400.0100, L500.2900 #### [facility] [address] [place], [address] Platelet mean volume (Bld) [Entitic vol] 9.5 fL Normal 6.2-12.0 [facility] Comment on above: Performed By: #### L 100.0200, L400.0100, L500.2900 #### [facility] [address] [place], [address] Platelets (Bld) [#/Vol] 255 10*3/uL Normal 150-450 [facility] Comment on above: Performed By: #### L 100.0200, L400.0100, L500.2900 #### [facility] [address] [place], [address] RBC (Bld) [#/Vol] 5.48 10*6/uL High 4.2-5.4 [facility] Comment on above: Performed By: #### L 100.0200, L400.0100, L500.2900 #### [facility] [address] [place], [address] RDW SD 37.5 fl Normal 35.1-43.9 [facility] Comment on above: Performed By: #### L 100.0200, L400.0100, L500.2900 #### [facility] [address] [place], [address] WBC (Bld) [#/Vol] 4.6 10*3/uL Normal 4.4-11.0 [facility] Comment on above: Performed By: #### L 100.0200, L400.0100, L500.2900 #### [facility] [address] [place], [address] Employee Profileon 4 Albumin [Mass/Vol] 3.6 g/dL Normal 3.2-5.0 [facility] Comment on above: Performed By: #### L 501.9520, L506.0400 #### [facility] [address] [place], [address] Albumin/Globulin [Mass ratio] 1.1 {ratio} Normal 0.9-2.4 [facility] Comment on above: Performed By: #### L 501.9520, L506.0400 #### [facility] [address] [place], [address] ALK P 54 U/L Normal 45-117 [facility] Comment on above: Performed By: #### L 501.9520, L506.0400 #### [facility] [address] [place], [address] ALT [Catalytic activity/Vol] 28 U/L Normal 13-56 [facility] Comment on above: Performed By: #### L 501.9520, L506.0400 #### [facility] [address] [place], [address] AST [Catalytic activity/Vol] 43 U/L High 15-37 [facility] Comment on above: Performed By: #### L 501.9520, L506.0400 #### [facility] [address] [place], [address] Bilirubin [Mass/Vol] 0.60 mg/dL Normal 0.20-1.[address] [facility] Comment on above: Result Comment: For patients on eltrombopag therapy, use of Dimension [place] TBIL is not recommended. Performed By: #### L 501.9520, L506.0400 #### [facility] [address] [place], [address] Bilirubin.direct [Mass/Vol] 0.16 mg/dL Normal 0.00-0.30 [facility] Comment on above: Performed By: #### L 501.9520, L506.0400 #### [facility] [address] [place], [address] BUN/CRE 23.0 RATIO High 10-20 [facility] Comment on above: Performed By: #### L 501.9520, L506.0400 #### [facility] [address] [place], [address] CA,Total 9.2 mg/dL Normal 8.5-10.1 [facility] Comment on above: Performed By: #### L 501.9520, L506.0400 #### [facility] [address] [place], [address] Chloride [Moles/Vol] 106 mmol/L Normal 98-[address] [facility] Comment on above: Performed By: #### L 501.9520, L506.0400 #### [facility] [address] [place], [address] CHOL:HDL 3.50 Normal [facility] Comment on above: Performed By: #### L 501.9520, L506.0400 #### [facility] [address] [place], [address] Cholesterol [Mass/Vol] 187 mg/dL Normal 200 [facility] Comment on above: Result Comment: <200 mg/dL Desirable 200-240 mg/dL Borderline >240 mg/dL High Risk Performed By: #### L 501.9520, L506.0400 #### [facility] [address] [place], [address] Cholesterol in HDL [Mass/Vol] 53 mg/dL Normal [facility] Comment on above: Result Comment: The drugs N-Acetylcysteine and Metamizole may falsely depress this assay. Reference Range HDL <40 mg/dL Low HDL Cholesterol HDL >or= 60 mg/dL High HDL Cholesterol Performed By: #### L 501.9520, L506.0400 #### [facility] [address] [place], [address] Cholesterol in LDL [Mass/Vol] 113 mg/dL Normal 0-130 [facility] Comment on above: Performed By: #### L 501.9520, L506.0400 #### [facility] [address] [place], [address] Cholesterol in VLDL [Mass/Vol] 21 mg/dL Normal 5-40 [facility] Comment on above: Performed By: #### L 501.9520, L506.0400 #### [facility] [address] [place], [address] CO2 [Moles/Vol] 27.0 mmol/L Normal 21.0-32.0 [facility] Comment on above: Performed By: #### L 501.9520, L506.0400 #### [facility] [address] [place], [address] Creatinine [Mass/Vol] 0.78 mg/dL Normal 0.55-1.02 [facility] Comment on above: Result Comment: The validity of the calculated GFR GFRAA in patients over 70 years has not been determined. Clinical correlation is essential. Performed By: #### L 501.9520, L506.0400 #### [facility] [address] [place], [address] EST GFR - AA 99 mL/min Normal >60 [facility] Comment on above: Result Comment: Afri can Jordanian GFR Calc Performed By: #### L 501.9520, L506.0400 #### [facility] [address] [place], [address] GAP 5 Normal 5-15 [facility] Comment on above: Performed By: #### L 501.9520, L506.0400 #### [facility] [address] [place], [address] GFR/1.73 sq M.predicted among non-blacks MDRD (S/P/Bld) [Vol rate/Area] 82 mL/min/{1.73_m2} Normal >60 [facility] Comment on above: Result Comment: Non- GFR Calc Performed By: #### L 501.9520, L506.0400 #### [facility] [address] [place], [address] Globulin (S) [Mass/Vol] 3.3 g/dL Normal 2.2-4.2 [facility] Comment on above: Performed By: #### L 501.9520, L506.0400 #### [facility] [address] [place], [address] Glucose [Mass/Vol] 120 mg/dL High 74-106 [facility] Comment on above: Result Comment: Fast ing Glucose result from 100 to 125 mg/dL suggests IMPAIRED HOMEOSTASIS per A.D.A. criteria. Performed By: #### L 501.9520, L506.0400 #### [facility] [address] [place], [address] LDH 197 U/L Normal 84-246 [facility] Comment on above: Performed By: #### L 501.9520, L506.0400 #### [facility] [address] [place], [address] Phosphate [Mass/Vol] 3.1 mg/dL Normal 2.5-4.[address] [facility] Comment on above: Performed By: #### L 501.9520, L506.0400 #### [facility] [address] [place], [address] Potassium [Moles/Vol] 3.8 mmol/L Normal 3.5-5.1 [facility] Comment on above: Performed By: #### L 501.9520, L506.0400 #### [facility] [address] [place], [address] Sodium [Moles/Vol] 138 mmol/L Normal 136-145 [facility] Comment on above: Performed By: #### L 501.9520, L506.0400 #### [facility] [address] [place], [address] T PROT 6.9 g/dL Normal 6.4-8.2 [facility] Comment on above: Performed By: #### L 501.9520, L506.0400 #### [facility] [address] [place], [address] Triglyceride [Mass/Vol] 105 mg/dL Normal [facility] Comment on above: Result Comment: The drugs N-Acetylcysteine and Metamizole may falsely depress this assay. Serum Triglycerides Reference Interval Normal <150 mg/dL Borderline high 150 - 199 mg/dL High 200 - 499 mg/dL Very High > or = 500 mg/dL Performed By: #### L 501.9520, L506.0400 #### [facility] [address] [place], [address] Urea nitrogen [Mass/Vol] 18 mg/dL Normal 7-18 [facility] Comment on above: Performed By: #### L 501.9520, L506.0400 #### [facility] [address] [place], [address] URIC 3.4 mg/dL Normal 2.6-6.0 [facility] Comment on above: Result Comment: The drugs N-Acetylcysteine and Metamizole may falsely depress this assay. Performed By: #### L 501.9520, L506.0400 #### [facility] [address] [place], [address] Urinalysis, Employeeon 01-01 BILIRUBIN URINE Negative Normal Negative [facility] Comment on above: Performed By: #### L 501.9520, L506.0400 #### [facility] [address] [place], [address] Clarity (U) Clear Normal Clear [facility] Comment on above: Performed By: #### L 501.9520, L506.0400 #### [facility] [address] [place], [address] Color (U) Yellow Normal Yellow [facility] Comment on above: Performed By: #### L 501.9520, L506.0400 #### [facility] [address] [place], [address] GLUCOSE, UR Normal Normal Normal [facility] Comment on above: Performed By: #### L 501.9520, L506.0400 #### [facility] [address] [place], [address] KETONE UR Negative Normal Negative [facility] Comment on above: Performed By: #### L 501.9520, L506.0400 #### [facility] [address] [place], [address] LEUK ESTERASE Negative Normal Negative [facility] Comment on above: Performed By: #### L 501.9520, L506.0400 #### [facility] [address] [place], [address] Nitrite Ql (U) Negative Normal Negative [facility] Comment on above: Performed By: #### L 501.9520, L506.0400 #### [facility] [address] [place], [address] OCCULT BLOOD-UR Negative Normal Negative [facility] Comment on above: Performed By: #### L 501.9520, L506.0400 #### [facility] [address] [place], [address] pH UR 7.0 Normal 5.0 - 8.0 [facility] Comment on above: Performed By: #### L 501.9520, L506.0400 #### [facility] [address] [place], [address] PROT DIPSTX Negative Normal Negative [facility] Comment on above: Performed By: #### L 501.9520, L506.0400 #### [facility] [address] [place], [address] SP.GR. DIPSTX 1.010 Normal 1.002-1.030 [facility] Comment on above: Performed By: #### L 501.9520, L506.0400 #### [facility] [address] [place], [address] UROBILI Normal Normal Normal [facility] Comment on above: Performed By: #### L 501.9520, L506.0400 #### [facility] [address] [place], [address] Whole blood hemoglobin A1c/t otal hemoglobin ratio (mass fraction)Ordered By: Dr. Bolden on 12-19-2022 HbA1c (Bld) [Mass fraction] 5.6 % 3.8-5.6 [facility] Comment on above: Normal < 5.7 % Predi abetic 5.7 - 6.4 % Diabetic >or= 6.5 % Please note range changes. Absolute lymphocyte countOrd ered By: HEALTH ASSESSMENT on 12-14-2022 Lymphocytes Auto (Unsp spec) [#/Vol] 1.40 10*3/uL 0.83-4.51 [facility] Absolute reticulocyte countO rdered By: HEALTH ASSESSMENT on 12-14-2022 Reticulocytes (Bld) [#/Vol] 0.00 10*3/uL 0-5 [facility] Basophil percentageOrdered B y: HEALTH ASSESSMENT on 12-14-2022 Basophil percentage 2.9 mg/dL 2.5-4.9 [facility] Bilirubin [Mass/Vol] 0.60 mg/dL 0.20-1.[address] [facility] Comment on above: For patients on eltr ombopag therapy, use of Dimension [place] TBIL is not recommended. Chloride [Moles/Vol] 107 mmol/L 98-[address] [facility] Cholesterol [Mass/Vol] 178 mg/dL <200 [facility] Comment on above: <200 mg/dL Desirable 200-240 mg/dL Borderline >240 mg/dL High Risk Glucose [Mass/Vol] 110 mg/dL 74-106 [facility] Comment on above: Fasting Glucose resu lt from 100 to 125 mg/dL suggests IMPAIRED HOMEOSTASIS per A.D.A. criteria. LDH [Catalytic activity/Vol] 171 U/L 84-246 [facility] Neutrophils (Bld) [#/Vol] 2.1 10*3/uL 2.0-7.7 [facility] Potassium [Moles/Vol] 3.7 mmol/L 3.5-5.1 [facility] Protein [Mass/Vol] 7.1 g/dL 6.4-8.2 [facility] Sodium [Moles/Vol] 140 mmol/L 136-145 [facility] Triglyceride [Mass/Vol] 84 mg/dL <199 [facility] Comment on above: The drugs N-Acetylcy steine and Metamizole may falsely depress this assay.Serum Triglycerides Reference Interval Normal <150 mg/dL Borderline high 150 - 199 mg/dL High 200 - 499 mg/dL Very High > or = 500 mg/dL WBC (Bld) [#/Vol] 4.1 10*3/uL 4.4-11.0 [facility] Bilirubin Test strip Ql (U)O rdered By: HEALTH ASSESSMENT on 12-14-2022 Bilirubin Ql (U) Negative Negative [facility] Blood erythrocytes count (nu mber/volume)Ordered By: HEALTH ASSESSMENT on 12-14-2022 RBC (Bld) [#/Vol] 5.55 10*6/uL 4.2-5.4 [facility] Blood hemoglobin measurement (mass/volume)Ordered By: HEALTH ASSESSMENT on 12-14-2022 Hemoglobin (Bld) [Mass/Vol] 15.8 g/dL 12.0-15.0 [facility] Blood platelet mean volumeOr dered By: HEALTH ASSESSMENT on 12-14-2022 Platelet mean volume (Bld) [Entitic vol] 9.9 fL 6.2-12.0 [facility] Determination of erythrocyte mean corpuscular volume (MCV)Ordered By: HEALTH ASSESSMENT on 12-14-2022 MCV (RBC) [Entitic vol] 85.4 fL 81-99 [facility] Direct bilirubinOrdered By: HEALTH ASSESSMENT on 12-14-2022 Bilirubin.direct [Mass/Vol] 0.17 mg/dL 0.00-0.30 [facility] Hematocrit Auto (Bld) [Volum e fraction]Ordered By: HEALTH ASSESSMENT on 12-14-2022 Hematocrit (Bld) [Volume fraction] 47.4 % 37-47 [facility] Ketones Test strip Ql (U)Ord ered By: HEALTH ASSESSMENT on 12-14-2022 Ketones Ql (U) Negative Negative [facility] Laboratory - Chemistry and C hemistry - challengeOrdered By: HEALTH ASSESSMENT on 12-14-2022 ALP [Catalytic activity/Vol] 49 U/L 45-117 [facility] ALT [Catalytic activity/Vol] 17 U/L 13-56 [facility] Cholesterol.total/Choles terol in HDL [Mass ratio] 3.50 {ratio} [facility] CO2 [Moles/Vol] 29.0 mmol/L 21.0-32.0 [facility] Globulin (S) [Mass/Vol] 3.3 g/dL 2.2-4.2 [facility] Urea nitrogen/Creatinine [Mass ratio] 20.2 mg/mg 10-20 [facility] Laboratory - Hematology and Cell countsOrdered By: HEALTH ASSESSMENT on 12-14-2022 Erythrocyte distribution width (RBC) [Entitic vol] 38.5 fL 35.1-43.9 [facility] Erythrocyte distribution width (RBC) [Ratio] 12.3 % 11.6-14.6 [facility] MCH (RBC) [Entitic mass] 28.5 pg 27.0-32.0 [facility] Nucleated RBC/100 WBC (Bld) [Ratio] 0 % 0-5 [facility] MCHC Auto (RBC) [Mass/Vol]Or dered By: HEALTH ASSESSMENT on 12-14-2022 MCHC (RBC) [Mass/Vol] 33.3 g/dL 32-36 [facility] Nitrite Test strip Ql (U)Ord ered By: HEALTH ASSESSMENT on 12-14-2022 Nitrite Ql (U) Negative Negative [facility] No Panel InformationOrdered By: HEALTH ASSESSMENT on 12-14-2022 Estimated GFR (MDRD) Amer 105 mL/min >60 [facility] Comment on above: GFR Calc Estimated GFR (MDRD) Non-Af Amer 87 mL/min >60 [facility] Comment on above: Non- GFR Calc Platelets bldOrdered By: Moreno [facility] ASSESSMENT on 12-14-2022 Platelets (Bld) [#/Vol] 267 10*3/uL 150-450 [facility] Protein Test strip Ql (U)Ord ered By: HEALTH ASSESSMENT on 12-14-2022 Protein Ql (U) Negative Negative [facility] Segmented neutrophils/100 WB C Auto (Bld)Ordered By: HEALTH ASSESSMENT on 12-14-2022 Segmented neutrophils/100 WBC (Bld) 50.5 % 47-70 [facility] Serum or plasma albumin shasta urement (mass/volume)Ordered By: HEALTH ASSESSMENT on 12-14-2022 Albumin [Mass/Vol] 3.8 g/dL 3.2-5.0 [facility] Serum or plasma albumin/glob ulin mass ratioOrdered By: HEALTH ASSESSMENT on 12-14-2022 Albumin/Globulin [Mass ratio] 1.2 {ratio} 0.9-2.4 [facility] Serum or plasma calcium shasta urement (mass/volume)Ordered By: HEALTH ASSESSMENT on 12-14-2022 Calcium [Mass/Vol] 9.1 mg/dL 8.5-10.1 [facility] Serum or plasma cholesterol in HDL measurement (mass/volume)Ordered By: HEALTH ASSESSMENT on 12-14-2022 Cholesterol in HDL [Mass/Vol] 51 mg/dL >40 [facility] Comment on above: The drugs N-Acetylcy steine and Metamizole may falsely depress this assay. Reference Range HDL <40 mg/dL Low HDL Cholesterol HDL >or= 60 mg/dL High HDL Cholesterol Serum or plasma cholesterol in VLDL measurement (mass/volume)Ordered By: HEALTH ASSESSMENT on 12-14-2022 Cholesterol in VLDL [Mass/Vol] 17 mg/dL 5-40 [facility] Serum or plasma creatinine m easurement (mass/volume)Ordered By: HEALTH ASSESSMENT on 12-14-2022 Creatinine [Mass/Vol] 0.74 mg/dL 0.55-1.02 [facility] Comment on above: The validity of the calculated GFR & GFRAA in patients over 70 years has not been determined. Clinical correlation is essential. Serum or plasma low density lipoprotein (LDL) cholesterol measurement (mass/volume)Ordered By: HEALTH ASSESSMENT on 12-14-2022 Cholesterol in LDL [Mass/Vol] 110 mg/dL 0-130 [facility] Serum or plasma urea nitroge n measurement (mass/volume)Ordered By: HEALTH ASSESSMENT on 12-14-2022 Urea nitrogen [Mass/Vol] 15 mg/dL 7-18 [facility] Serum or plasma uric acid me asurement (mass/volume)Ordered By: [facility] ASSESSMENT on 12-14-2022 Urate [Mass/Vol] 3.4 mg/dL 2.6-6.0 [facility] Comment on above: The drugs N-Acetylcy steine and Metamizole may falsely depress this assay. Thin prep Papanicolaou smear with manual screeningOrdered By: HEALTH ASSESSMENT on 12-14-2022 Thin prep Papanicolaou smear with manual screening 12 U/L 15-37 [facility] Thin prep Papanicolaou smear with manual screening 4 5-15 [facility] Urine blood detectionOrdered By: HEALTH ASSESSMENT on 12-14-2022 RBC Ql (U) Negative Negative [facility] Urine clarityOrdered By: HEA LTH ASSESSMENT on 12-14-2022 Clarity (U) Sl. Cloudy Clear [facility] Urine color determinationOrd ered By: HEALTH ASSESSMENT on 12-14-2022 Color (U) Yellow Yellow [facility] Urine glucose detectionOrder ed By: HEALTH ASSESSMENT on 12-14-2022 Glucose Ql (U) Normal mg/dl Normal [facility] Urine leukocyte esterase det ection by dipstickOrdered By: HEALTH ASSESSMENT on 12-14-2022 Leukocyte esterase Test strip Ql (U) 25 /ul Negative [facility] Urine pHOrdered By: HEALTH A SSESSMENT on 12-14-2022 pH (U) 8.0 [pH] 5.0 - 8.0 [facility] Urine specific gravity measu rementOrdered By: HEALTH ASSESSMENT on 12-14-2022 Specific gravity (U) [Rel density] 1.015 1.002-1.030 [facility] Urobilinogen Auto test strip Ql (U)Ordered By: HEALTH ASSESSMENT on 12-14-2022 Urobilinogen Ql (U) Normal mg/dl Normal [facility] Laboratory - Microbiology an d Antimicrobial susceptibilityon 01-30-2022 SARS-CoV-2 (COVID-19) RNA KASSIDY+probe Ql (Unsp spec) Detected [facility] Work Phone: No Panel Informationon 01-30 POC Nasal Swab Influenza A,B Not detected [facility] Work Phone: POC Nasal Swab RSV Not detected [facility] Work Phone: Office Visiton 02-19-2017 Dietary management education, guidance, and counseling (procedure) yes Invalid Interpretation Code [facility] Work Phone: [phone] Documentation of current medications (procedure) Done Invalid Interpretation Code [facility] Work Phone: [phone] Fall risk assessment No Invalid Interpretation Code [facility] Work Phone: [phone] Tobacco use CPHS Never smoker Invalid Interpretation Code [facility] Work Phone: [phone] Replaced Document: Norma RODRIGUEZ Observationson 02-21-2016 electrocardiogram interpretation Sinus Rhythm WITHIN NORMAL LIMITS Invalid Interpretation Code [facility] Work Phone: [phone] GE use only - for [employer] import when terms are not otherwise specified 424 ms Invalid Interpretation Code [facility] Work Phone: [phone] P wave axis, electrocardiogram 33 deg Invalid Interpretation Code [facility] Work Phone: [phone] HI interval, electrocardiogram 158 ms Invalid Interpretation Code [facility] Work Phone: [phone] Pulse (Heart Rate) 66 /min Invalid Interpretation Code [facility] Work Phone: [phone] QRS axis, electrocardiogram 52 deg Invalid Interpretation Code [facility] Work Phone: [phone] QRS duration, electrocardiogram 92 ms Invalid Interpretation Code [facility] Work Phone: [phone] QT interval, electrocardiogram new path ms Invalid Interpretation Code [facility] Work Phone: [phone] T wave axis, electrocardiogram 31 deg Invalid Interpretation Code [facility] Work Phone: [phone] Clinical Lists Updateon 02-06 Left ventricular Ejection fraction 60 % Invalid Interpretation Code [facility] Phone: [phone] Clinical Lists Updateon 07-10 Alanine aminotransferase (ALT) 16 U/L Invalid Interpretation Code [facility] Phone: [phone] Alkaline phosphatase (ALP) 32 U/L Invalid Interpretation Code [facility] Work Phone: [phone] Aspartate aminotransferase (AST) 14 U/L Invalid Interpretation Code [facility] Work Phone: [phone] Chloride 110 mmol/L Invalid Interpretation Code [facility] Work Phone: [phone] Cholesterol 148 mg/dL Invalid Interpretation Code [facility] Work Phone: [phone] CO2 26.0 mmol/L Invalid Interpretation Code [facility] Work Phone: [phone] Creatinine 0.79 mg/dL Invalid Interpretation Code [facility] Work Phone: [phone] HDL Cholesterol 55 mg/dL Invalid Interpretation Code [facility] Work Phone: [phone] Hematocrit (HCT) 45.0 % Invalid Interpretation Code [facility] Work Phone: [phone] Hemoglobin (HGB) 15.0 g/dL Invalid Interpretation Code [facility] Work Phone: [phone] LDL Cholesterol 84 mg/dL Invalid Interpretation Code [facility] Work Phone: [phone] Platelets 190 10*3/mm3 Invalid Interpretation Code [facility] Work Phone: [phone] Potassium 4.3 mmol/L Invalid Interpretation Code [facility] Work Phone: [phone] Sodium 143 mmol/L Invalid Interpretation Code [facility] Work Phone: [phone] Triglyceride 47 mg/dL Invalid Interpretation Code [facility] Work Phone: [phone] Urea nitrogen 18 mg/dL Invalid Interpretation Code [facility] Work Phone: [phone] very low density lipoproteins 9 mg/dL Invalid Interpretation Code [facility] Work Phone: [phone] WBC (Leukocytes) 3.6 10*3/uL Invalid Interpretation Code [facility] Work Phone: [phone] Office Visiton 07-30-2014 cardiac risk group A Invalid Interpretation Code [facility] Work Phone: [phone] General cardiovascular disease 10Y risk [#] Miguel'Agokeith Not enough information Invalid Interpretation Code [facility] Work Phone: [phone] Lab Report: BMPon 05-13-2014 Anion gap 6 mmol/L Normal 5-15 [facility] Work Phone: [phone] BUN/Creatinine Ratio 24.3 RATIO High 10-20 [facility] [place] Work Phone: [phone] Calcium 8.7 mg/dL Normal 8.5-10.1 [facility] Work Phone: [phone] eGFR (non-black) 118 mL/min/{1.73_m2} Normal >60 [facility] Work Phone: [phone] eGFR (non-black) 97 mL/min/{1.73_m2} Normal >60 [facility] Work Phone: [phone] Glucose 87 mg/dL Normal 70-110 [facility] Work Phone: [phone] Lab Report: CBCon 01-14-2014 Erythrocytes (RBC) 5.03 10*6/uL Normal 4.2-5.4 [facility] Work Phone: [phone] MCH 29.2 pg Normal 27.0-32.0 [facility] Work Phone: [phone] MCHC 34.7 G/GL Normal 32-[address] [facility] Work Phone: [phone] MCV 84.3 fL Normal 81-99 [facility] Work Phone: [phone] PMV by Ayanna 9.3 fL Normal 6.2-12.0 [facility] Work Phone: [phone] External Other: Preferred Me thod of Contacton 01-08-2014 Patient's prefered method of contact secmsg Invalid Interpretation Code [facility] Work Phone: [phone] Vital Signs Date Time Vital Sign Value Performing Clinician Irai ramandeep 03-20-2022 15:51-0400 Body height 162.[address] Marcus Bolden Work Phone: [facility] Work Phone: 03-20-2022 15:51-0400 Body mass index (BMI) [Ratio] 35.3 kg/m2 Dr. Marcus Bolden Work Phone: [facility] Work Phone: 03-20-2022 15:51-0400 Body weight 93.[address] Marcus Bolden Work Phone: [facility] Work Phone: 03-20-2022 15:51-0400 Diastolic blood pressure 60 mm[Hg] Dr. Marcus Bolden Work Phone: [facility] Work Phone: 03-20-2022 15:51-0400 Heart rate 60 /min Dr. Marcus Bolden Work Phone: [facility] Work Phone: 03-20-2022 15:51-0400 Respiratory rate 16 /min Dr. Marcsu Bolden Work Phone: [facility] Work Phone: 03-20-2022 15:51-0400 Systolic blood pressure 120 mm[Hg] Dr. Marcus Bolden Work Phone: [facility] Work Phone: 02-19-2017 13:13-0400 BMI (Body Mass [...] Pulse (Heart Rate) 64 /min Machotrice Merino [facility] Work Phone: 02-19-2017 13:13-0400 Respiratory [...] Start: 11-24-2024 End: 11-24-2024 ambulatory Kyle Bolden Facility:[facility] Start: 09-22-2024 End: 09-22-[address] Kyle Bolden MD Work Phone: [facility] Work Phone: Start: 09-22-2024 End: 09-22-[address] Kyle Bolden MD -Laboratory Work Phone: Start: 09-22-2024 End: 09-22-2024 ambulatory Kyle Bolden Facility:[facility] Start: 07-01-2024 End: 07-01-[address] Kyle Bolden MD -Laboratory Work Phone: Start: 07-01-2024 End: 07-01-2024 ambulatory Kyle Bolden Facility:[facility] Start: 05-20-2024 End: 05-20-2024 ambulatory Kyle Bolden Facility:[facility] Start: 04-29-2024 End: 04-29-2024 ambulatory Whit Lindo [employer] Facility:[facility] Start: 03-31-2024 End: 04-01-2024 ambulatory Whit Lindo [employer] Facility:[facility] Start: 01-02-2024 [facility] Start: 04-27-2023 End: 04-27-2023 ambulatory [facility] Work Phone: Start: 04-27-2023 End: 04-27-2023 Patient encounter procedure [facility] Work Phone: Start: 12-19-2022 End: 12-19-2022 ambulatory [facility] Work Phone: Start: 12-19-2022 End: 12-19-2022 Patient encounter procedure [facility] Start: 12-14-2022 Registered Referred [facility] Start: 04-24-2022 End: 04-24-[address] Marcus Bolden Work Phone: [facility] Work Phone: Start: 04-24-2022 End: 04-24-[address] Marcsu Bolden Work Phone: [facility] Start: 04-17-2022 End: 04-17-[address] Marcus Bolden Work Phone: [facility] Work Phone: Start: 04-17-2022 End: 04-17-[address] Marcus Bolden Work Phone: [facility] Start: 03-20-2022 End: 03-20-[address] Marcus Bolden Work Phone: [facility] Start: 01-30-2022 End: 01-30-[address] Marcus Bolden Work Phone: [facility] Procedures Date Procedure Procedure Detail Performing [...] Date Care Activity Detail Author Start: 12-19-2022 [facility] Start: 02-20-2018 End: 02-20-2018 Appointment Appointment [facility] Work Phone: Start: 02-19-2017 End: 02-19-2017 Appointment Appointment [facility] Work Phone: Start: 02-19-2017 End: 02-19-2017 Follow Up Appt 1 year Follow Up Appt 1 year [facility] Work Phone: Start: 02-19-2017 End: 02-19-2017 PFM PFM [facility] Work Phone: Start: 02-21-2016 End: 02-21-2016 Follow Up Appt 1 year Follow Up Appt 1 year [facility] Work Phone: Start: 02-21-2016 End: 02-21-2016 PFM PFM [facility] Work Phone: Start: 02-22-2015 End: 02-22-2015 Follow Up Appt 1 year Follow Up Appt 1 year [facility] Work Phone: Start: 02-22-2015 End: 02-22-2015 PFM PFM [facility] Work Phone: Start: 07-30-2014 End: 02-01-2017 Follow Up Appt 6 months Follow Up Appt 6 months [facility] Work Phone: Start: 07-30-2014 End: 02-01-2017 PFM PFM [facility] Work Phone: Start: 04-29-2014 End: 05-13-2014 *BMP *BMP [facility] Work Phone: Start: 04-29-2014 End: 04-29-2014 Follow Up Appt 3 months Follow Up Appt 3 months [facility] Work Phone: Start: 04-29-2014 End: 04-29-2014 PFM PFM [facility] Work Phone: Start: 01-29-2014 End: 01-29-2014 Follow Up Appt Other Follow Up Appt Other [facility] Work Phone: Start: 01-29-2014 End: 01-29-2014 PFM PFM [facility] Work Phone: Start: 01-08-2014 End: 01-08-2014 Echocardiography Echocardiogram (complete) [facility] Work Phone: Start: 01-08-2014 End: 02-01-2017 Electrocardiogram, complete EKG (In office) [facility] Work Phone: Start: 01-08-2014 [...] 01-08-2014 Tilt table evaluation Tilt Table Test [facility] Work Phone: Erythropoietin (EPO) [Units/volume] in Serum or Plasma [facility] JAK2 gene [id number] [Presence] in Blood or Tissue by Molecular genetics method [facility] Immunizations Immunization Date Immunization Notes Care Provider [facility] 05-07-2024 influenza, seasonal, injectable, preservative free Dr. Kyle Bolden MD Work Phone: [facility] 05-03-2023 influenza, injectabl e, quadrivalent, preservative free Dr. Kyle Bolden MD Work Phone: [facility] 04-26-2022 influenza, injectabl e, quadrivalent, preservative free [facility] 04-26-2022 influenza, seasonal, injectable Dr. Marcus Bolden Work Phone: [facility] 05-03-2021 influenza, injectabl e, quadrivalent, preservative free [facility] 05-03-2021 influenza, seasonal, injectable Dr. Marcus Bolden Work Phone: [facility] 08-17-2020 Covid (Moderna) Dr. Noelle Bolden Work Phone: [facility] 07-20-2020 Covid (Moderna) Dr. Noelle Bolden Work Phone: [facility] 04-14-2020 influenza, injectabl e, quadrivalent, preservative free [facility] 04-14-2020 influenza, seasonal, injectable Dr. Marcus Bolden Work Phone: [facility] 04-29-2019 influenza, injectabl e, quadrivalent, preservative free [facility] 04-29-2019 influenza, seasonal, injectable Dr. Marcus Bolden Work Phone: [facility] 04-22-2018 influenza, injectabl e, quadrivalent, preservative free [facility] 04-22-2018 influenza, seasonal, injectable Dr. Marcus Bolden Work Phone: [facility] 04-04-2017 influenza, injectabl e, quadrivalent, preservative free [facility] 04-04-2017 influenza, seasonal, injectable Dr. Marcus Bolden Work Phone: [facility] 04-24-2016 influenza, injectabl e, quadrivalent, preservative free [facility] 04-24-2016 influenza, seasonal, injectable Dr. Marcus Bolden Work Phone: [facility] 05-24-2015 influenza, injectabl e, quadrivalent, preservative free [facility] 05-24-2015 influenza, seasonal, injectable Dr. Marcus Bolden Work Phone: [facility] 04-08-2014 influenza, injectabl e, quadrivalent, preservative free [facility] 04-08-2014 influenza, seasonal, injectable Dr. Marcus Bolden Work Phone: [facility] 07-17-[address] Marcus Bolden Work Phone: [facility] Payers Date Payer Category Payer Self-pay [id number] 2023 Unknown [id number] 2013 Unknown [id number] Unknown [id number] 2.16.8 [id number] Unknown [id number] 2.16.8 [id number] Unknown [id number] 2.16.8 [id number] Unknown [id number] 2.16.8 [id number] Unknown [id number] 2.16.8 [id number] Unknown [id number] 2.16.8 [id number] Unknown [id number] 2.16.8 [id number] Unknown [id number] 2.16.8 [id number] Social History Date Type Detail Facility Start: [facility] Start: 1970 Sex Assigned At Female [facility] Start: 03-31-2024 Tobacco smoking stat [facility] Never smoked tobacco (finding) [facility] Start: 09-27-2024 Sex Female (finding) [facility] Chief complaint+Reason for visit Narrative Note Date & Type Note Facility Chief complaint+Reason for visit Narrative Reason for Visit Nonrheumatic mitral (valve) prolapse Premature atrial contractions Premature ventricular contraction Syncope, vasovagal [facility] Work Phone: Chief complaint+Reason for visit Narrative Note Date & Type Note Facility Chief complaint+Reason for visit Narrative Reason for Visit Nonrheumatic mitral (valve) prolapse Premature atrial contractions Premature ventricular contraction Syncope, vasovagal [facility] Work Phone: Evaluation note Note Date & Type Note Facility Evaluation note Diagnosis Onset Date Nonrheumatic mitral (valve) prolapse acute Premature atrial contractions acute Premature ventricular contraction acute Syncope, vasovagal acute [facility] Work Phone: Evaluation note Note Date & Type Note Facility Evaluation note No assessment information availa ble [facility] Work Phone: Reason for referral (narrative) Note Date & Type Note Facility Reason for referral (narrative) No reason for referral information available [facility] Work Phone: Family History No Family History [...] No January 05, 2021 2: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 [employer] Your [employer]ag[employer] [facility]. provides no warranty or guarantee of the accuracy or completeness of information in this document.
== END | disposition home or self-care (01) ==
PROVIDERS: PCP Family Medicine; Referring Provider Family Medicine; Visit Provider Family Medicine
DX: E03.9 Hypothyroidism, unspecified (principal)
CPT/HCPCS: 84439; 84443; 86376

== ENCOUNTER → 2025-03-04 | Outpatient (CLI) | payer OTHER, SELFPAY ==
--- OUTSIDE RECORDS SUMMARY | 2025-03-04 06:19 | XMS RPT_ITS | CCD ---
Author Organization 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 Marcus Bolden Primary Care Provider Dr. Marcus Bolden Referring Provider МАРИНА Raymond Attending Provider Dr. Scottie Melgar Attending Provider Yuan ROGERS, Dr. Wright Primary Care Provider Yuan ROGERS, Dr. Wright Attending Provider Yuan ROGERS, Dr. Wright Referring Provider Yuan ROGERS, Dr. Wright Primary Care Provider Yuan ROGERS, Dr. Wright Attending Provider [phone] Yuan ROGERS, Dr. Wright Referring Provider Assessment, Health Risk Attending Provider Unava ilable Assessment, Health Risk Referring Provider Unava ilable Kyle Bolden Referring Unavailable [place] MRI MANAGER, Whit Attending Unavailable Kyle Bolden Primary Care Unavailable Kyle Bolden Primary Care Unavailable Kyle Bolden Attending Unavailable Kyle Bolden Referring Unavailable Kyle Bolden Primary Care Unavailable Assessment, Health Risk Attending Unavaila ble Assessment, Health Risk Referring Unavaila ble [place] MRI MANAGER, Whit Attending Unavailable [place] MRI MANAGER, Whit Referring Unavailable Kyle Bolden Primary Care Unavailable [place] MRI MANAGER, Whit Attending Unavailable [place] MRI MANAGER, Whit Referring Unavailable Yuan, Kyle Primary Care Unavailable Kyle Bolden Referring Unavailable Kyle Bolden Primary Care Unavailable Kyle Bolden Attending Unavailable Kyle Bolden Referring Unavailable Kyle Bolden Primary Care Unavailable Kyle Bolden Attending Unavailable Kyle Bolden Referring Unavailable Kyle Bolden Primary Care Unavailable Kyle Bolden Attending Unavailable Kyle Bolden Primary Care Unavailable Kyle Bolden Attending Unavailable Kyle Bolden Referring Unavailable Allergies Allergy Classification Reported Allergen(s) Allergy Type Date of Onset Reaction(s) Facility (2 sources) acetaminophen / traMADol drug allergy 4 [facility] Work Phone: (4 sources) erythromycin drug allergy 4 [facility] Work Phone: (6 sources) traMADol Drug Allergy 2 felt as if she was going to pass out [facility] (1 source) traMADol Drug Allergy 4 [facility] Repository Medications Current Medications Medication Drug Class(es) Dates Sig (Normalized) Sig (Original) amoxicillin 875 mg / clavulanate 125 mg oral tablet (2 sources) Penicillin-class Antibacterial Start: 06-16-2024 Amoxicillin-Pot Clavulanate 875-125 mg tablet Active 1 {tbl} PO Q12H 20 0 June 16, 2024 1:00am cetirizine hydrochloride 10 mg oral capsule (6 sources) Histamine-1 Receptor Antagonist Start: 01-05-2021 take 1 capsule by mouth once daily as needed Cetirizine (Zyrtec) 10 mg Capsule Active 10 mg PO DAILY as needed for ALLERGIES January 05, 2021 12:00am cholecalciferol 0.025 mg oral capsule (12 sources) Vitamin D Start: 03-17-2021 take 1 capsule by mouth once daily Cholecalciferol (Vitamin D3) 25 mcg (1,000 unit) capsule Active 25 ug PO DAILY March 17, 2021 12:00am Start: 11-27-2019 End: 03-17-2020 take 1 capsule by mouth every month Cholecalciferol (Vitamin D3) 1,250 mcg (50,000 unit) capsule Discontinued 1250 ug PO EVERY MONTH November 27, 2019 12:00am March 17, 2020 3:03pm Ciprofloxacin Hcl 0.3 % drops (1 source) Start: 11-28-2024 Ciprofloxacin Hcl 0.3 % drops Active 0 OPHTHALMIC .COMPLEX 5 1 November 28, 2024 12:00am put 1-2 drps in affected eye(s) every 2hr up to 8 times/day x2days; then 4 times/day x5days ophthalmic (eye) fluticasone propionate 0.05 mg/actuat metered dose nasal spray (6 sources) Corticosteroid Start: 01-05-2021 Fluticasone Pr opionate (Flonase Allergy Relief) 50 mcg/actuation [place],Suspension Active 1 NMA INTRANASAL DAILY as needed for Nasal Congestion January 05, 2021 12:00am Start: 01-05-2021 Fluticasone Pr opionate (Flonase Allergy Relief) 50 mcg/actuation [place],Suspension Active 1 SPRAY INTRANASAL DAILY January 05, 2021 12:00am ibuprofen 600 mg oral tablet (2 sources) Nonsteroidal Anti-inflammatory Drug Start: 10-18-2023 take 1 tablet by mouth every twelve hours as needed for pain Ibuprofen 600 mg tablet Active 600 mg PO Q12H as needed for pain 60 0 October 18, 2023 12:00am Completed/Discontinued Medications Medication Drug Class(es) Dates Sig (Normalized) Sig (Original) amoxicillin 875 mg oral tablet (6 sources) Penicillin-class Antibacterial Start: 7 End: 8 take 1 tablet by mouth twice daily Amoxicillin 875 mg tablet Discontinued 875 mg PO TWICE A DAY 20 0 June 23, 2017 1:00am February 18, 2018 10:44am azithromycin 250 mg oral tablet (2 sources) Macrolide Antimicrobial Start: 3 End: 4 take 2-5 tablets by mouth once daily Azithromycin 250 mg tablet Discontinued 0 PO .COMPLEX 6 0 July 06, 2023 1:00am March 31, 2024 10:11am take 500 mg today (day 1), then 250 mg for 4 days (days 2-5) PO calcium ascorbate 500 mg oral tablet (12 sources) Start: 1 End: 3 take 1 [...] One tablet by mouth daily FLUDROCORTISONE ACETATE [phone] Scottie Melgar MD methylPREDNISolone 4 mg oral tablet (6 sources) Corticosteroid Start: 0 End: 0 take 1 tablet by mouth once Methylprednisolone (Medrol (Carlos)) 4 mg tablets,dose pack Discontinued 0 PO per package directions November 27, 2019 12:00am March 17, 2020 3:03pm PO PER PKG DIR montelukast 10 mg oral tablet (2 sources) Leukotriene Receptor Antagonist Start: 3 End: 4 take 1 tablet by mouth once daily in the evening Montelukast (Singulair) 10 mg tablet Discontinued 10 mg PO EVERY EVENING July 06, 2023 1:00am March 31, 2024 10:12am pantoprazole 40 mg delayed release oral tablet (2 sources) Proton Pump Inhibitor Start: 4 End: 4 take 1 tablet by mouth once daily Pantoprazole (Protonix) 40 mg tablet,delayed release (DR/EC) Discontinued 40 mg PO DAILY October 18, 2023 12:00am March 31, 2024 10:12am valACYclovir 1000 mg oral tablet (6 sources) Herpesvirus Nucleoside Analog DNA Polymerase Inhibitor, Herpes Simplex Virus Nucleoside Analog DNA Polymerase Inhibitor, Herpes Zoster Virus Nucleoside Analog DNA Polymerase Inhibitor Start: 0 End: 0 Valacyclovir (Valtrex) 1 gram tablet Discontinued 1000 mg PO THREE TIMES A DAY November 27, 2019 12:00am March 17, 2020 3:03pm Zinc (12 sources) Start: 2 End: 3 take 1 [...] Date Documented Da te Episodic/Chronic Cardiac dysrhythmias (16 sources) Multiple premature ventricular complexes; Translations: [Ventricular premature depolarization] Chronic Cardiac dysrhythmias (2 sources) Palpitations; Translations: [Palpitations] 05-24-2023 Episodic Headache; including migraine (6 sources) Headache; Translations: [Headache] 08-11-2021 Episodic Heart valve disorders (8 sources) Mitral valve prolapse; Translations: [Nonrheumatic mitral (valve) prolapse] Chronic Immunizations and screening for infectious disease (8 sources) Contact with or exposure to other viral diseases; Translations: [Exposure to COVID-19 virus] 08-11-2021 Episodic Menopausal disorders (2 sources) Menopausal syndrome; Translations: [Menopausal and female climacteric states] 03-31-2024 Chronic Comment on above: [employer] Nonmalignant breast conditions (2 sources) Fibrocystic disease of breast; Translations: [Diffuse cystic mastopathy of unspecified breast] 03-31-2024 Chronic Nonspecific chest pain (6 sources) Chest pain; Translations: [Chest pain, unspecified] 07-10-2018 Episodic Syncope (10 sources) Vasovagal syncope; Translations: [Syncope and collapse] Onset: 12-31-2013 12-31-2013 Episodic Thyroid disorders (1 source) Hypothyroidism, unspecified; Translations: [Hypothyroidism, unspecified] Onset: 01-26-2025 Chronic Viral infection (6 sources) Herpes zoster; Translations: [Zoster without complications] [...] Interpretation Reference Range Facility Thyroid Peroxidase ABon - THYR PEROX AB 135 IU/mL High 0-34 [facility] Comment on above: Result Comment: Perf ormed at: - [facility] [address] [id number] Photographic Equipment Mechanic: Feliberto Gregory PhD, Phone: [phone] Performed By: #### L 506.0400, L562.9552 #### [facility] [address] [place], [address] Absolute lymphocyte countOrd ered By: HEALTH ASSESSMENT on 01-20-2025 Lymphocytes Auto (Unsp spec) [#/Vol] 1.24 10*3/uL 0.83-4.51 [facility] Absolute neutrophil countOrd ered By: HEALTH ASSESSMENT on 01-20-2025 Neutrophils (Bld) [#/Vol] 2.3 10*3/uL 2.0-7.7 [facility] Absolute nucleated red blood cell countOrdered By: HEALTH ASSESSMENT on 01-20-2025 Nucleated RBC (Bld) [#/Vol] 0.00 10*3/uL 0-5 [facility] Anion gap in Serum or Plasma Ordered By: HEALTH ASSESSMENT on 01-20-2025 Anion gap [Moles/Vol] 11 mmol/L 5- [facility] BUN/creatinine ratioOrdered By: HEALTH ASSESSMENT on 01-20-2025 Urea nitrogen/Creatinine [Mass ratio] 30.2 mg/mg High 10-20 [facility] Bilirubin Test strip Ql (U)O rdered By: HEALTH ASSESSMENT on 01-20-2025 Bilirubin Ql (U) Negative Negative [facility] Bilirubin directOrdered By: HEALTH ASSESSMENT on 01-20-2025 Bilirubin.direct [Mass/Vol] 0.18 mg/dL 0.00-0.30 [facility] Bilirubin, totalOrdered By: HEALTH ASSESSMENT on 01-20-2025 Bilirubin [Mass/Vol] 0.44 mg/dL 0.00-1.30 [facility] CBC, Employeeon 01-20-2025 Absolute Lymph 1.24 X10 3/uL Normal 0.83-4.51 [facility] Comment on above: Performed By: #### L 400.0100, L500.2900, L100.0200 #### [facility] [address] [place], [address] Absolute Neut 2.3 X10 3/uL Normal 2.0-7.7 [facility] Comment on above: Performed By: #### L 400.0100, L500.2900, L100.0200 #### [facility] [address] [place], [address] Basophils/100 WBC (Bld) 0.5 % Normal 0-1 [facility] Comment on above: Performed By: #### L 400.0100, L500.2900, L100.0200 #### [facility] [address] [place], [address] Eosinophils/100 WBC (Bld) 3.9 % Normal 0-5 [facility] Comment on above: Performed By: #### L 400.0100, L500.2900, L100.0200 #### [facility] [address] [place], [address] Erythrocyte distribution width (RBC) [Ratio] 12.2 % Normal 11.6-14.6 [facility] Comment on above: Performed By: #### L 400.0100, L500.2900, L100.0200 #### [facility] [address] [place], [address] Hematocrit (Bld) [Volume fraction] 42.9 % Normal 37-47 [facility] Comment on above: Performed By: #### L 400.0100, L500.2900, L100.0200 #### [facility] [address] [place], [address] Hemoglobin (Bld) [Mass/Vol] 14.5 g/dL Normal 12.0-15.0 [facility] Comment on above: Performed By: #### L 400.0100, L500.2900, L100.0200 #### [facility] [address] [place], [address] Lymphocytes/100 WBC (Bld) 30.5 % Normal 19-41 [facility] Comment on above: Performed By: #### L 400.0100, L500.2900, L100.0200 #### [facility] [address] [place], [address] MCH (RBC) [Entitic mass] 27.3 pg Normal 27.0-32.0 [facility] Comment on above: Performed By: #### L 400.0100, L500.2900, L100.0200 #### [facility] [address] [place], [address] MCHC (RBC) [Mass/Vol] 33.8 g/dL Normal 32-36 [facility] Comment on above: Performed By: #### L 400.0100, L500.2900, L100.0200 #### [facility] [address] [place], [address] MCV (RBC) [Entitic vol] 80.8 fL Low 81-99 [facility] Comment on above: Performed By: #### L 400.0100, L500.2900, L100.0200 #### [facility] [address] [place], [address] Monocytes/100 WBC (Bld) 9.4 % Normal 0-10 [facility] Comment on above: Performed By: #### L 400.0100, L500.2900, L100.0200 #### [facility] [address] [place], [address] Neutrophils/100 WBC (Bld) 55.5 % Normal 47-70 [facility] Comment on above: Performed By: #### L 400.0100, L500.2900, L100.0200 #### [facility] [address] [place], [address] NRBC # 0.00 10 3/uL Normal 0-5 [facility] Comment on above: Performed By: #### L 400.0100, L500.2900, L100.0200 #### [facility] [address] [place], [address] Nucleated RBC (Bld) [#/Vol] 0 10*3/uL Normal 0-5 [facility] Comment on above: Performed By: #### L 400.0100, L500.2900, L100.0200 #### [facility] [address] [place], [address] Platelet mean volume (Bld) [Entitic vol] 9.8 fL Normal 6.2-12.0 [facility] Comment on above: Performed By: #### L 400.0100, L500.2900, L100.0200 #### [facility] [address] [place], [address] Platelets (Bld) [#/Vol] 233 10*3/uL Normal 150-450 [facility] Comment on above: Performed By: #### L 400.0100, L500.2900, L100.0200 #### [facility] [address] [place], [address] RBC (Bld) [#/Vol] 5.31 10*6/uL Normal 4.2-5.4 [facility] Comment on above: Performed By: #### L 400.0100, L500.2900, L100.0200 #### [facility] [address] [place], [address] RDW SD 35.6 fl Normal 35.1-43.9 [facility] Comment on above: Performed By: #### L 400.0100, L500.2900, L100.0200 #### [facility] [address] [place], [address] WBC (Bld) [#/Vol] 4.1 10*3/uL Low 4.4-11.0 [facility] Comment on above: Performed By: #### L 400.0100, L500.2900, L100.0200 #### [facility] [address] [place], [address] Calculated very low density lipoprotein (VLDL) cholesterol measurementOrdered By: HEALTH ASSESSMENT on 01-20-2025 Calculated very low density lipoprotein (VLDL) cholesterol measurement 15 mg/dL 5-40 [facility] Carbon dioxide, total [Moles /volume] in Central venous bloodOrdered By: HEALTH ASSESSMENT on 01-20-2025 CO2 [Moles/Vol] 25.1 mmol/L 21.0-32.0 [facility] Chloride assayOrdered By: HE ALTH ASSESSMENT on 01-20-2025 Chloride [Moles/Vol] 103 mmol/L 98-108 [facility] Employee Profileon Cholesterol in LDL [Mass/Vol] 92 mg/dL Normal 0-130 [facility] Comment on above: Performed By: #### L 506.0400, L501.9520 #### [facility] [address] [place], [address] Erythrocyte distribution wid th ratioOrdered By: HEALTH ASSESSMENT on 01-20-2025 Erythrocyte distribution width (RBC) [Ratio] 12.2 % 11.6-14.6 [facility] Erythrocyte distribution wid th standard deviationOrdered By: HEALTH ASSESSMENT on 01-20-2025 Erythrocyte distribution width (RBC) [Ratio] 35.6 fl 35.1-43.9 [facility] Glomerular filtration rate ( GFR) estimation/1.73 sq m using serum, plasma, or whole bOrdered By: HEALTH ASSESSMENT on 01-20-2025 GFR/1.73 sq M.predicted among non-blacks MDRD (S/P/Bld) [Vol rate/Area] 105 mL/min/{1.73_m2} >60 [facility] Comment on above: mL/min/1.73m2 CKD-EP I Creatinine Equation (2020) Hematocrit Auto (Bld) [Volum e fraction]Ordered By: HEALTH ASSESSMENT on 01-20-2025 Hematocrit (Bld) [Volume fraction] 42.9 % 37-47 [facility] Hemoglobin measurementOrdere d By: HEALTH ASSESSMENT on 01-20-2025 Hemoglobin (Bld) [Mass/Vol] 14.5 g/dL 12.0-15.0 [facility] Ketones Test strip Ql (U)Ord ered By: HEALTH ASSESSMENT on 01-20-2025 Ketones Ql (U) Negative Negative [facility] - Chemistry and C hemistry - challengeOrdered By: HEALTH ASSESSMENT on 01-20-2025 AST [Catalytic activity/Vol] 15 U/L <32 [facility] Lactate dehydrogenase (LDH) measurementOrdered By: HEALTH ASSESSMENT on 01-20-2025 LDH [Catalytic activity/Vol] 158 U/L 84-246 [facility] MCV (mean corpuscular volume ) determinationOrdered By: HEALTH ASSESSMENT on 01-20-2025 MCV (RBC) [Entitic vol] 80.8 fL Low 81-99 [facility] Mean corpuscular hemoglobin (MCH) determinationOrdered By: HEALTH ASSESSMENT on 01-20-2025 MCH (RBC) [Entitic mass] 27.3 pg 27.0-32.0 [facility] Mean corpuscular hemoglobin concentration (MCHC) determinationOrdered By: HEALTH ASSESSMENT on 01-20-2025 MCHC (RBC) [Mass/Vol] 33.8 g/dL 32-36 [facility] Mean platelet volume determi nationOrdered By: HEALTH ASSESSMENT on 01-20-2025 Platelet mean volume (Bld) [Entitic vol] 9.8 fL 6.2-12.0 [facility] Neutrophil percentageOrdered By: HEALTH ASSESSMENT on 01-20-2025 Neutrophils/100 WBC (Bld) 55.5 % 47-70 [facility] Nitrite Test strip Ql (U)Ord ered By: HEALTH ASSESSMENT on 01-20-2025 Nitrite Ql (U) Negative Negative [facility] Nucleated red blood cell per centageOrdered By: HEALTH ASSESSMENT on 01-20-2025 Nucleated RBC/100 WBC (Bld) [Ratio] 0 % 0-5 [facility] Platelet countOrdered By: HE ALTH ASSESSMENT on 01-20-2025 Platelets (Bld) [#/Vol] 233 10*3/uL 150-450 [facility] Potassium measurement (mass/ volume)Ordered By: HEALTH ASSESSMENT on 01-20-2025 Potassium (Unsp spec) [Mass/Vol] 4.0 mmol/L 3.3-5.1 [facility] Protein Test strip Ql (U)Ord ered By: HEALTH ASSESSMENT on 01-20-2025 Protein Ql (U) Negative Negative [facility] RBC Auto (Bld) [#/Vol]Ordere d By: HEALTH ASSESSMENT on 01-20-2025 RBC (Bld) [#/Vol] 5.31 10*6/uL 4.2-5.4 [facility] Screening total cholesterol/ high density lipoprotein (HDL) cholesterol ratioOrdered By: HEALTH ASSESSMENT on 01-20-2025 Cholesterol.total/Choles terol in HDL [Mass ratio] 3.00 {ratio} [facility] Serum creatinine measurement (mass/volume)Ordered By: HEALTH ASSESSMENT on 01-20-2025 Creatinine [Mass/Vol] 0.65 mg/dL Low 0.70-1.20 [facility] Serum globulin measurementOr dered By: HEALTH ASSESSMENT on 01-20-2025 Globulin (S) [Mass/Vol] 2.4 g/dL 2.2-4.2 [facility] Serum glucose measurement (m ass/volume)Ordered By: HEALTH ASSESSMENT on 01-20-2025 Glucose [Mass/Vol] 98 mg/dL 70-99 [facility] Serum or plasma alanine eaton otransferase (ALT) measurementOrdered By: HEALTH ASSESSMENT on 01-20-2025 ALT [Catalytic activity/Vol] 11 U/L <35 [facility] Serum or plasma albumin shasta urement (mass/volume)Ordered By: HEALTH ASSESSMENT on 01-20-2025 Albumin [Mass/Vol] 4.2 g/dL 3.5-5.0 [facility] Serum or plasma albumin/glob ulin mass ratioOrdered By: HEALTH ASSESSMENT on 01-20-2025 Albumin/Globulin [Mass ratio] 1.8 {ratio} 0.9-2.4 [facility] Serum or plasma alkaline natali sphatase measurementOrdered By: HEALTH ASSESSMENT on 01-20-2025 ALP [Catalytic activity/Vol] 60 U/L 35-104 [facility] Serum or plasma calcium shasta urement (mass/volume)Ordered By: HEALTH ASSESSMENT on 01-20-2025 Calcium [Mass/Vol] 9.6 mg/dL 7.6-11.0 [facility] Serum or plasma cholesterol in HDL measurement (mass/volume)Ordered By: HEALTH ASSESSMENT on 01-20-2025 Cholesterol in HDL [Mass/Vol] 53 mg/dL >40 [facility] Comment on above: National Cholesterol Education Program (NCEP) guidelines:<40 mg/dL: Low HDL-cholesterol (major risk factor for CHD)>= 60 mg/dL: High HDL-cholesterol (negative risk factor for CHD)HDL-cholesterol is affected by a number of factors, e.g. smoking, exercise, hormones, sex and age. Serum or plasma cholesterol in LDL measurement (mass/volume)Ordered By: HEALTH ASSESSMENT on 01-20-2025 Cholesterol in LDL [Mass/Vol] 92 mg/dL 0-130 [facility] Serum or plasma cholesterol measurement (mass/volume)Ordered By: HEALTH ASSESSMENT on 01-20-2025 Cholesterol [Mass/Vol] 160 mg/dL <201 [facility] Comment on above: Cholesterol level, D esirable <200 mg/dLBorderline high cholesterol 200-239 mg/dLHigh cholesterol >=240 mg/dLRecommendations of the NCEP Adult Treatment Panel for the following risk-cutoff thresholds for the [place] population. Serum or plasma thyroperoxid ase antibody assay (units/volume)Ordered By: Kyle Bolden on 01-20-2025 TPO Ab Qn 135 [IU]/mL High 0-34 [facility] Comment on above: Performed at: [address] [id number] Director: Feliberto Gregory PhD, Phone: [phone] Serum or plasma urea nitroge n measurement (mass/volume)Ordered By: HEALTH ASSESSMENT on 01-20-2025 Urea nitrogen [Mass/Vol] 20 mg/dL High 4-19 [facility] Serum or plasma uric acid me asurement (mass/volume)Ordered By: HEALTH ASSESSMENT on 01-20-2025 Urate [Mass/Vol] 4.0 mg/dL 2.6-6.0 [facility] Comment on above: The drugs N-Acetylcy steine and Metamizole may falsely depress this assay. Sodium levelOrdered By: HEAL ASSESSMENT on 01-20-2025 Sodium [Moles/Vol] 140 mmol/L 133-145 [facility] T4 Free Directon 01-20-2025 T4 FREE DIRECT 2.10 ng/dL High 0.76-1.46 [facility] Comment on above: Order Comment: Order Date: 11/24/24 Order Info: 3016-3 - TSH Order Info: 3024-7 - T4F Performed By: #### L 506.0400, L501.9520 #### [facility] [address] [place], [place], [id number] T4 freeOrdered By: Adrian Bolden on 01-20-2025 Free T4 [Mass/Vol] 2.10 ng/dL High 0.76-1.46 [facility] TSH DL <= 0.005 mIU/L QnOrde red By: Kyle Bolden on 01-20-2025 TSH Qn < 0.005 uIU/mL Low 0.300-4.200 [facility] Thyroid Stim Hormone (TSH)on 01-20-2025 TSH Qn m[IU]/L Low 0.300-4.200 [facility] Comment on above: Order Comment: Order Date: 11/24/24 Order Info: 3016-3 - TSH Order Info: 3024-7 - T4F Performed By: #### L 506.0400, L501.9520 #### [facility] [address] [place], [address] Total proteinOrdered By: ALYSHA [facility] ASSESSMENT on 01-20-2025 Protein [Mass/Vol] 6.6 g/dL 5.9-8.4 [facility] Triglycerides measurementOrd ered By: HEALTH ASSESSMENT on 01-20-2025 Triglyceride [Mass/Vol] 74 mg/dL <199 [facility] Comment on above: The drugs N-Acetylcy steine and Metamizole may falsely depress this assay. Normal range: <150 mg/dLBorderline High: 150-199 mg/dLHigh: 200-499 mg/dLVery High: >500 mg/dL Urinalysis, Employeeon 01-20 BILIRUBIN URINE Negative Normal Negative [facility] Comment on above: Order Comment: Order Date: 11/24/24 Order Info: 3016-3 - TSH Order Info: 3024-7 - T4F Performed By: #### L 506.0400, L501.9520 #### [facility] [address] [place], [address] Clarity (U) Clear Normal Clear [facility] Comment on above: Order Comment: Order Date: 11/24/24 Order Info: 3016-3 - TSH Order Info: 3024-7 - T4F Performed By: #### L 506.0400, [id number] #### [facility] [address] [place], [address] Color (U) Yellow Normal Yellow [facility] Comment on above: Order Comment: Order Date: 11/24/24 Order Info: 3016-3 - TSH Order Info: 3024-7 - T4F Performed By: #### L 506.0400, L501.9520 #### [facility] [address] [place], [address] GLUCOSE, UR Normal Normal Normal [facility] Comment on above: Order Comment: Order Date: 11/24/24 Order Info: 3016-3 - TSH Order Info: 3024-7 - T4F Performed By: #### L 506.0400, L501.9520 #### [facility] [address] [place], [address] KETONE UR Negative Normal Negative [facility] Comment on above: Order Comment: Order Date: 11/24/24 Order Info: 3016-3 - TSH Order Info: 3024-7 - T4F Performed By: #### L 506.0400, [id number] #### [facility] [address] [place], [address] LEUK ESTERASE Negative Normal Negative [facility] Comment on above: Order Comment: Order Date: 11/24/24 Order Info: 3016-3 - TSH Order Info: 3024-7 - T4F Performed By: #### L 506.0400, L501.9520 #### [facility] [address] [place], [address] Nitrite Ql (U) Negative Normal Negative [facility] Comment on above: Order Comment: Order Date: 11/24/24 Order Info: 3016-3 - TSH Order Info: 3024-7 - T4F Performed By: #### L 506.0400, L501.9520 #### [facility] [address] [place], [address] OCCULT BLOOD-UR Negative Normal Negative [facility] Comment on above: Order Comment: Order Date: 11/24/24 Order Info: 3016-3 - TSH Order Info: 3024-7 - T4F Performed By: #### L 506.0400, [id number] #### [facility] [address] [place], [address] pH UR 6.5 Normal 5.0 - 8.0 [facility] Comment on above: Order Comment: Order Date: 11/24/24 Order Info: 3016-3 - TSH Order Info: 3024-7 - T4F Performed By: #### L 506.0400, L501.9520 #### [facility] [address] [place], [address] PROT DIPSTX Negative Normal Negative [facility] Comment on above: Order Comment: Order Date: 11/24/24 Order Info: 3016-3 - TSH Order Info: 3024-7 - T4F Performed By: #### L 506.0400, [id number] #### [facility] [address] [place], [address] SP.GR. DIPSTX 1.015 Normal 1.002-1.030 [facility] Comment on above: Order Comment: Order Date: 11/24/24 Order Info: 3016-3 - TSH Order Info: 3024-7 - T4F Performed By: #### L 506.0400, [id number] #### [facility] [address] [place], [address] UROBILI Normal Normal Normal [facility] Comment on above: Order Comment: Order Date: 11/24/24 Order Info: 3016-3 - TSH Order Info: 3024-7 - T4F Performed By: #### L 506.0400, L501.9520 #### [facility] [address] [place], [address] Urine clarityOrdered By: Moreno [facility] ASSESSMENT on 01-20-2025 Clarity (U) Clear Clear [facility] Urine color determinationOrd ered By: HEALTH ASSESSMENT on 01-20-2025 Color (U) Yellow Yellow [facility] Urine glucose detectionOrder ed By: HEALTH ASSESSMENT on 01-20-2025 Glucose Ql (U) Normal mg/dl Normal [facility] Urine leukocyte esterase det ection by dipstickOrdered By: HEALTH ASSESSMENT on 01-20-2025 Leukocyte esterase Test strip Ql (U) Negative Negative [facility] Urine pHOrdered By: HEALTH A SSESSMENT on 01-20-2025 pH (U) 6.5 [pH] 5.0 - 8.0 [facility] Urine specific gravity measu rementOrdered By: HEALTH ASSESSMENT on 01-20-2025 Specific gravity (U) [Rel density] 1.015 1.002-1.030 [facility] Urine urobilinogen measureme ntOrdered By: HEALTH ASSESSMENT on 01-20-2025 Urobilinogen Ql (U) Normal mg/dl Normal [facility] White blood cell (WBC) count Ordered By: HEALTH ASSESSMENT on 01-20-2025 WBC (Bld) [#/Vol] 4.1 10*3/uL Low 4.4-11.0 [facility] Thyroid Peroxidase ABon 05- THYR PEROX AB 118 IU/mL High 0-34 [facility] Comment on above: Result Comment: Perf ormed at: [facility] [place] [id number] Photographic Equipment Mechanic: Feliberto Gregory PhD, Phone: [phone] Performed By: #### Teodoro [id number] #### [facility] [address] [place], [address] Serum or plasma thyroperoxid ase antibody assay (units/volume)Ordered By: Kyle Bolden on 11-24-2024 TPO Ab Qn 118 [IU]/mL High [facility] Comment on above: Performed at: - [facility] [address] [id number] Director: Feliberto Gregory PhD, Phone: [phone] T4 Free Directon 11-24-2024 T4 FREE DIRECT 1.50 ng/dL High 0.76-1.46 [facility] Comment on above: Order Comment: Order Date: 09/23/24 Order Info: 3016-3 - TSH Order Info: 3024-7 - T4F Performed By: #### L 506.0400, L501.9520 #### [facility] [address] [place], [address] T4 freeOrdered By: Adrian Bolden on 11-24-2024 Free T4 [Mass/Vol] 1.50 ng/dL High 0.76-1.46 [facility] TSH DL <= 0.005 mIU/L QnOrde red By: Kyle Bolden on 11-24-2024 TSH Qn 0.006 uIU/mL Low 0.300-4.200 [facility] Thyroid Stim Hormone (TSH)on 11-24-2024 TSH 0.006 uIU/mL Low 0.300-4.200 [facility] Comment on above: Order Comment: Order Date: 09/23/24 Order Info: 3016-3 - TSH Order Info: 7 - T4F Performed By: #### L 506.0400, [id number] #### [facility] [address] [place], [place], [address] T4 Free Directon 09-22-2024 T4 FREE DIRECT 2.10 ng/dL High 0.76-1.46 [facility] Comment on above: Order Comment: Order Date: 07/22/24 Order Info: 3016-3 - TSH Order Info: 3024-01 - T4F Performed By: #### L 506.0400, L544.9520 #### [facility] [address] [place], [place], [address] T4 freeOrdered By: Adrian Bolden on 09-22-2024 Free T4 [Mass/Vol] 2.10 ng/dL High 0.76-1.46 [facility] TSH DL <= 0.005 mIU/L QnOrde red By: Kyle Bolden on 09-22-2024 Thyroid Stimulating Hormone (TSH) 0.017 uIU/mL Low 0.300-4.200 [facility] Thyroid Stim Hormone (TSH)on 09-22-2024 TSH 0.017 uIU/mL Low 0.300-4.200 [facility] Comment on above: Order Comment: Order Date: 07/22/24 Order Info: 3016-3 - TSH Order Info: 30247 - T4F Performed By: #### L 506.0400, L501.9520 #### [facility] [address] [place], [place], [address] Direct serum free thyroxine (FT4) measurementOrdered By: Kyle Bolden on 07-01-2024 Free T4 [Mass/Vol] 1.09 ng/dL 0.76-1.46 [facility] T4 Free Directon 07-01-2024 T4 FREE DIRECT 1.09 ng/dL Normal 0.76-1.46 [facility] Comment on above: Order Comment: Order Date: 07/22/24 Order Info: 3016-3 - TSH Order Info: 3024-7 - T4F Performed By: #### L 506.0400, L501.9520 #### [facility] [address] [place], [place], [address] TSH QnOrdered By: Marcus Bolden on 07-01-2024 Thyroid Stimulating Hormone (TSH) 0.449 uIU/mL 0.358-3.740 [facility] Thyroid Stim Hormone (TSH)on 07-01-2024 TSH 0.449 uIU/mL Normal 0.358-3.740 [facility] Comment on above: Order Comment: Order Date: 07/22/24 Order Info: 3016-3 - TSH Order Info: 3024-7 - T4F Performed By: #### L 506.0400, L501.9520 #### [facility] [address] [place], [place], [address] Free T3on 05-20-2024 Free T3 [Mass/Vol] 3.0 pg/mL Normal 2.18-3.98 [facility] Comment on above: Order Comment: Order Date: 11/24/24 Order Info: 3016-3 - TSH Order Info: 3024-7 - T4F Performed By: #### L 506.0400, L501.9520 #### [facility] [address] [place], [address] T4 Free Directon 05-20-2024 T4 FREE DIRECT 1.48 ng/dL High 0.76-1.46 [facility] Comment on above: Order Comment: Order Date: 11/24/24 Order Info: 3016-3 - TSH Order Info: 3024-7 - T4F Performed By: #### L 506.0400, [id number] #### [facility] [address] [place], [address] Thyroid Stim Hormone (TSH)on 05-20-2024 TSH 0.086 uIU/mL Low 0.358-3.740 [facility] Comment on above: Order Comment: Order Date: 11/24/24 Order Info: 3016-3 - TSH Order Info: 3024-7 - T4F Performed By: #### L 506.0400, L501.9520 #### [facility] [address] [place], [place], [address] SCRN MAMM (CAD)W/ROCAEL BILATo n 04-29-2024 SCRN MAMM (CAD)W/ROCAEL BILAT [facility] Imaging Services [address] [place], [place] [address] SCRN MAMM (CAD)W/ROCAEL BILAT MR#: [id number] Acct: [id number] Name: JANICE SO Rep #: [id number] : 1970 F 53 From: You silverio MD PCP: Dr. Kyle Bolden MD Status: [facility] Study: SCRN MAMM (CAD)W/ROCAEL BILAT Date of Exam: 04/09 09/01 Exam# [id number] Ordering Dr: Whit Lindo NP MRI MANAGER -C -[id number] MAMMOGRAPHY - BILATERAL SCREENING REASON FOR [...] delay biopsy of a clinically suspicious abnormality. [id number] Electronically Signed: You Adkins MD at 10:09 EDT Reading Location ID and State: [address] [place] [address] , Service support , CC: RAY Lindo; Dr. Kyle Bolden MD Coat Operator: Signed Normal [facility] Thyroid Peroxidase ABon 09-2 THYR PEROX AB 120 IU/mL High 0-34 [facility] Comment on above: Result Comment: Perf ormed at: - [facility] [address], [place], [place] [id number] Photographic Equipment Mechanic: Feliberto Gregory PhD, Phone: [phone] Performed By: #### L 506.0400, L570.7275 #### [facility] [address] [place], [address] T4 Free Directon 04-01-2024 T4 FREE DIRECT 0.72 ng/dL Low 0.76-1.46 [facility] Comment on above: Performed By: #### L 506.0400, L501.9520 #### [facility] [address] [place], [place], [address] Thyroid Stim Hormone (TSH)on 04-01-2024 TSH 9.540 uIU/mL High 0.358-3.740 [facility] Comment on above: Performed By: #### L 506.0400, L501.9520 #### [facility] [address] [place], [place], [address] Vitamin D,25 Hydroxyon 04-01 Vitamin D 25-OH 23.8 ng/mL Normal [facility] Comment on above: Result Comment: Nani min D 25(OH) Status Range Deficiency <20 ng/mL (50nmol/L) Insufficiency 20 - 30 ng/mL (50 - 75 nmol/L) Sufficiency 30 - 100 ng/mL (75 - 250 nmol/L) Toxicity >100 ng/mL (>250 nmol/L) Performed By: #### L 506.0400, L501.9520 #### [facility] [address] 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 Member Required: No Is patient in pain?: No [...] menopausal: No Patient : No : No [facility] Medical History (Updated 03/31/24 @ 10:41 by Whit Lindo NP, MRI MANAGER-C) Shingles Obesity Wears glasses Anxiety Back pain [...] spouse current occupational status: employed current occupation: [employer] Smoking Status: Never smoker alcohol intake: never substance use type: does not use seatbelt use: always do you feel safe at home: Yes additional social history: - [employer] History 2 Elective abortions Hx Para 3 Spontaneous abortions Hx # Term Pregnancies Ectopic pregnancies Hx # Pregnancies Multiple births 1 # of living children 3 Past Pregnancies Del. Date Name GA/Weeks Outcome Route Bth Weight Gen Labor Lgth Anesthesia Del Locatn Provider FOB Unknown Alvarado Unknown Makayla Unknown Mee HPI Encounter for routine gynecological examination Details: JANICE SO is a 53 year old who presents for new patient annual exam. Works in [employer]. Previous patient Dr Quintero. Menses more irregular, [...] Resp Ef (more content not included)... Normal [facility] Whole blood hemoglobin A1c/t otal hemoglobin ratio (mass fraction)Ordered By: Dr. Bolden on 12-19-2022 HbA1c (Bld) [Mass fraction] 5.6 % 3.8-5.6 [facility] Comment on above: Normal < 5.7 % Predi abetic 5.7 - 6.4 % Diabetic >or= 6.5 % Please note range changes. Absolute lymphocyte countOrd ered By: HEALTH ASSESSMENT on 12-14-2022 Lymphocytes Auto (Unsp spec) [#/Vol] 1.40 10*3/uL 0.83-4.51 [facility] Absolute reticulocyte countO rdered By: HEALTH ASSESSMENT on 12-14-2022 Reticulocytes (Bld) [#/Vol] 0.00 10*3/uL 0-5 [facility] Basophil percentageOrdered B y: HEALTH ASSESSMENT on 12-14-2022 Basophil percentage 2.9 mg/dL 2.5-4.9 [facility] Bilirubin [Mass/Vol] 0.60 mg/dL 0.20-1.00 [facility] Comment on above: For patients on eltr ombopag therapy, use of Dimension Richardson TBIL is not recommended. Chloride [Moles/Vol] 107 mmol/L 98-107 [facility] Cholesterol [Mass/Vol] 178 mg/dL <200 [facility] Comment on above: <200 mg/dL Desirable 200-240 mg/dL Borderline >240 mg/dL High Risk Glucose [Mass/Vol] 110 mg/dL 74-106 [facility] Comment on above: Fasting Glucose resu lt from 100 to 125 mg/dL suggests IMPAIRED HOMEOSTASIS per A.D.A. criteria. LDH [Catalytic activity/Vol] 171 U/L 84-246 [facility] Neutrophils (Bld) [#/Vol] 2.1 10*3/uL 2.0-7.7 [facility] Potassium [Moles/Vol] 3.7 mmol/L 3.5-5.1 [facility] Protein [Mass/Vol] 7.1 g/dL 6.4-8.2 [facility] Sodium [Moles/Vol] 140 mmol/L 136-145 [facility] Triglyceride [Mass/Vol] 84 mg/dL <199 [facility] Comment on above: The drugs N-Acetylcy steine and Metamizole may falsely depress this assay.Serum Triglycerides Reference Interval Normal <150 mg/dL Borderline high 150 - 199 mg/dL High 200 - 499 mg/dL Very High > or = 500 mg/dL WBC (Bld) [#/Vol] 4.1 10*3/uL 4.4-11.0 [facility] Bilirubin Test strip Ql (U)O rdered By: HEALTH ASSESSMENT on 12-14-2022 Bilirubin Ql (U) Negative Negative [facility] Blood erythrocytes count (nu mber/volume)Ordered By: HEALTH ASSESSMENT on 12-14-2022 RBC (Bld) [#/Vol] 5.55 10*6/uL 4.2-5.4 [facility] Blood hemoglobin measurement (mass/volume)Ordered By: HEALTH ASSESSMENT on 12-14-2022 Hemoglobin (Bld) [Mass/Vol] 15.8 g/dL 12.0-15.0 [facility] Blood platelet mean volumeOr dered By: HEALTH ASSESSMENT on 12-14-2022 Platelet mean volume (Bld) [Entitic vol] 9.9 fL 6.2-12.0 [facility] Determination of erythrocyte mean corpuscular volume (MCV)Ordered By: HEALTH ASSESSMENT on 12-14-2022 MCV (RBC) [Entitic vol] 85.4 fL 81-99 [facility] Direct bilirubinOrdered By: HEALTH ASSESSMENT on 12-14-2022 Bilirubin.direct [Mass/Vol] 0.17 mg/dL 0.00-0.30 [facility] Hematocrit Auto (Bld) [Volum e fraction]Ordered By: HEALTH ASSESSMENT on 12-14-2022 Hematocrit (Bld) [Volume fraction] 47.4 % 37-47 [facility] Ketones Test strip Ql (U)Ord ered By: HEALTH ASSESSMENT on 12-14-2022 Ketones Ql (U) Negative Negative [facility] - Chemistry and C hemistry - challengeOrdered By: HEALTH ASSESSMENT on 12-14-2022 ALP [Catalytic activity/Vol] 49 U/L 45-117 [facility] ALT [Catalytic activity/Vol] 17 U/L 13-56 [facility] Cholesterol.total/Choles terol in HDL [Mass ratio] 3.50 {ratio} [facility] CO2 [Moles/Vol] 29.0 mmol/L 21.0-32.0 [facility] Globulin (S) [Mass/Vol] 3.3 g/dL 2.2-4.2 [facility] Urea nitrogen/Creatinine [Mass ratio] 20.2 mg/mg 10-20 [facility] - Hematology and Cell countsOrdered By: HEALTH ASSESSMENT on 12-14-2022 Erythrocyte distribution width (RBC) [Entitic vol] 38.5 fL 35.1-43.9 [facility] Erythrocyte distribution width (RBC) [Ratio] 12.3 % 11.6-14.6 [facility] MCH (RBC) [Entitic mass] 28.5 pg 27.0-32.0 [facility] Nucleated RBC/100 WBC (Bld) [Ratio] 0 % 0-5 [facility] MCHC Auto (RBC) [Mass/Vol]Or dered By: HEALTH ASSESSMENT on 12-14-2022 MCHC (RBC) [Mass/Vol] 33.3 g/dL 32-36 [facility] Nitrite Test strip Ql (U)Ord ered By: HEALTH ASSESSMENT on 12-14-2022 Nitrite Ql (U) Negative Negative [facility] No Panel InformationOrdered By: HEALTH ASSESSMENT on 12-14-2022 Estimated GFR (MDRD) Amer 105 mL/min >60 [facility] Comment on above: GFR Calc Estimated GFR (MDRD) Non-Af Amer 87 mL/min >60 [facility] Comment on above: Non- GFR Calc Platelets bldOrdered By: ALYSHA [facility] ASSESSMENT on 12-14-2022 Platelets (Bld) [#/Vol] 267 10*3/uL 150-450 [facility] Protein Test strip Ql (U)Ord ered By: HEALTH ASSESSMENT on 12-14-2022 Protein Ql (U) Negative Negative [facility] Segmented neutrophils/100 WB C Auto (Bld)Ordered By: HEALTH ASSESSMENT on 12-14-2022 Segmented neutrophils/100 WBC (Bld) 50.5 % 47-70 [facility] Serum or plasma albumin shasta urement (mass/volume)Ordered By: HEALTH ASSESSMENT on 12-14-2022 Albumin [Mass/Vol] 3.8 g/dL 3.2-5.0 [facility] Serum or plasma albumin/glob ulin mass ratioOrdered By: HEALTH ASSESSMENT on 12-14-2022 Albumin/Globulin [Mass ratio] 1.2 {ratio} 0.9-2.4 [facility] Serum or plasma calcium shasta urement (mass/volume)Ordered By: HEALTH ASSESSMENT on 12-14-2022 Calcium [Mass/Vol] 9.1 mg/dL 8.5-10.1 [facility] Serum or plasma cholesterol in HDL measurement (mass/volume)Ordered By: HEALTH ASSESSMENT on 12-14-2022 Cholesterol in HDL [Mass/Vol] 51 mg/dL >40 [facility] Comment on above: The drugs N-Acetylcy steine and Metamizole may falsely depress this assay. Reference Range HDL <40 mg/dL Low HDL Cholesterol HDL >or= 60 mg/dL High HDL Cholesterol Serum or plasma cholesterol in VLDL measurement (mass/volume)Ordered By: HEALTH ASSESSMENT on 12-14-2022 Cholesterol in VLDL [Mass/Vol] 17 mg/dL 5-40 [facility] Serum or plasma creatinine m easurement (mass/volume)Ordered By: HEALTH ASSESSMENT on 12-14-2022 Creatinine [Mass/Vol] 0.74 mg/dL 0.55-1.02 [facility] Comment on above: The validity of the calculated GFR & GFRAA in patients over 70 years has not been determined. Clinical correlation is essential. Serum or plasma low density lipoprotein (LDL) cholesterol measurement (mass/volume)Ordered By: HEALTH ASSESSMENT on 12-14-2022 Cholesterol in LDL [Mass/Vol] 110 mg/dL 0-130 [facility] Serum or plasma urea nitroge n measurement (mass/volume)Ordered By: HEALTH ASSESSMENT on 12-14-2022 Urea nitrogen [Mass/Vol] 15 mg/dL 7-18 [facility] Serum or plasma uric acid me asurement (mass/volume)Ordered By: HEALTH ASSESSMENT on 12-14-2022 Urate [Mass/Vol] 3.4 mg/dL 2.6-6.0 [facility] Comment on above: The drugs N-Acetylcy steine and Metamizole may falsely depress this assay. Thin prep Papanicolaou smear with manual screeningOrdered By: HEALTH ASSESSMENT on 12-14-2022 Thin prep Papanicolaou smear with manual screening 12 U/L 15-37 [facility] Thin prep Papanicolaou smear with manual screening 4 5-15 [facility] Urine blood detectionOrdered By: HEALTH ASSESSMENT on 12-14-2022 RBC Ql (U) Negative Negative [facility] Urine clarityOrdered By: HEA LT ASSESSMENT on 12-14-2022 Clarity (U) Sl. Cloudy Clear [facility] Urine color determinationOrd ered By: HEALTH ASSESSMENT on 12-14-2022 Color (U) Yellow Yellow [facility] Urine glucose detectionOrder ed By: HEALTH ASSESSMENT on 12-14-2022 Glucose Ql (U) Normal mg/dl Normal [facility] Urine leukocyte esterase det ection by dipstickOrdered By: HEALTH ASSESSMENT on 12-14-2022 Leukocyte esterase Test strip Ql (U) 25 /ul Negative [facility] Urine pHOrdered By: HEALTH A SSESSMENT on 12-14-2022 pH (U) 8.0 [pH] 5.0 - 8.0 [facility] Urine specific gravity measu rementOrdered By: HEALTH ASSESSMENT on 12-14-2022 Specific gravity (U) [Rel density] 1.015 1.002-1.030 [facility] Urobilinogen Auto test strip Ql (U)Ordered By: HEALTH ASSESSMENT on 12-14-2022 Urobilinogen Ql (U) Normal mg/dl Normal [facility] - Microbiology an d Antimicrobial susceptibilityon 01-30-2022 SARS-CoV-2 (COVID-19) RNA KASSIDY+probe Ql (Unsp spec) Detected [facility] Work Phone: No Panel Informationon 01-30 POC Nasal Swab Influenza A,B Not detected [facility] Work Phone: POC Nasal Swab RSV Not detected [facility] Work Phone: Office Visiton 02-19-2017 Dietary management education, guidance, and counseling (procedure) yes Invalid Interpretation Code [facility] Work Phone: [phone] Documentation of current medications (procedure) Done Invalid Interpretation Code [facility] Work Phone: [phone] Fall risk assessment No Invalid Interpretation Code [facility] Work Phone: [phone] Tobacco use CPHS Never smoker Invalid Interpretation Code [facility] Work Phone: [phone] Replaced Document: Norma RODRIGUEZ Observationson 02-21-2016 electrocardiogram interpretation Sinus Rhythm WITHIN NORMAL LIMITS Invalid Interpretation Code [facility] Work Phone: [phone] GE use only - for [employer] import when terms are not otherwise specified 424 ms Invalid Interpretation Code [facility] Work Phone: [phone] P wave axis, electrocardiogram 33 deg Invalid Interpretation Code [facility] Work Phone: [phone] AL interval, electrocardiogram 158 ms Invalid Interpretation Code [facility] Work Phone: [phone] Pulse (Heart Rate) 66 /min Invalid Interpretation Code [facility] Work Phone: [phone] QRS axis, electrocardiogram 52 deg Invalid Interpretation Code [facility] Work Phone: [phone] QRS duration, electrocardiogram 92 ms Invalid Interpretation Code [facility] Work Phone: [phone] QT interval, electrocardiogram new path ms Invalid Interpretation Code [facility] Work Phone: [phone] T wave axis, electrocardiogram 31 deg Invalid Interpretation Code [facility] Work Phone: [phone] Clinical Lists Updateon 02-06 Left ventricular Ejection fraction 60 % Invalid Interpretation Code [facility] Work Phone: [phone] Clinical Lists Updateon 07-10 Alanine aminotransferase (ALT) 16 U/L Invalid Interpretation Code [facility] Work Phone: [phone] Alkaline phosphatase (ALP) 32 U/L Invalid Interpretation Code [facility] Work Phone: [phone] Aspartate aminotransferase (AST) 14 U/L Invalid Interpretation Code [facility] Work Phone: [phone] Chloride 110 mmol/L Invalid Interpretation Code [facility] Work Phone: [phone] Cholesterol 148 mg/dL Invalid Interpretation Code [facility] Work Phone: [phone] CO2 26.0 mmol/L Invalid Interpretation Code [facility] Work Phone: [phone] Creatinine 0.79 mg/dL Invalid Interpretation Code [facility] Work Phone: [phone] HDL Cholesterol 55 mg/dL Invalid Interpretation Code [facility] Work Phone: [phone] Hematocrit (HCT) 45.0 % Invalid Interpretation Code [facility] Work Phone: [phone] Hemoglobin (HGB) 15.0 g/dL Invalid Interpretation Code [facility] Work Phone: [phone] LDL Cholesterol 84 mg/dL Invalid Interpretation Code [facility] Work Phone: [phone] Platelets 190 10*3/mm3 Invalid Interpretation Code [facility] Work Phone: [phone] Potassium 4.3 mmol/L Invalid Interpretation Code [facility] Work Phone: [phone] Sodium 143 mmol/L Invalid Interpretation Code [facility] Work Phone: [phone] Triglyceride 47 mg/dL Invalid Interpretation Code [facility] Work Phone: [phone] Urea nitrogen 18 mg/dL Invalid Interpretation Code [facility] Work Phone: [phone] very low density lipoproteins 9 mg/dL Invalid Interpretation Code [facility] Work Phone: [phone] WBC (Leukocytes) 3.6 10*3/uL Invalid Interpretation Code [facility] Work Phone: [phone] Office Visiton 07-30-2014 cardiac risk group A Invalid Interpretation Code [facility] Work Phone: [phone] General cardiovascular disease 10Y risk [#] Idabel.D'Agostfanta Not enough information Invalid Interpretation Code [facility] Work Phone: [phone] Lab Report: BMPon 05-13-2014 Anion gap 6 mmol/L Normal 5-15 [facility] Work Phone: [phone] BUN/Creatinine Ratio 24.3 RATIO High 10-20 [employer] Work Phone: [phone] Calcium 8.7 mg/dL Normal 8.5-10.1 [employer] Work Phone: [phone] eGFR (non-black) 118 mL/min/{1.73_m2} Normal >60 [employer] Work Phone: [phone] eGFR (non-black) 97 mL/min/{1.73_m2} Normal >60 [employer] Work Phone: [phone] Glucose 87 mg/dL Normal 70-110 [employer] Work Phone: [phone] Lab Report: [facility]Con 01-14-2014 Erythrocytes (RBC) 5.03 10*6/uL Normal 4.2-5.4 [employer] Work Phone: MCH 29.2 pg Normal 27.0-32.0 [facility] Work Phone: [phone] MCHC 34.7 G/GL Normal 32-36 [facility] Work Phone: [phone] MCV 84.3 fL Normal 81-99 [facility] Work Phone: [phone] PMV by Ayanna 9.3 fL Normal 6.2-12.0 [facility] Work Phone: [phone] External Other: [facility]erred [facility] [employer] 01-08-2014 Patient's prefered method of contact secmsg Invalid Interpretation Code [facility] Work Phone: [phone] Vital Signs Date Time Vital Sign Value Performing Clinician Joi sabillon 03-20-2022 15:51-0400 Body height 162.[address] Marcus Bolden Work Phone: [facility] Work Phone: 03-20-2022 15:51-0400 Body mass index (BMI) [Ratio] 35.3 kg/m2 Dr. Marcus Bolden Work Phone: [facility] Work Phone: 03-20-2022 15:51-0400 Body weight 93.[address] Marcus Bolden Work Phone: [facility] Work Phone: 03-20-2022 15:51-0400 Diastolic blood pressure 60 mm[Hg] Dr. Marcus Bolden Work Phone: [facility] Work Phone: 03-20-2022 15:51-0400 Heart rate 60 /min Dr. Marcus Bolden Work Phone: [facility] Work Phone: 03-20-2022 15:51-0400 Respiratory rate 16 /min Dr. Marcus Bolden Work Phone: [facility] Work Phone: 03-20-2022 15:51-0400 Systolic blood pressure 120 mm[Hg] Dr. Marcus Bolden Work Phone: [facility] Work Phone: 02-19-2017 13:13-0400 BMI (Body Mass Index) 33.3 kg/m2 [facility] Work Phone: 02-19-2017 13:13-0400 BP Diastolic 64 mm[Hg] [facility] Work Phone: 02-19-2017 13:13-0400 BP Systolic 110 mm[Hg] [facility] Work Phone: 02-19-2017 13:13-0400 Height 162.56 cm [facility] Work Phone: 02-19-2017 13:13-0400 Pulse (Heart Rate) 64 /min [facility] Work Phone: 02-19-2017 13:13-0400 Respiratory Rate 16 /min [facility] Work Phone: 02-19-2017 13:13-0400 Weight 88 kg [facility] Work Phone: 02-21-2016 15:00-0400 BSA (Body Surface Area) 1.84 m2 [facility] Work Phone: 01-08-2014 09:54-0400 Height 162.56 cm [facility] Work Phone: Encounters Encounter Date Encounter Type Care Provider Facility Start: 01-20-2025 End: 01-20-[address] Kyle Bolden MD -Laboratory Work Phone: Start: 01-20-2025 Registered [facility] -Laboratory Work Phone: Start: 01-20-2025 End: 01-20-[address] Kyle Bolden MD Work Phone: -Laboratory Start: 01-20-2025 End: 01-20-2025 ambulatory Kyle Bolden Facility:[facility] Start: 11-24-2024 End: 11-24-[address] Kyle Bolden MD -Laboratory Work Phone: Start: 11-24-2024 End: 11-24-2024 ambulatory Kyle Bolden Facility:[facility] Start: 09-22-2024 End: 09-22-[address] Kyle Bolden MD Work Phone: [facility] Work Phone: Start: 09-22-2024 End: 09-22-[address] Kyle Bolden MD -Laboratory Work Phone: Start: 09-22-2024 End: 09-22-2024 ambulatory Kyle Bolden Facility:[facility] Start: 07-01-2024 End: 07-01-[address] Kyle Bolden MD -Laboratory Work Phone: Start: 07-01-2024 End: 07-01-2024 ambulatory Kyle Bolden Facility:[facility] Start: 05-20-2024 End: 05-20-2024 ambulatory Kyle Bolden Facility:[facility] Start: 04-29-2024 End: 04-29-2024 ambulatory Whit Lindo MRI MANAGER Facility:[facility] Start: 03-31-2024 End: 04-01-2024 ambulatory Whit Wongs MRI MANAGER Facility:[facility] Start: 04-27-2023 End: 04-27-2023 ambulatory [facility] Work Phone: Start: 04-27-2023 End: 04-27-2023 Patient encounter procedure [facility] Work Phone: Start: 12-19-2022 End: 12-19-2022 ambulatory [facility] Work Phone: Start: 12-19-2022 End: 12-19-2022 Patient encounter procedure [facility] Start: 12-14-2022 Registered [facility] Start: 04-24-2022 End: 04-24-[address] Marcus Bolden Work Phone: [facility] Work Phone: Start: 04-24-2022 End: 04-24-[address] Marcus Bolden Work Phone: [facility] Start: 04-17-2022 End: 04-17-[address] Marcus Bolden Work Phone: [facility] Work Phone: Start: 04-17-2022 End: 04-17-[address] Marcus Bolden Work Phone: [facility] Start: 03-20-2022 End: 03-20-[address] Marcus Bolden Work Phone: [facility] Start: 01-30-2022 End: 01-30-[address] Marcus Bolden Work Phone: [facility] Procedures Date Procedure Procedure Detail Performing Clinician Start: 01-20-2025 Serum inorganic phos phate measurement Dr. Kyle Bolden MD Work Phone: Start: 01-20-2025 Urnls dip stick/tabl et reagent auto microscopy Dr. Kyle Bolden MD Work Phone: Start: 04-27-2023 Screening mammography Start: 12-19-2022 Plain chest X-ray Start: 04-24-[address] Marcus Bolden Work Phone: Start: 04-17-2022 Screening mammography Jonathan Bolden Work Phone: Start: 02-19-2017 End: 02-19-2017 Follow Up Appt 1 year Scottie Castillo Start: 02-19-2017 End: 02-19-2017 PFM Scottie Melgar MD Start: 02-21-2016 End: 02-21-2016 Follow Up Appt 1 year Scottie Castillo Start: 02-21-2016 End: 02-21-2016 PFM Scottie Melgar MD Start: 02-22-2015 End: 02-23-2015 Documentation [...] Date Care Activity Detail Author Start: 12-19-2022 [facility] Start: 02-20-2018 End: 02-20-2018 Appointment Appointment [facility] Work Phone: Start: 02-19-2017 End: 02-19-2017 Appointment Appointment [facility] Work Phone: Start: 02-19-2017 End: 02-19-2017 Follow Up Appt 1 year Follow Up Appt 1 year [facility] Work Phone: Start: 02-19-2017 End: 02-19-2017 PFM PFM [facility] Work Phone: Start: 02-21-2016 End: 02-21-2016 Follow Up Appt 1 year Follow Up Appt 1 year [facility] Work Phone: Start: 02-21-2016 End: 02-21-2016 PFM PFM [facility] Work Phone: Start: 02-22-2015 End: 02-22-2015 Follow Up Appt 1 year Follow Up Appt 1 year [facility] Work Phone: Start: 02-22-2015 End: 02-22-2015 PFM PFM [facility] Work Phone: Start: 07-30-2014 End: 02-01-2017 Follow Up Appt 6 months Follow Up Appt 6 months [facility] Work Phone: Start: 07-30-2014 End: 02-01-2017 PFM PFM [facility] Work Phone: Start: 04-29-2014 End: 05-13-2014 *BMP *BMP [facility] Work Phone: Start: 04-29-2014 End: 04-29-2014 Follow Up Appt 3 months Follow Up Appt 3 months [facility] Work Phone: Start: 04-29-2014 End: 04-29-2014 PFM PFM [facility] Work Phone: Start: 01-29-2014 End: 01-29-2014 Follow Up Appt Other Follow Up Appt Other [facility] Work Phone: Start: 01-29-2014 End: 01-29-2014 PFM PFM [facility] Work Phone: Start: 01-08-2014 End: 01-08-2014 Echocardiography Echocardiogram (complete) [facility] Work Phone: Start: 01-08-2014 End: 02-01-2017 Electrocardiogram, complete EKG (In office) [facility] Work Phone: Start: 01-08-2014 End: 02-01-2017 Follow Up Appt 3 months Follow Up Appt 3 months [facility] Work Phone: Start: 01-08-2014 End: 02-01-2017 Follow Up Appt Other Follow Up Appt Other [facility] Work Phone: Start: 01-08-2014 End: 02-01-2017 PFM PFM [facility] Work Phone: Start: 01-08-2014 End: 01-08-2014 Remote 30 day ecg rev/report 30 Day Holter Monitor [facility] Work Phone: Start: 01-08-2014 End: 01-08-2014 Tilt table evaluation Tilt Table Test [facility] Work Phone: Erythropoietin (EPO) [Units/volume] in Serum or Plasma [facility] JAK2 gene [id number] [Presence] in Blood or Tissue by Molecular genetics method [facility] Immunizations Immunization Date Immunization Notes Care Provider Fa [facility] 05-07-2024 influenza, seasonal, injectable, preservative free Dr. Kyle Bolden MD Work Phone: [facility] 05-03-2023 influenza, injectabl e, quadrivalent, preservative free Dr. Kyle Bolden MD Work Phone: [facility] 04-26-2022 influenza, injectabl e, quadrivalent, preservative free [facility] 04-26-2022 influenza, seasonal, injectable Dr. Marcus Bolden Work Phone: [facility] 05-03-2021 influenza, injectabl e, quadrivalent, preservative free [facility] 05-03-2021 influenza, seasonal, injectable Dr. Marcus Bolden Work Phone: [facility] 08-17-2020 Covid (Moderna) Dr. Noelle Bolden Work Phone: [facility] 07-20-2020 Danielid (Moderna) Dr. Noelle Boledn Work Phone: [facility] 04-14-2020 influenza, injectabl e, quadrivalent, preservative free [facility] 04-14-2020 influenza, seasonal, injectable Dr. Marcus Bolden Work Phone: [facility] 04-29-2019 influenza, injectabl e, quadrivalent, preservative free [facility] 04-29-2019 influenza, seasonal, injectable Dr. Marcus Bolden Work Phone: [facility] 04-22-2018 influenza, injectabl e, quadrivalent, preservative free [facility] 04-22-2018 influenza, seasonal, injectable Dr. Marcus Bolden Work Phone: [facility] 04-04-2017 influenza, injectabl e, quadrivalent, preservative free [facility] 04-04-2017 influenza, seasonal, injectable Dr. Marcus Bolden Work Phone: [facility] 04-24-2016 influenza, injectabl e, quadrivalent, preservative free [facility] 04-24-2016 influenza, seasonal, injectable Dr. Marcus Bolden Work Phone: [facility] 05-24-2015 influenza, injectabl e, quadrivalent, preservative free [facility] 05-24-2015 influenza, seasonal, injectable Dr. Marcus Bolden Work Phone: [facility] 04-08-2014 influenza, injectabl e, quadrivalent, preservative free [facility] 04-08-2014 influenza, seasonal, injectable Dr. Marcus Bolden Work Phone: [facility] 07-17-[address] Marcus Bolden Work Phone: [facility] Payers Date Payer Category Payer Self-pay [id number] 2023 Unknown [id number] 2013 Unknown [id number] Unknown [id number] 2.16.8 [id number] Unknown [id number] 2.16.8 [id number] Unknown [id number] 2.16.8 [id number] Unknown [id number] 2.16.8 [id number] Unknown [id number] 2.16.8 [id number] Unknown [id number] 2.16.8 [id number] Unknown [id number] 2.16.8 [id number] Unknown [id number] 2.16.8 [id number] Unknown [id number] 2.16.8 [id number] Social History Date Type Detail Facility Start: 03-20-2022 Tobacco smoking stat [facility] Unknown if ever smoked [facility] Start: 1970 Sex Assigned At Female [facility] Start: 03-31-2024 Tobacco smoking stat [facility] Never smoked tobacco (finding) [facility] Start: 09-27-2024 Sex Female (finding) [facility] Chief complaint+Reason for visit Narrative Note Date & Type Note Facility Chief complaint+Reason for visit Narrative Reason for Visit Nonrheumatic mitral (valve) prolapse Premature atrial contractions Premature ventricular contraction Syncope, vasovagal [facility] Work Phone: Chief complaint+Reason for visit Narrative Note Date & Type Note Facility Chief complaint+Reason for visit Narrative Reason for Visit Nonrheumatic mitral (valve) prolapse Premature atrial contractions Premature ventricular contraction Syncope, vasovagal [facility] Work Phone: Evaluation note Note Date & Type Note Facility Evaluation note Diagnosis Onset Date Nonrheumatic mitral (valve) prolapse acute Premature atrial contractions acute Premature ventricular contraction acute Syncope, vasovagal acute [facility] Work Phone: Evaluation note Note Date & Type Note Facility Evaluation note No assessment information availa ble [facility] Work Phone: Reason for referral (narrative) Note Date & Type Note Facility Reason for referral (narrative) No reason for referral information available [facility] Work Phone: Family History No Family [...] No January 05, 2021 2:00pm [employer] No January 05 2:00pm Chief Complaint and Reason for Visit Chief Complaint [employer] Chief Complaint SCREENING Chief Complaint Admit Date E ORDERS July 01, 2024 5:58am INT LABS September 22, 2024 6:0 1am Chief Complaint Admit Date INT LABS November 24, 2024 6:04a 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 Kyle Bolden MD Family Provider Active Dr. Kyle Bolden MD Primary Care Provider Acti ve Team Status: Inactive Member Role/Relationship Status Dates Dr. Kyle Bolden MD Primary Care Provider Acti ve Start: November 24, 2024 End: November 24, 2024 Dr. Kyle Bolden MD Attending Provider Active Start: November 24, 2024 End: November 24, 2024 Dr. Kyle Bolden MD Referring Provider Active Start: November 24, 2024 End: November 24, 2024 Team Status: Active Member Role/Relationship Status Dates Dr. Kyle Bolden MD Primary Care Provider Acti ve Start: January 20, 2025 Health Risk Assessment Attending Provider Active Start: January 20, 2025 Health Risk Assessment Referring Provider Active Start: January 20, 2025 Team Status: Inactive Member Role/Relationship Status Dates Dr. Kyle Bolden MD Primary Care Provider Acti ve Start: January 20, 2025 End: January 20, 2025 Dr. Kyle Bolden MD Attending Provider Active Start: January 20, 2025 End: January 20, 2025 Dr. Kyle Bolden MD Referring Provider Active Start: January 20, 2025 End: January 20, 2025 INFORMATION SOURCE (unrecogn ized section and content) DATE CREATED AUTHOR 01/27/2025 [facility] FOR RECORDS PERTAINING TO PATIENTS WHO ARE [...] BE BASED ON THE PRIMARY CLINICAL RECORDS. [employer] provides no warranty or guarantee of the accuracy or completeness of information in this document.
[2025-03-04 08:07] LABS: Free T3 2.4 pg/mL (2.18-3.98)
== END | disposition home or self-care (01) ==
LOC: LAB 06:02
PROVIDERS: PCP Family Medicine; Referring Provider Family Medicine; Visit Provider Family Medicine
DX: E03.9 Hypothyroidism, unspecified (principal)
CPT/HCPCS: 36415; 84439; 84443; 84481

== ENCOUNTER → 2025-03-28 | Outpatient (CLI) | payer OTHER, SELFPAY ==
--- OUTSIDE RECORDS SUMMARY | 2025-03-30 12:01 | XMS RPT_ITS | CCD ---
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 Marcus Bolden Primary Care Provider [phone] Dr. Marcus Bolden Referring Provider МАРИНА Raymond Attending Provider Dr. Scottie Melgar Attending Provider [phone] Yuan ROGERS, Dr. Wright Primary Care Provider Yuan ROGERS, Dr. Wright Attending Provider Yuan ROGERS, Dr. Wright Referring Provider Yuan ROGERS, Dr. Wright Primary Care Provider Yuan ROGERS, Dr. Wright Attending Provider Yuan ROGERS, Dr. Wright Referring Provider Assessment, Health Risk Attending Provider Unava ilable Assessment, Health Risk Referring Provider Unava ilable Kyle Bolden Primary Care Unavailable Kyle Bolden Attending Unavailable Kyle Bolden Referring Unavailable Kyle Bolden Primary Care Unavailable Kyle Bolden Attending Unavailable Kyle Bolden Referring Unavailable Kyle Bolden Attending Unavailable Kyle Bolden Referring Unavailable Kyle Bolden Primary Care Unavailable Belgica BULB GROWER, Whit Attending Unavailable Catarina BULB GROWER, Whit Referring Unavailable Kyle Bolden Primary Care Unavailable [place]gica BULB GROWER, Whit Referring Unavailable Kyle Bolden Primary Care Unavailable Catarina BULB GROWER, Whit Attending Unavailable Yuan, Christophsylvain Primary Care Unavailable Kyle Bolden Attending Unavailable Kyle Bolden Referring Unavailable [facility] Unavailable Assessment, Health Risk Attending Unavaila ble Assessment, Health Risk Referring Unavaila ble Joe Berman Attending Unavailable Kyle Bolden Referring Unavailable [facility] Unavailable Whit Lindo NP Attending Unavailable [facility] Unavailable Kyle Bolden Referring Unavailable [facility] Unavailable Kyle Bolden Attending Unavailable Kyle Bolden Referring [facility]available [facility] Unavailable Kyle Bolden Attending Unavailable Kyle Bolden Referring Unavailable Allergies Allergy Classification Reported Allergen(s) Allergy Type Date of Onset Reaction(s) Facility (2 sources) acetaminophen / traMADol drug allergy 4 [facility] [employer] Work Phone: (4 sources) erythromycin drug allergy 4 [facility] [employer] Work Phone: (7 sources) traMADol Drug Allergy 2 felt as if she was going to pass out [facility] (1 source) traMADol Drug Allergy 5 [facility] Repository Medications Current Medications Medication Drug Class(es) Dates Sig (Normalized) Sig (Original) amoxicillin 875 mg / clavulanate 125 mg oral tablet (3 sources) Penicillin-class Antibacterial Start: 06-16-2024 Amoxicillin-Pot Clavulanate 875-125 mg tablet Active 1 {tbl} PO Q12H 20 0 June 16, 2024 1:00am cetirizine hydrochloride 10 mg oral capsule (7 sources) Histamine-1 Receptor Antagonist Start: 01-05-2021 take 1 capsule by mouth once daily as needed Cetirizine (Zyrtec) 10 mg Capsule Active 10 mg PO DAILY as needed for ALLERGIES January 05, 2021 12:00am cholecalciferol 0.025 mg oral capsule (14 sources) Vitamin D Start: 03-17-2021 take 1 [...] 2020 3:03pm Ciprofloxacin Hcl 0.3 % drops (2 sources) Start: 11-28-2024 Ciprofloxacin Hcl 0.3 % drops Active 0 OPHTHALMIC .COMPLEX 5 1 November 28, 2024 12:00am put 1-2 drps in affected eye(s) every 2hr up to 8 times/day x2days; then 4 times/day x5days ophthalmic (eye) fluticasone propionate 0.05 mg/actuat metered dose nasal spray (7 sources) Corticosteroid Start: 01-05-2021 Fluticasone Pr opionate (Flonase Allergy Relief) 50 mcg/actuation [place],Suspension Active 1 NMA INTRANASAL DAILY as needed for Nasal Congestion January 05, 2021 12:00am Start: 01-05-2021 Fluticasone Pr opionate (Flonase Allergy Relief) 50 mcg/actuation [place],Suspension Active 1 SPRAY INTRANASAL DAILY January 05, 2021 12:00am ibuprofen 600 mg oral tablet (3 sources) Nonsteroidal Anti-inflammatory Drug Start: 10-18-2023 take 1 tablet by mouth every twelve hours as needed for pain Ibuprofen 600 mg tablet Active 600 mg PO Q12H as needed for pain 60 0 October 18, 2023 12:00am Completed/Discontinued Medications Medication Drug Class(es) Dates Sig (Normalized) Sig (Original) amoxicillin 875 mg oral tablet (7 sources) Penicillin-class Antibacterial Start: 7 End: 8 take 1 tablet by mouth twice daily Amoxicillin 875 mg tablet Discontinued 875 mg PO TWICE A DAY 20 0 June 23, 2017 1:00am February 18, 2018 10:44am azithromycin 250 mg oral tablet (3 sources) Macrolide Antimicrobial Start: 3 End: 4 take 2-5 tablets by mouth once daily Azithromycin 250 mg tablet Discontinued 0 PO .COMPLEX 6 0 July 06, 2023 1:00am March 31, 2024 10:11am take 500 mg today (day 1), then 250 mg for 4 days (days 2-5) PO calcium ascorbate 500 mg oral tablet (14 sources) Start: 1 End: 3 take 1 [...] One tablet by mouth daily FLUDROCORTISONE ACETATE [id number] Scottie Melgar MD methylPREDNISolone 4 mg oral tablet (7 sources) Corticosteroid Start: 0 End: 0 take 1 tablet by mouth once Methylprednisolone (Medrol (Carlos)) 4 mg tablets,dose pack Discontinued 0 PO per package directions November 27, 2019 12:00am March 17, 2020 3:03pm PO PER PKG DIR montelukast 10 mg oral tablet (3 sources) Leukotriene Receptor Antagonist Start: 3 End: 4 take 1 tablet by mouth once daily in the evening Montelukast (Singulair) 10 mg tablet Discontinued 10 mg PO EVERY EVENING July 06, 2023 1:00am March 31, 2024 10:12am pantoprazole 40 mg delayed release oral tablet (3 sources) Proton Pump Inhibitor Start: 4 End: 4 take 1 tablet by mouth once daily Pantoprazole (Protonix) 40 mg tablet,delayed release (DR/EC) Discontinued 40 mg PO DAILY October 18, 2023 12:00am March 31, 2024 10:12am valACYclovir 1000 mg oral tablet (7 sources) Herpesvirus Nucleoside Analog DNA Polymerase Inhibitor, Herpes Simplex Virus Nucleoside Analog DNA Polymerase Inhibitor, Herpes Zoster Virus Nucleoside Analog DNA Polymerase Inhibitor Start: 0 End: 0 Valacyclovir (Valtrex) 1 gram tablet Discontinued 1000 mg PO THREE TIMES A DAY November 27, 2019 12:00am March 17, 2020 3:03pm Zinc (14 sources) Start: End: 3 take 1 tablet by mouth [...] Date Documented Da te Episodic/Chronic Cardiac dysrhythmias (18 sources) Multiple premature ventricular complexes; Translations: [Ventricular premature depolarization] Chronic Cardiac dysrhythmias (3 sources) Palpitations; Translations: [Palpitations] 05-24-2023 Episodic Genitourinary symptoms and ill-defined conditions (2 sources) Urgency of urination; Translations: [Unspecified abnormal findings in urine] Onset: 03-28-2025 Episodic Headache; including migraine (7 sources) Headache; Translations: [Headache] 08-11-2021 Episodic Heart valve disorders (9 sources) Mitral valve prolapse; Translations: [Nonrheumatic mitral (valve) prolapse] Chronic Immunizations and screening for infectious disease (8 sources) Contact with or exposure to other viral diseases; Translations: [Exposure to COVID-19 virus] 08-11-2021 Episodic Menopausal disorders (3 sources) Menopausal syndrome; Translations: [Menopausal and female climacteric states] 03-31-2024 Chronic Comment on above: [employer] Nonmalignant breast conditions (3 sources) Fibrocystic disease of breast; Translations: [Diffuse cystic mastopathy of unspecified breast] 03-31-2024 Chronic Nonspecific chest pain (7 sources) Chest pain; Translations: [Chest pain, unspecified] 07-10-2018 Episodic Syncope (11 sources) Vasovagal syncope; Translations: [Syncope and collapse] Onset: 12-31-2013 12-31-2013 Episodic Thyroid disorders (1 source) Hypothyroidism, unspecified; Translations: [Hypothyroidism, unspecified] Onset: 03-16-2025 Chronic Viral infection (7 sources) Herpes zoster; Translations: [Zoster without complications] [...] Test Name Value Interpretation Reference Range Facility Urgent Care Visit Reporton 0 03-28-2025 Urgent Care Visit Report [facility] [address], [address] [place] [address] OFFICE VISIT Date of Service: 03/28/25 MR#: [id number] Acct: [id number] Name: JANICE SO Rep #: [id number] : 1970 Provider: МАРИНА Obrien Age/Sex: 54/F Location: [facility] Status: Signed Intake Vital Signs 03/31/24 10:06 03/28/25 13:20 Height 5 ft 4 in BP 148/82 H Blood Pressure Location Rt brachial Position Sitting Respiration 16 Pulse 60 Pulse Source NIBP Temp 98.1 F Temp Source Oral Pulse Oximetry (%) 99 Oxygen Delivery Method room air Intake Visit Reasons: CONCERN FOR UTI Chief Complaint: urinary urgency, frequency, pubic pressure Bdr Required: No Is patient in pain?: No Allergies tramadol (From Ultracet) Allergy (Severe, Verified 03/28/25 13:20) felt as if she was going to pass out Medications ???Medication ???Instructions ???Recorded ???Confirmed ???Type cetirizine 10 mg capsule (Zyrtec) 10 mg PO DAILY PRN ALLERGIES 12/0903/31/24 History fluticasone propionate 50 1 spray intranasal DAILY PRN Nasal 01/05/21 03/31/24 History mcg/actuation nasal Congestion spray,suspension (Flonase Allergy Relief) cholecalciferol (vitamin D3) 25 25 mcg PO DAILY 03/17/21 03/31/24 History mcg (1,000 unit) capsule ibuprofen 600 mg tablet 600 mg PO Q12H PRN pain #60 tabs 0 10/18/23 03/31/24 Rx sulfamethoxazole 800 1 tab PO BID 3 days #6 tabs 03/28/25 Rx mg-trimethoprim 160 mg tablet Is last menstrual period known: No Post menopausal: Yes Patient : No Have you fallen in the past year?: No Nurse's Note: urinary urgency, frequency, pubic pressure x 3 days. denies back pain, fever. 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 Patient states that she has been experiencing urinary urgency, frequency, and suprapubic fullness. Patient denies symptoms of fever, back pain, nausea, and vomiting. She states that she does not have a history of recurrent UTIs and has not started any new medications or taken corticosteroids as of late. Patient did complete a urine test from the pharmacy but states that the results were inconclusive prompting her visit today. Patient is not currently utilizing any treatment for this issue at this time. ROS Const Constitutional: No body ache, chills, fatigue or fever(s) Gastro GI: No abdominal pain, change in bowel habits, diarrhea or vomiting Genitourinary-Femal e: Positive for urinary frequency, urinary urgency and suprapubic fullness; No painful urination or blood in urine Endo Endocrine: No fatigue Exam Const General: healthy appearing and no acute distress GI Palpation: soft, no guarding and nontender Other: No CVA tenderness bilaterally Results POC Urinalysis Dip (Clinic) Office Urine Color Yellow Last Edit by Lesvia Paiz on 03/28/25 13:27 Office Urine Clarity Clear Last Edit by Lesvia Paiz on 03/28/25 13:27 Office Urine Glucose Negative Last Edit by Lesvia Paiz on 03/28/25 13:27 Office Urine Ketones Negative Last Edit by Lesvia Paiz on 03/28/25 13:27 Off Ur Spec [place] 1.010 Last Edit by Lesvia Paiz on 03/28/25 13:27 Office Urine pH 6.0 Last Edit by eLsvia Paiz on 03/28/25 13:27 Office Urine Bilirubin Negative Last Edit by Lesvia Paiz on 03/28/25 13:27 Office Urine Urobilinogen Negative Last Edit by Lesvia Paiz on 03/28/25 13:27 Office Urine Blood Trace Last Edit by Lesvia Paiz on 03/28/25 13:27 (more content not included)... Normal [facility] Free T3on 03-04-2025 Free T3 [Mass/Vol] 2.4 pg/mL Normal 2.18-3.98 [facility] Comment on above: Order Comment: Order Date: 01/23/25 Order Info: 3051-0 - T3F Order Info: 3 - TSH Order Info: 3024-01 - T4F Performed By: #### L 501.00789, L501.9520, L506.0400 #### [facility] [address] [place], [place], [address] Free F3Ghuresn By: Adrian Bolden on 03-04-2025 Free T3 [Mass/Vol] 2.4 pg/mL 2.18-3.98 [facility] T4 Free Directon 03-04-2025 T4 FREE DIRECT 0.70 ng/dL Low 0.76-1.46 [facility] Comment on above: Order Comment: Order Date: 01/23/25 Order Info: 3051-0 - T3F Order Info: 3 - TSH Order Info: 3024-01 - T4F Performed By: #### L 501.32366, L501.9520, L506.0400 #### [facility] [address] [place], [place], [address] T4 freeOrdered By: Adrian Bolden on 03-04-2025 Free T4 [Mass/Vol] 0.70 ng/dL Low 0.76-1.46 [facility] TSH DL <= 0.005 mIU/L QnOrde red By: Kyle Bolden on 03-04-2025 TSH Qn 0.705 uIU/mL 0.300-4.200 [facility] Thyroid Stim Hormone (TSH)on 03-04-2025 TSH 0.705 uIU/mL Normal 0.300-4.200 [facility] Comment on above: Order Comment: Order Date: 01/23/25 Order Info: 3051-0 - T3F Order Info: 3 - TSH Order Info: 3024-01 - T4F Performed By: #### L 501.50040, L501.9520, L506.0400 #### [facility] [address] [place], [place], [address] Thyroid Peroxidase ABon 07- THYR PEROX AB 135 IU/mL High 0-34 [facility] Comment on above: Result Comment: Perf ormed at: - [facility] [address] [id number] Commercial Driver: Feliberto Gregory PhD, Phone: [phone] Performed By: #### L [id number] #### [facility] [address] [place], [address] Absolute lymphocyte countOrd ered By: HEALTH ASSESSMENT on 01-20-2025 Lymphocytes Auto (Unsp spec) [#/Vol] 1.24 10*3/uL 0.83-4.51 [facility] Absolute neutrophil countOrd ered By: HEALTH ASSESSMENT on 01-20-2025 Neutrophils (Bld) [#/Vol] 2.3 10*3/uL 2.0-7.7 [facility] Absolute nucleated red blood cell countOrdered By: HEALTH ASSESSMENT on 01-20-2025 Nucleated RBC (Bld) [#/Vol] 0.00 10*3/uL 0-5 [facility] Anion gap in Serum or Plasma Ordered By: HEALTH ASSESSMENT on 01-20-2025 Anion gap [Moles/Vol] 11 mmol/L 5-15 [facility] BUN/creatinine ratioOrdered By: HEALTH ASSESSMENT on 01-20-2025 Urea nitrogen/Creatinine [Mass ratio] 30.2 mg/mg High 10-20 [facility] Bilirubin Test strip Ql (U)O rdered By: HEALTH ASSESSMENT on 01-20-2025 Bilirubin Ql (U) Negative Negative [facility] Bilirubin directOrdered By: HEALTH ASSESSMENT on 01-20-2025 Bilirubin.direct [Mass/Vol] 0.18 mg/dL 0.00-0.30 [facility] Bilirubin, totalOrdered By: HEALTH ASSESSMENT on 01-20-2025 Bilirubin [Mass/Vol] 0.44 mg/dL 0.00-1.30 [facility] CBC, Employeeon 01-20-2025 Absolute Lymph 1.24 X10 3/uL Normal 0.83-4.51 [facility] Comment on above: Performed By: #### L 100.0200, L400.0100, L500.2900 ####[facility] [address] [place], [address] Absolute Neut 2.3 X10 3/uL Normal 2.0-7.7 [facility] Comment on above: Performed By: #### L 100.0200, L400.0100, L500.2900 ####[facility] [address] [place], [address] Basophils/100 WBC (Bld) 0.5 % Normal 0-1 [facility] Comment on above: Performed By: #### L 100.0200, L400.0100, L500.2900 ####[facility] [address] [place], [address] Eosinophils/100 WBC (Bld) 3.9 % Normal 0-5 [facility] Comment on above: Performed By: #### L 100.0200, L400.0100, L500.2900 ####[facility] [address] [place], [address] Erythrocyte distribution width (RBC) [Ratio] 12.2 % Normal 11.6-14.6 [facility] Comment on above: Performed By: #### L 100.0200, L400.0100, L500.2900 ####[facility] [address] [place], [address] Hematocrit (Bld) [Volume fraction] 42.9 % Normal 37-47 [facility] Comment on above: Performed By: #### L 100.0200, L400.0100, L500.2900 ####[facility] [address] [place], [address] Hemoglobin (Bld) [Mass/Vol] 14.5 g/dL Normal 12.0-15.0 [facility] Comment on above: Performed By: #### L 100.0200, L400.0100, L500.2900 ####[facility] [address] [place], [address] Lymphocytes/100 WBC (Bld) 30.5 % Normal 19-41 [facility] Comment on above: Performed By: #### L 100.0200, L400.0100, L500.2900 ####[facility] [address] [place], [address] MCH (RBC) [Entitic mass] 27.3 pg Normal 27.0-32.0 [facility] Comment on above: Performed By: #### L 100.0200, L400.0100, L500.2900 ####[facility] [address] [place], [address] MCHC (RBC) [Mass/Vol] 33.8 g/dL Normal 32-36 [facility] Comment on above: Performed By: #### L 100.0200, L400.0100, L500.2900 ####[facility] [address] [place], [address] MCV (RBC) [Entitic vol] 80.8 fL Low 81-99 [facility] Comment on above: Performed By: #### L 100.0200, L400.0100, L500.2900 ####[facility] [address] [place], [address] Monocytes/100 WBC (Bld) 9.4 % Normal 0-10 [facility] Comment on above: Performed By: #### L 100.0200, L400.0100, L500.2900 ####[facility] [address] [place], [address] Neutrophils/100 WBC (Bld) 55.5 % Normal 47-70 [facility] Comment on above: Performed By: #### L 100.0200, L400.0100, L500.2900 ####[facility] [address] [place], [address] NRBC # 0.00 10 3/uL Normal 0-5 [facility] Comment on above: Performed By: #### L 100.0200, L400.0100, L500.2900 ####[facility] [address] [place], [address] Nucleated RBC (Bld) [#/Vol] 0 10*3/uL Normal 0-5 [facility] Comment on above: Performed By: #### L 100.0200, L400.0100, L500.2900 ####[facility] [address] [place], [address] Platelet mean volume (Bld) [Entitic vol] 9.8 fL Normal 6.2-12.0 [facility] Comment on above: Performed By: #### L 100.0200, L400.0100, L500.2900 ####[facility] [address] [place], [address] Platelets (Bld) [#/Vol] 233 10*3/uL Normal 150-450 [facility] Comment on above: Performed By: #### L 100.0200, L400.0100, L500.2900 ####[facility] [address] [place], [address] RBC (Bld) [#/Vol] 5.31 10*6/uL Normal 4.2-5.4 [facility] Comment on above: Performed By: #### L 100.0200, L400.0100, L500.2900 ####[facility] [address] [place], [address] RDW SD 35.6 fl Normal 35.1-43.9 [facility] Comment on above: Performed By: #### L 100.0200, L400.0100, L500.2900 ####[facility] [address] [place], [address] WBC (Bld) [#/Vol] 4.1 10*3/uL Low 4.4-11.0 [facility] Comment on above: Performed By: #### L 100.0200, L400.0100, L500.2900 ####[facility] [address] [place], [place], [id number] Calculated very low density lipoprotein (VLDL) cholesterol measurementOrdered By: HEALTH ASSESSMENT on 01-20-2025 Calculated very low density lipoprotein (VLDL) cholesterol measurement 15 mg/dL 5-40 [facility] Carbon dioxide, total [Moles /volume] in Central venous bloodOrdered By: HEALTH ASSESSMENT on 01-20-2025 CO2 [Moles/Vol] 25.1 mmol/L 21.0-32.0 [facility] Chloride assayOrdered By: HE ALTH ASSESSMENT on 01-20-2025 Chloride [Moles/Vol] 103 mmol/L 98-108 [facility] [employer] Cholesterol in LDL [Mass/Vol] 92 mg/dL Normal 0-130 [facility] Comment on above: Performed By: #### L 100.0200, L400.0100, L500.2900 ####[facility] [address] [place], [place], [id number] Erythrocyte distribution wid th ratioOrdered By: HEALTH ASSESSMENT on 01-20-2025 Erythrocyte distribution width (RBC) [Ratio] 12.2 % 11.6-14.6 [facility] Erythrocyte distribution wid th standard deviationOrdered By: HEALTH ASSESSMENT on 01-20-2025 Erythrocyte distribution width (RBC) [Ratio] 35.6 fl 35.1-43.9 [facility] Glomerular filtration rate ( GFR) estimation/1.73 sq m using serum, plasma, or whole bOrdered By: HEALTH ASSESSMENT on 01-20-2025 GFR/1.73 sq M.predicted among non-blacks MDRD (S/P/Bld) [Vol rate/Area] 105 mL/min/{1.73_m2} >60 [facility] Comment on above: mL/min/1.73m2 CKD-EP I Creatinine Equation (2020) Hematocrit Auto (Bld) [Volum e fraction]Ordered By: HEALTH ASSESSMENT on 01-20-2025 Hematocrit (Bld) [Volume fraction] 42.9 % 37-47 [facility] Hemoglobin measurementOrdere d By: HEALTH ASSESSMENT on 01-20-2025 Hemoglobin (Bld) [Mass/Vol] 14.5 g/dL 12.0-15.0 [facility] Ketones Test strip Ql (U)Ord ered By: HEALTH ASSESSMENT on 01-20-2025 Ketones Ql (U) Negative Negative [facility] Laboratory - Chemistry and C hemistry - challengeOrdered By: HEALTH ASSESSMENT on 01-20-2025 AST [Catalytic activity/Vol] 15 U/L <32 [facility] Lactate dehydrogenase (LDH) measurementOrdered By: HEALTH ASSESSMENT on 01-20-2025 LDH [Catalytic activity/Vol] 158 U/L 84-246 [facility] MCV (mean corpuscular volume ) determinationOrdered By: HEALTH ASSESSMENT on 01-20-2025 MCV (RBC) [Entitic vol] 80.8 fL Low 81-99 [facility] Mean corpuscular hemoglobin (MCH) determinationOrdered By: HEALTH ASSESSMENT on 01-20-2025 MCH (RBC) [Entitic mass] 27.3 pg 27.0-32.0 [facility] Mean corpuscular hemoglobin concentration (MCHC) determinationOrdered By: HEALTH ASSESSMENT on 01-20-2025 MCHC (RBC) [Mass/Vol] 33.8 g/dL 32-36 [facility] Mean platelet volume determi nationOrdered By: HEALTH ASSESSMENT on 01-20-2025 Platelet mean volume (Bld) [Entitic vol] 9.8 fL 6.2-12.0 [facility] Neutrophil percentageOrdered By: HEALTH ASSESSMENT on 01-20-2025 Neutrophils/100 WBC (Bld) 55.5 % 47-70 [facility] Nitrite Test strip Ql (U)Ord ered By: HEALTH ASSESSMENT on 01-20-2025 Nitrite Ql (U) Negative Negative [facility] Nucleated red blood cell per centageOrdered By: HEALTH ASSESSMENT on 01-20-2025 Nucleated RBC/100 WBC (Bld) [Ratio] 0 % 0-5 [facility] Platelet countOrdered By: HE ALTH ASSESSMENT on 01-20-2025 Platelets (Bld) [#/Vol] 233 10*3/uL 150-450 [facility] Potassium measurement (mass/ volume)Ordered By: HEALTH ASSESSMENT on 01-20-2025 Potassium (Unsp spec) [Mass/Vol] 4.0 mmol/L 3.3-5.1 [facility] [facility] Protein Test strip Ql (U)Ord ered By: HEALTH ASSESSMENT on 01-20-2025 Protein Ql (U) Negative Negative [facility] RBC Auto (Bld) [#/Vol]Ordere d By: HEALTH ASSESSMENT on 01-20-2025 RBC (Bld) [#/Vol] 5.31 10*6/uL 4.2-5.4 [facility] Screening total cholesterol/ high density lipoprotein (HDL) cholesterol ratioOrdered By: HEALTH ASSESSMENT on 01-20-2025 Cholesterol.total/Choles terol in HDL [Mass ratio] 3.00 {ratio} [facility] Serum creatinine measurement (mass/volume)Ordered By: HEALTH ASSESSMENT on 01-20-2025 Creatinine [Mass/Vol] 0.65 mg/dL Low 0.70-1.20 [facility] Serum globulin measurementOr dered By: HEALTH ASSESSMENT on 01-20-2025 Globulin (S) [Mass/Vol] 2.4 g/dL 2.2-4.2 [facility] Serum glucose measurement (m ass/volume)Ordered By: HEALTH ASSESSMENT on 01-20-2025 Glucose [Mass/Vol] 98 mg/dL 70-99 [facility] Serum or plasma alanine eaton otransferase (ALT) measurementOrdered By: HEALTH ASSESSMENT on 01-20-2025 ALT [Catalytic activity/Vol] 11 U/L <35 [facility] Serum or plasma albumin shasta urement (mass/volume)Ordered By: HEALTH ASSESSMENT on 01-20-2025 Albumin [Mass/Vol] 4.2 g/dL 3.5-5.0 [facility] Serum or plasma albumin/glob ulin mass ratioOrdered By: HEALTH ASSESSMENT on 01-20-2025 Albumin/Globulin [Mass ratio] 1.8 {ratio} 0.9-2.4 [facility] Serum or plasma alkaline natali sphatase measurementOrdered By: HEALTH ASSESSMENT on 01-20-2025 ALP [Catalytic activity/Vol] 60 U/L 35-104 [facility] Serum or plasma calcium shasta urement (mass/volume)Ordered By: HEALTH ASSESSMENT on 01-20-2025 Calcium [Mass/Vol] 9.6 mg/dL 7.6-11.0 [facility] Serum or plasma cholesterol in HDL measurement (mass/volume)Ordered By: HEALTH ASSESSMENT on 01-20-2025 Cholesterol in HDL [Mass/Vol] 53 mg/dL >40 [facility] Comment on above: National Cholesterol Education Program (NCEP) guidelines:<40 mg/dL: Low HDL-cholesterol (major risk factor for CHD)>= 60 mg/dL: High HDL-cholesterol (negative risk factor for CHD)HDL-cholesterol is affected by a number of factors, e.g. smoking, exercise, hormones, sex and age. Serum or plasma cholesterol in LDL measurement (mass/volume)Ordered By: HEALTH ASSESSMENT on 01-20-2025 Cholesterol in LDL [Mass/Vol] 92 mg/dL 0-130 [facility] Serum or plasma cholesterol measurement (mass/volume)Ordered By: HEALTH ASSESSMENT on 01-20-2025 Cholesterol [Mass/Vol] 160 mg/dL <201 [facility] Comment on above: Cholesterol level, D esirable <200 mg/dLBorderline high cholesterol 200-239 mg/dLHigh cholesterol >=240 mg/dLRecommendations of the NCEP Adult Treatment Panel for the following risk-cutoff thresholds for the [place] population. Serum or plasma thyroperoxid ase antibody assay (units/volume)Ordered By: Kyle Bolden on 01-20-2025 TPO Ab Qn 135 [IU]/mL High 0-34 [facility] Comment on above: Performed at: [facility] [employer] [address] [id number] Director: Feliberto Gregory PhD, Phone: [phone] Serum or plasma urea nitroge n measurement (mass/volume)Ordered By: HEALTH ASSESSMENT on 01-20-2025 Urea nitrogen [Mass/Vol] 20 mg/dL High 4-19 [facility] Serum or plasma uric acid me asurement (mass/volume)Ordered By: HEALTH ASSESSMENT on 01-20-2025 Urate [Mass/Vol] 4.0 mg/dL 2.6-6.0 [facility] Comment on above: The drugs N-Acetylcy steine and Metamizole may falsely depress this assay. Sodium levelOrdered By: HEAL TH ASSESSMENT on 01-20-2025 Sodium [Moles/Vol] 140 mmol/L 133-145 [facility] T4 Free Directon 01-20-2025 T4 FREE DIRECT 2.10 ng/dL High 0.76-1.46 [facility] Comment on above: Order Comment: Order Date: 07/22/24 Order Info: 3016-3 - TSH Order Info: 3024-01 - T4F Performed By: #### L 506.0400, L501.9520 #### [facility] [address] [place], [place], [address] T4 freeOrdered By: Adrian Bolden on 01-20-2025 Free T4 [Mass/Vol] 2.10 ng/dL High 0.76-1.46 [facility] TSH DL <= 0.005 mIU/L QnOrde red By: Kyle Bolden on 01-20-2025 TSH Qn < 0.005 uIU/mL Low 0.300-4.200 [facility] Thyroid Stim Hormone (TSH)on 01-20-2025 TSH Qn m[IU]/L Low 0.300-4.200 [facility] Comment on above: Order Comment: Order Date: 11/24/24 Order Info: 3016-3 - TSH Order Info: 3024-01 - T4F Performed By: #### L 506.0400, L501.9520 #### [facility] [address] [place], [place], [address] Total proteinOrdered By: HEA [facility] ASSESSMENT on 01-20-2025 Protein [Mass/Vol] 6.6 g/dL 5.9-8.4 [facility] Triglycerides measurementOrd ered By: HEALTH ASSESSMENT on 01-20-2025 Triglyceride [Mass/Vol] 74 mg/dL <199 [facility] Comment on above: The drugs N-Acetylcy steine and Metamizole may falsely depress this assay. Normal range: <150 mg/dLBorderline High: 150-199 mg/dLHigh: 200-499 mg/dLVery High: >500 mg/dL Urinalysis, Employeeon 01-20 BILIRUBIN URINE Negative Normal Negative [facility] Comment on above: Order Comment: Urine , Random Performed By: #### L 100.0200, L400.0100, L500.2900 ####[facility] [address] [place], [address] Clarity (U) Clear Normal Clear [facility] Comment on above: Order Comment: Urine , Random Performed By: #### L 100.0200, L400.0100, L500.2900 ####[facility] [address] [place], [address] Color (U) Yellow Normal Yellow [facility] Comment on above: Order Comment: Urine , Random Performed By: #### L 100.0200, L400.0100, L500.2900 ####[facility] [address] [place], [address] GLUCOSE, UR Normal Normal Normal [facility] Comment on above: Order Comment: Urine , Random Performed By: #### L 100.0200, L400.0100, L500.2900 ####[facility] [address] [place], [address] KETONE UR Negative Normal Negative [facility] Comment on above: Order Comment: Urine , Random Performed By: #### L 100.0200, L400.0100, L500.2900 ####[facility] [address] [place], [address] LEUK ESTERASE Negative Normal Negative [facility] Comment on above: Order Comment: Urine , Random Performed By: #### L 100.0200, L400.0100, L500.2900 ####[facility] [address] [place], [address] Nitrite Ql (U) Negative Normal Negative [facility] Comment on above: Order Comment: Urine , Random Performed By: #### L 100.0200, L400.0100, L500.2900 ####[facility] [address] [place], [address] OCCULT BLOOD-UR Negative Normal Negative [facility] Comment on above: Order Comment: Urine , Random Performed By: #### L 100.0200, L400.0100, L500.2900 ####[facility] [address] [place], [address] pH UR 6.5 Normal 5.0 - 8.0 [facility] Comment on above: Order Comment: Urine , Random Performed By: #### L 100.0200, L400.0100, L500.2900 ####[facility] [address] [place], [address] PROT DIPSTX Negative Normal Negative [facility] Comment on above: Order Comment: Urine , Random Performed By: #### L 100.0200, L400.0100, L500.2900 ####[facility] [address] [place], [address] SP.GR. DIPSTX 1.015 Normal 1.002-1.030 [facility] Comment on above: Order Comment: Urine , Random Performed By: #### L 100.0200, L400.0100, L500.2900 ####[facility] [address] [place], [address] UROBILI Normal Normal Normal [facility] Comment on above: Order Comment: Urine , Random Performed By: #### L 100.0200, L400.0100, L500.2900 ####[facility] [address] [place], [address] Urine clarityOrdered By: A [facility] ASSESSMENT on 01-20-2025 Clarity (U) Clear Clear [facility] Urine color determinationOrd ered By: HEALTH ASSESSMENT on 01-20-2025 Color (U) Yellow Yellow [facility] Urine glucose detectionOrder ed By: HEALTH ASSESSMENT on 01-20-2025 Glucose Ql (U) Normal mg/dl Normal [facility] Urine leukocyte esterase det ection by dipstickOrdered By: HEALTH ASSESSMENT on 01-20-2025 Leukocyte esterase Test strip Ql (U) Negative Negative [facility] Urine pHOrdered By: HEALTH A SSESSMENT on 01-20-2025 pH (U) 6.5 [pH] 5.0 - 8.0 [facility] Urine specific gravity measu rementOrdered By: HEALTH ASSESSMENT on 01-20-2025 Specific gravity (U) [Rel density] 1.015 1.002-1.030 [facility] Urine urobilinogen measureme ntOrdered By: HEALTH ASSESSMENT on 01-20-2025 Urobilinogen Ql (U) Normal mg/dl Normal [facility] White blood cell (WBC) count Ordered By: HEALTH ASSESSMENT on 01-20-2025 WBC (Bld) [#/Vol] 4.1 10*3/uL Low 4.4-11.0 [facility] Thyroid Peroxidase ABon 11-07 THYR PEROX AB 118 IU/mL High 0 [facility] Comment on above: Result Comment: Perf ormed at: [facility] [place] [address] [place], [place] [id number] Commercial Driver: Feliberto Gregory PhD, Phone: [phone] Performed By: #### L 4127.0683 ####[facility] [address] [place], [address] Serum or plasma thyroperoxid ase antibody assay (units/volume)Ordered By: Kyle Bolden on 11-24-2024 TPO Ab Qn 118 [IU]/mL High 0-34 [facility] Comment on above: Performed at: [facility] [address] [place], [place] [id number] Director: Feliberto Gregory PhD, Phone: [phone] T4 Free Directon 11-24-2024 T4 FREE DIRECT 1.50 ng/dL High 0.76-1.46 [facility] Comment on above: Order Comment: Order Date: 09/23/24Order Info: 3016-3 - TSHOrder Info: 3024-7 - T4F Performed By: #### L 506.0400, L501.9520 ####[facility] [address] [place], [address] T4 freeOrdered By: Adrian Bolden on 11-24-2024 Free T4 [Mass/Vol] 1.50 ng/dL High 0.76-1.46 [facility] TSH DL <= 0.005 mIU/L QnOrde red By: Kyle Bolden on 11-24-2024 TSH Qn 0.006 uIU/mL Low 0.300-4.200 [facility] Thyroid Stim Hormone (TSH)on 11-24-2024 TSH 0.006 uIU/mL Low 0.300-4.200 [facility] Comment on above: Order Comment: Order Date: 09/23/24Order Info: 3016-3 - TSHOrder Info: 3024-7 - T4F Performed By: #### L 506.0400, L501.9520 ####[facility] [address] [place], [address] T4 Free Directon 09-22-2024 T4 FREE DIRECT 2.10 ng/dL High 0.76-1.46 [facility] Comment on above: Order Comment: Order Date: 07/22/24 Order Info: 3016-3 - TSH Order Info: 3024-7 - T4F Performed By: #### L 506.0400, L501.9520 #### [facility] [address] [place], [address] T4 freeOrdered By: Adrian Bolden on 09-22-2024 Free T4 [Mass/Vol] 2.10 ng/dL High 0.76-1.46 [facility] TSH DL <= 0.005 mIU/L QnOrde red By: Kyle Bolden on 09-22-2024 Thyroid Stimulating Hormone (TSH) 0.017 uIU/mL Low 0.300-4.200 [facility] Thyroid Stim Hormone (TSH)on 09-22-2024 TSH 0.017 uIU/mL Low 0.300-4.200 [facility] Comment on above: Order Comment: Order Date: 07/22/24 Order Info: 3016-3 - TSH Order Info: 3024-7 - T4F Performed By: #### L 506.0400, L515.9520 #### [facility] [address] [place], [place], [address] Direct serum free thyroxine (FT4) measurementOrdered By: Kyle Bolden on 07-01-2024 Free T4 [Mass/Vol] 1.09 ng/dL 0.76-1.46 [facility] T4 Free Directon 07-01-2024 T4 FREE DIRECT 1.09 ng/dL Normal 0.76-1.46 [facility] Comment on above: Order Comment: Order Date: 07/22/24 Order Info: 3016-3 - TSH Order Info: 302-7 - T4F Performed By: #### L 506.0400, U586.9520 #### [facility] [address] [place], [place], [address] TSH QnOrdered By: Marcus Bolden on 07-01-2024 Thyroid Stimulating Hormone (TSH) 0.449 uIU/mL 0.358-3.740 [facility] Thyroid Stim Hormone (TSH)on 07-01-2024 TSH 0.449 uIU/mL Normal 0.358-3.740 [facility] Comment on above: Order Comment: Order Date: 07/22/24 Order Info: 3016-3 - TSH Order Info: 3024-7 - T4F Performed By: #### L 506.0400, Y800.9520 #### [facility] [address] [place], [place], [address] Free T3on 05-20-2024 Free T3 [Mass/Vol] 3.0 pg/mL Normal 2.18-3.98 [facility] Comment on above: Order Comment: Order Date: 07/22/24 Order Info: 3016-3 - TSH Order Info: 3024-7 - T4F Performed By: #### L 506.0400, L501.9520 #### [facility] [address] [place], [place], [address] T4 Free Directon 05-20-2024 T4 FREE DIRECT 1.48 ng/dL High 0.76-1.46 [facility] Comment on above: Order Comment: Order Date: 07/22/24 Order Info: 3016-3 - TSH Order Info: 3027 - T4F Performed By: #### L 506.0400, L501.9520 #### [facility] [address] [place], [place], [address] Thyroid Stim Hormone (TSH)on 05-20-2024 TSH 0.086 uIU/mL Low 0.358-3.740 [facility] Comment on above: Order Comment: Order Date: 07/22/24 Order Info: 3016-3 - TSH Order Info: 30247 - T4F Performed By: #### L 506.0400, L501.9520 #### [facility] [address] [place], [address] SCRN MAMM (CAD)W/ROCAEL BILATo n 04-29-2024 SCRN MAMM (CAD)W/ROCAEL BILAT [facility] [address] [place] [address] SCRN MAMM (CAD)W/ROCAEL BILAT MR#: [id number] Acct: [id number] Name: JANICE SO Rep #: [id number] : 1970 F 53 From: You silverio MD PCP: Dr. Kyle Bolden MD Status: RAMILA JEFFERS Study: SCRN MAMM (CAD)W/ROCAEL BILAT Date of Exam: 04/09 09/01 Exam# [id number] Ordering Dr: Whit Lindo NP BULB GROWER -C -[id number] MAMMOGRAPHY - BILATERAL SCREENING REASON FOR [...] delay biopsy of a clinically suspicious abnormality. [id number] Electronically Signed: You Adkins MD at 10:09 EDT , CC: RAY Lindo; Dr. 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 [place], [place], [address] T4 Free Directon 04-01-2024 T4 FREE DIRECT 0.72 ng/dL Low 0.76-1.46 [facility] Comment on above: Performed By: #### L 506.0400, L501.9520 #### [facility] [address] [place], [address] Thyroid Stim Hormone (TSH)on 04-01-2024 TSH 9.540 uIU/mL High 0.358-3.740 [facility] Comment on above: Performed By: #### L 506.0400, L501.9520 #### [facility] [address] [place], [place], [address] Vitamin D,25 Hydroxyon 04-01 Vitamin D 25-OH 23.8 ng/mL Normal [facility] Comment on above: Result Comment: Nani min D 25(OH) Status Range Deficiency <20 ng/mL (50nmol/L) Insufficiency 20 - 30 ng/mL (50 - 75 nmol/L) Sufficiency 30 - 100 ng/mL (75 - 250 nmol/L) Toxicity >100 ng/mL (>250 nmol/L) Performed By: #### L 506.0400, L501.9520 #### [facility] [address] 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 Normal [facility] Whole blood hemoglobin A1c/t otal hemoglobin ratio (mass fraction)Ordered By: Dr. Bolden on 12-19-2022 HbA1c (Bld) [Mass fraction] 5.6 % 3.8-5.6 [facility] Comment on above: Normal < 5.7 % Predi abetic 5.7 - 6.4 % Diabetic >or= 6.5 % Please note range changes. Absolute lymphocyte countOrd ered By: HEALTH ASSESSMENT on 12-14-2022 Lymphocytes Auto (Unsp spec) [#/Vol] 1.40 10*3/uL 0.83-4.51 [facility] Absolute reticulocyte countO rdered By: HEALTH ASSESSMENT on 12-14-2022 Reticulocytes (Bld) [#/Vol] 0.00 10*3/uL 0-5 [facility] Basophil percentageOrdered B y: HEALTH ASSESSMENT on 12-14-2022 Basophil percentage 2.9 mg/dL 2.5-4.9 [facility] Bilirubin [Mass/Vol] 0.60 mg/dL 0.20-1.00 [facility] Comment on above: For patients on eltr ombopag therapy, use of Dimension [place] TBIL is not recommended. Chloride [Moles/Vol] 107 mmol/L 98-107 [facility] Cholesterol [Mass/Vol] 178 mg/dL <200 [facility] Comment on above: <200 mg/dL Desirable 200-240 mg/dL Borderline >240 mg/dL High Risk Glucose [Mass/Vol] 110 mg/dL 74-106 [facility] Comment on above: Fasting Glucose resu lt from 100 to 125 mg/dL suggests IMPAIRED HOMEOSTASIS per A.D.A. criteria. LDH [Catalytic activity/Vol] 171 U/L 84-246 [facility] Neutrophils (Bld) [#/Vol] 2.1 10*3/uL 2.0-7.7 [facility] Potassium [Moles/Vol] 3.7 mmol/L 3.5-5.1 [facility] Protein [Mass/Vol] 7.1 g/dL 6.4-8.2 [facility] Sodium [Moles/Vol] 140 mmol/L 136-145 [facility] Triglyceride [Mass/Vol] 84 mg/dL <199 [facility] Comment on above: The drugs N-Acetylcy steine and Metamizole may falsely depress this assay.Serum Triglycerides Reference Interval Normal <150 mg/dL Borderline high 150 - 199 mg/dL High 200 - 499 mg/dL Very High > or = 500 mg/dL WBC (Bld) [#/Vol] 4.1 10*3/uL 4.4-11.0 [facility] Bilirubin Test strip Ql (U)O rdered By: HEALTH ASSESSMENT on 12-14-2022 Bilirubin Ql (U) Negative Negative [facility] Blood erythrocytes count (nu mber/volume)Ordered By: HEALTH ASSESSMENT on 12-14-2022 RBC (Bld) [#/Vol] 5.55 10*6/uL 4.2-5.4 [facility] Blood hemoglobin measurement (mass/volume)Ordered By: HEALTH ASSESSMENT on 12-14-2022 Hemoglobin (Bld) [Mass/Vol] 15.8 g/dL 12.0-15.0 [facility] Blood platelet mean volumeOr dered By: HEALTH ASSESSMENT on 12-14-2022 Platelet mean volume (Bld) [Entitic vol] 9.9 fL 6.2-12.0 [facility] Determination of erythrocyte mean corpuscular volume (MCV)Ordered By: HEALTH ASSESSMENT on 12-14-2022 MCV (RBC) [Entitic vol] 85.4 fL 81-99 [facility] Direct bilirubinOrdered By: HEALTH ASSESSMENT on 12-14-2022 Bilirubin.direct [Mass/Vol] 0.17 mg/dL 0.00-0.30 [facility] Hematocrit Auto (Bld) [Volum e fraction]Ordered By: HEALTH ASSESSMENT on 12-14-2022 Hematocrit (Bld) [Volume fraction] 47.4 % 37-47 [facility] Ketones Test strip Ql (U)Ord ered By: HEALTH ASSESSMENT on 12-14-2022 Ketones Ql (U) Negative Negative [facility] Laboratory - Chemistry and C hemistry - challengeOrdered By: HEALTH ASSESSMENT on 12-14-2022 ALP [Catalytic activity/Vol] 49 U/L 45-117 [facility] ALT [Catalytic activity/Vol] 17 U/L 13-56 [facility] Cholesterol.total/Choles terol in HDL [Mass ratio] 3.50 {ratio} [facility] CO2 [Moles/Vol] 29.0 mmol/L 21.0-32.0 [facility] Globulin (S) [Mass/Vol] 3.3 g/dL 2.2-4.2 [facility] Urea nitrogen/Creatinine [Mass ratio] 20.2 mg/mg 10-20 [facility] - Hematology and Cell countsOrdered By: HEALTH ASSESSMENT on 12-14-2022 Erythrocyte distribution width (RBC) [Entitic vol] 38.5 fL 35.1-43.9 [facility] Erythrocyte distribution width (RBC) [Ratio] 12.3 % 11.6-14.6 [facility] MCH (RBC) [Entitic mass] 28.5 pg 27.0-32.0 [facility] Nucleated RBC/100 WBC (Bld) [Ratio] 0 % 0-5 [facility] MCHC Auto (RBC) [Mass/Vol]Or dered By: HEALTH ASSESSMENT on 12-14-2022 MCHC (RBC) [Mass/Vol] 33.3 g/dL 32-36 [facility] Nitrite Test strip Ql (U)Ord ered By: HEALTH ASSESSMENT on 12-14-2022 Nitrite Ql (U) Negative Negative [facility] No Panel InformationOrdered By: HEALTH ASSESSMENT on 12-14-2022 Estimated GFR (MDRD) Amer 105 mL/min >60 [facility] Comment on above: GFR Calc Estimated GFR (MDRD) Non-Af Amer 87 mL/min >60 [facility] Comment on above: Non- GFR Calc Platelets bldOrdered By: HEA LT ASSESSMENT on 12-14-2022 Platelets (Bld) [#/Vol] 267 10*3/uL 150-450 [facility] Protein Test strip Ql (U)Ord ered By: HEALTH ASSESSMENT on 12-14-2022 Protein Ql (U) Negative Negative [facility] Segmented neutrophils/100 WB C Auto (Bld)Ordered By: HEALTH ASSESSMENT on 12-14-2022 Segmented neutrophils/100 WBC (Bld) 50.5 % 47-70 [facility] Serum or plasma albumin shasta urement (mass/volume)Ordered By: HEALTH ASSESSMENT on 12-14-2022 Albumin [Mass/Vol] 3.8 g/dL 3.2-5.0 [facility] Serum or plasma albumin/glob ulin mass ratioOrdered By: HEALTH ASSESSMENT on 12-14-2022 Albumin/Globulin [Mass ratio] 1.2 {ratio} 0.9-2.4 [facility] Serum or plasma calcium shasta urement (mass/volume)Ordered By: HEALTH ASSESSMENT on 12-14-2022 Calcium [Mass/Vol] 9.1 mg/dL 8.5-10.1 [facility] Serum or plasma cholesterol in HDL measurement (mass/volume)Ordered By: HEALTH ASSESSMENT on 12-14-2022 Cholesterol in HDL [Mass/Vol] 51 mg/dL >40 [facility] Comment on above: The drugs N-Acetylcy steine and Metamizole may falsely depress this assay. Reference Range HDL <40 mg/dL Low HDL Cholesterol HDL >or= 60 mg/dL High HDL Cholesterol Serum or plasma cholesterol in VLDL measurement (mass/volume)Ordered By: HEALTH ASSESSMENT on 12-14-2022 Cholesterol in VLDL [Mass/Vol] 17 mg/dL 5-40 [facility] Serum or plasma creatinine m easurement (mass/volume)Ordered By: HEALTH ASSESSMENT on 12-14-2022 Creatinine [Mass/Vol] 0.74 mg/dL 0.55-1.02 [facility] Comment on above: The validity of the calculated GFR & GFRAA in patients over 70 years has not been determined. Clinical correlation is essential. Serum or plasma low density lipoprotein (LDL) cholesterol measurement (mass/volume)Ordered By: HEALTH ASSESSMENT on 12-14-2022 Cholesterol in LDL [Mass/Vol] 110 mg/dL 0-130 [facility] Serum or plasma urea nitroge n measurement (mass/volume)Ordered By: HEALTH ASSESSMENT on 12-14-2022 Urea nitrogen [Mass/Vol] 15 mg/dL 7-18 [facility] Serum or plasma uric acid me asurement (mass/volume)Ordered By: HEALTH ASSESSMENT on 12-14-2022 Urate [Mass/Vol] 3.4 mg/dL 2.6-6.0 [facility] Comment on above: The drugs N-Acetylcy steine and Metamizole may falsely depress this assay. Thin prep Papanicolaou smear with manual screeningOrdered By: HEALTH ASSESSMENT on 12-14-2022 Thin prep Papanicolaou smear with manual screening 12 U/L 15-37 [facility] Thin prep Papanicolaou smear with manual screening 4 5-15 [facility] Urine blood detectionOrdered By: HEALTH ASSESSMENT on 12-14-2022 RBC Ql (U) Negative Negative [facility] Urine clarityOrdered By: HEA LTH ASSESSMENT on 12-14-2022 Clarity (U) Sl. Cloudy Clear [facility] Urine color determinationOrd ered By: HEALTH ASSESSMENT on 12-14-2022 Color (U) Yellow Yellow [facility] Urine glucose detectionOrder ed By: HEALTH ASSESSMENT on 12-14-2022 Glucose Ql (U) Normal mg/dl Normal [facility] Urine leukocyte esterase det ection by dipstickOrdered By: HEALTH ASSESSMENT on 12-14-2022 Leukocyte esterase Test strip Ql (U) 25 /ul Negative [facility] Urine pHOrdered By: HEALTH A SSESSMENT on 12-14-2022 pH (U) 8.0 [pH] 5.0 - 8.0 [facility] Urine specific gravity measu rementOrdered By: HEALTH ASSESSMENT on 12-14-2022 Specific gravity (U) [Rel density] 1.015 1.002-1.030 [facility] Urobilinogen Auto test strip Ql (U)Ordered By: HEALTH ASSESSMENT on 12-14-2022 Urobilinogen Ql (U) Normal mg/dl Normal [facility] Laboratory - Microbiology an d Antimicrobial susceptibilityon 01-30-2022 SARS-CoV-2 (COVID-19) RNA KASSIDY+probe Ql (Unsp spec) Detected [facility] Work Phone: No Panel Informationon 01-30 POC Nasal Swab Influenza A,B Not detected [facility] Work Phone: POC Nasal Swab RSV Not detected [facility] Work Phone: Office Visiton 02-19-2017 Dietary management education, guidance, and counseling (procedure) yes Invalid Interpretation Code [facility] Work Phone: Documentation of current medications (procedure) Done Invalid Interpretation Code [facility] Phone: [phone] Fall risk assessment No Invalid Interpretation Code [facility] Phone: [phone] Tobacco use CPHS Never smoker Invalid Interpretation Code [facility] Work Phone: [phone] Replaced Document: Norma RODRIGUEZ Observationson 02-21-2016 electrocardiogram interpretation Sinus Rhythm WITHIN NORMAL LIMITS Invalid Interpretation Code [facility] Work Phone: [phone] GE use only - for [employer] import when terms are not otherwise specified 424 ms Invalid Interpretation Code [facility] Phone: [phone] P wave axis, electrocardiogram 33 deg Invalid Interpretation Code [facility] Phone: [phone] IL interval, electrocardiogram 158 ms Invalid Interpretation Code [facility] Phone: [phone] Pulse (Heart Rate) 66 /min Invalid Interpretation Code [facility] Work Phone: [phone] QRS axis, electrocardiogram 52 deg Invalid Interpretation Code [facility] Work Phone: [phone] QRS duration, electrocardiogram 92 ms Invalid Interpretation Code [facility] Phone: [phone] QT interval, electrocardiogram new path ms Invalid Interpretation Code [facility] Phone: [phone] T wave axis, electrocardiogram 31 deg Invalid Interpretation Code [facility] Phone: [phone] Clinical Lists Updateon 02-06 Left ventricular Ejection fraction 60 % Invalid Interpretation Code [facility] Phone: [phone] Clinical Lists Updateon 07-10 Alanine aminotransferase (ALT) 16 U/L Invalid Interpretation Code [facility] Phone: [phone] Alkaline phosphatase (ALP) 32 U/L Invalid Interpretation Code [facility] Work Phone: [phone] Aspartate aminotransferase (AST) 14 U/L Invalid Interpretation Code [facility] Work Phone: [phone] Chloride 110 mmol/L Invalid Interpretation Code [facility] Work Phone: [phone] Cholesterol 148 mg/dL Invalid Interpretation Code [facility] Work Phone: [phone] CO2 26.0 mmol/L Invalid Interpretation Code [facility] Work Phone: [phone] Creatinine 0.79 mg/dL Invalid Interpretation Code [facility] Work Phone: [phone] HDL Cholesterol 55 mg/dL Invalid Interpretation Code [facility] Work Phone: [phone] Hematocrit (HCT) 45.0 % Invalid Interpretation Code [facility] Work Phone: [phone] Hemoglobin (HGB) 15.0 g/dL Invalid Interpretation Code [facility] Work Phone: [phone] LDL Cholesterol 84 mg/dL Invalid Interpretation Code [facility] Work Phone: [phone] Platelets 190 10*3/mm3 Invalid Interpretation Code [facility] Work Phone: [phone] Potassium 4.3 mmol/L Invalid Interpretation Code [facility] Work Phone: [phone] Sodium 143 mmol/L Invalid Interpretation Code [facility] Work Phone: [phone] Triglyceride 47 mg/dL Invalid Interpretation Code [facility] Work Phone: [phone] Urea nitrogen 18 mg/dL Invalid Interpretation Code [facility] Work Phone: [phone] very low density lipoproteins 9 mg/dL Invalid Interpretation Code [facility] Work Phone: [phone] WBC (Leukocytes) 3.6 10*3/uL Invalid Interpretation Code [facility] Work Phone: [phone] Office Visiton 07-30-2014 cardiac risk group A Invalid Interpretation Code [facility] Work Phone: [phone] General cardiovascular disease 10Y risk [#] [place] Not enough information Invalid Interpretation Code [facility] Work Phone: [phone] Lab Report: BMPon 05-13-2014 Anion gap 6 mmol/L Normal 5-15 [facility] Work Phone: [phone] BUN/Creatinine Ratio 24.3 RATIO High 10-20 [facility] Work Phone: [phone] Calcium 8.7 mg/dL Normal 8.5-10.1 [facility] Work Phone: [phone] eGFR (non-black) 118 mL/min/{1.73_m2} Normal >60 [facility] Work Phone: [phone] eGFR (non-black) 97 mL/min/{1.73_m2} Normal >60 [facility] Work Phone: [phone] Glucose 87 mg/dL Normal 70-110 [facility] Work Phone: [phone] Lab Report: CBCon 01-14-2014 Erythrocytes (RBC) 5.03 10*6/uL Normal 4.2-5.4 [facility] Work Phone: [phone] MCH 29.2 pg Normal 27.0-32.0 [facility] Work Phone: [phone] MCHC 34.7 G/GL Normal 32-36 [facility] Work Phone: [phone] MCV 84.3 fL Normal 81-99 [facility] Work Phone: [phone] PMV by Ayanna 9.3 fL Normal 6.2-12.0 [facility] Work Phone: [phone] External Other: Preferred Me thod of Contacton 01-08-2014 Patient's prefered method of contact secmsg Invalid Interpretation Code [facility] Work Phone: [phone] Vital Signs Date Time Vital Sign Value Performing Clinician Joi sabillon 03-20-2022 15:51-0400 Body height 162.[address] Marcus Bolden Work Phone: [facility] Work Phone: 03-20-2022 15:51-0400 Body mass index (BMI) [Ratio] 35.3 kg/m2 Dr. Marcus Bolden Work Phone: [facility] Work Phone: 03-20-2022 15:51-0400 Body weight 93.[address] Marcus Bolden Work Phone: [facility] Work Phone: 03-20-2022 15:51-0400 Diastolic blood pressure 60 mm[Hg] Dr. Marcus Bolden Work Phone: [facility] Work Phone: 03-20-2022 15:51-0400 Heart rate 60 /min Dr. Marcus Bolden Work Phone: [facility] Work Phone: 03-20-2022 15:51-0400 Respiratory rate 16 /min Dr. Marcus Bolden Work Phone: [facility] Work Phone: 03-20-2022 15:51-0400 Systolic blood pressure 120 mm[Hg] Dr. Marcus Bolden Work Phone: [facility] Work Phone: 02-19-2017 13:13-0400 BMI (Body [...] Date Encounter Type Care Provider Facility Start: 03-28-2025 End: 03-28-2025 ambulatory Joe Berman Facility:[facility] Start: 03-04-2025 End: 03-04-[address] Kyle Bolden MD Work Phone: -Laboratory Start: 03-04-2025 End: 03-04-[address] Kyle Bolden MD -Laboratory Work Phone: Start: 03-04-2025 End: 03-04-[facility] Start: 01-20-2025 End: 01-20-[address] Kyle Bolden MD -Laboratory Work Phone: Start: 01-20-2025 Registered [facility] -Laboratory Work Phone: Start: 01-20-2025 End: 01-20-[address] Kyle Bolden MD Work Phone: -Laboratory Start: 01-20-2025 End: 01-20-2025 ambulatory Kyle Bolden Facility:[facility] Start: 11-24-2024 End: 11-24-[address] Kyle Bolden MD -Laboratory Work Phone: Start: 11-24-2024 End: 11-24-2024 ambulatory Kyle Bolden Facility:[facility] Start: 09-22-2024 End: 09-22-[address] Kyle Bolden MD Work Phone: [facility] Work Phone: Start: 09-22-2024 End: 09-22-[address] Kyle Bolden MD -Laboratory Work Phone: Start: 09-22-2024 End: 09-22-2024 [facility] Start: 07-01-2024 End: 07-01-[address] Kyle Bolden MD -Laboratory Work Phone: Start: 07-01-2024 End: 07-01-2024 ambulatory Kyle Bolden Facility:[facility] Start: 05-20-2024 End: 05-20-2024 ambulatory Kyle Bolden Facility:[facility] Start: 04-29-2024 End: 04-29-2024 ambulatory Whit Lindo [employer] [employer] Facility:[facility] Start: 03-31-2024 End: 04-01-2024 ambulatory Whit Lindo [employer] Facility:[facility] Start: 04-27-2023 End: 04-27-2023 ambulatory [facility] Work Phone: Start: 04-27-2023 End: 04-27-2023 Patient encounter procedure [facility] Work Phone: Start: 12-19-2022 End: 12-19-2022 ambulatory [facility] Work Phone: Start: 12-19-2022 End: 12-19-2022 Patient encounter procedure [facility] Start: 12-14-2022 Registered [facility] Start: 04-24-2022 End: 04-24-[address] Marcus Bolden Work Phone: [facility] Work Phone: Start: 04-24-2022 End: 04-24-[address] Marcus Bolden Work Phone: [facility] Start: 04-17-2022 End: 04-17-[address] Marcus Bolden Work Phone: [facility] Work Phone: Start: 04-17-2022 End: 04-17-[address] Marcus Bolden Work Phone: [facility] Start: 03-20-2022 End: 03-20-[address] Marcus Bolden Work Phone: [facility] Start: 01-30-2022 End: 01-30-[address] Marcus Bolden Work Phone: [facility] Procedures Date Procedure Procedure Detail [...] Date Care Activity Detail Author Start: 12-19-2022 [facility] Start: 02-20-2018 End: 02-20-2018 Appointment Appointment [facility] Work Phone: Start: 02-19-2017 End: 02-19-2017 Appointment Appointment [facility] Work Phone: Start: 02-19-2017 End: 02-19-2017 Follow Up Appt 1 year Follow Up Appt 1 year [facility] Work Phone: Start: 02-19-2017 End: 02-19-2017 PFM PFM [facility] Work Phone: Start: 02-21-2016 End: 02-21-2016 Follow Up Appt 1 year Follow Up Appt 1 year [facility] Work Phone: Start: 02-21-2016 End: 02-21-2016 PFM PFM [facility] Work Phone: Start: 02-22-2015 End: 02-22-2015 Follow Up Appt 1 year Follow Up Appt 1 year [facility] Work Phone: Start: 02-22-2015 End: 02-22-2015 PFM PFM [facility] Work Phone: Start: 07-30-2014 End: 02-01-2017 Follow Up Appt 6 months Follow Up Appt 6 months [facility] Work Phone: Start: 07-30-2014 End: 02-01-2017 PFM PFM [facility] Work Phone: Start: 04-29-2014 End: 05-13-2014 *BMP *BMP [facility] Work Phone: Start: 04-29-2014 [...] Start: 01-08-2014 End: 01-08-2014 Echocardiography Echocardiogram (complete) [facility] Work Phone: Start: 01-08-2014 End: 02-01-2017 Electrocardiogram, complete EKG (In office) [facility] Work Phone: Start: 01-08-2014 End: 02-01-2017 Follow Up Appt 3 months Follow Up Appt 3 months [facility] Work Phone: Start: 01-08-2014 End: 02-01-2017 Follow Up Appt Other Follow Up Appt Other [facility] Work Phone: Start: 01-08-2014 End: 02-01-2017 PFM PFM [facility] [employer] Work Phone: Start: 01-08-2014 End: 01-08-2014 Remote 30 day ecg rev/report 30 Day Holter Monitor [facility] Work Phone: Start: 01-08-2014 End: 01-08-2014 Tilt table evaluation [employer] [id number] Work Phone: Erythropoietin (EPO) [Units/volume] in Serum or Plasma [facility] JAK2 gene p.[id number] [Presence] in Blood or Tissue by Molecular genetics method [facility] Immunizations Immunization Date Immunization Notes Care Provider Fa [facility] 05-07-2024 influenza, seasonal, injectable, preservative free Dr. Kyle Bolden MD Work Phone: [facility] 05-03-2023 influenza, injectabl e, quadrivalent, preservative free Dr. Kyle Bolden MD Work Phone: [facility] 04-26-2022 influenza, injectabl e, quadrivalent, preservative free [facility] 04-26-2022 influenza, seasonal, injectable Dr. Marcus Bolden Work Phone: [facility] 05-03-2021 influenza, injectabl e, quadrivalent, preservative free [facility] 05-03-2021 influenza, seasonal, injectable Dr. Marcus Bolden Work Phone: [facility] 08-17-2020 Covid (Moderna) Dr. Noelle Bolden Work Phone: [facility] 07-20-2020 Covid (Moderna) Dr. Noelle Bolden Work Phone: [facility] 04-14-2020 influenza, injectabl e, quadrivalent, preservative free [facility] 04-14-2020 influenza, seasonal, injectable Dr. Marcus Bolden Work Phone: [facility] 04-29-2019 influenza, injectabl e, quadrivalent, preservative free [facility] 04-29-2019 influenza, seasonal, injectable Dr. Marcus Bolden Work Phone: [facility] 04-22-2018 influenza, injectabl e, quadrivalent, preservative free [facility] 04-22-2018 influenza, seasonal, injectable Dr. Marcus Bolden Work Phone: [facility] 04-04-2017 influenza, injectabl e, quadrivalent, preservative free [facility] 04-04-2017 influenza, seasonal, injectable Dr. Marcus Bolden Work Phone: [facility] 04-24-2016 influenza, injectabl e, quadrivalent, preservative free [facility] 04-24-2016 influenza, seasonal, injectable Dr. Marcus Bolden Work Phone: [facility] 05-24-2015 influenza, injectabl e, quadrivalent, preservative free [facility] 05-24-2015 influenza, seasonal, injectable Dr. Marcus Bolden Work Phone: [facility] 04-08-2014 influenza, injectabl e, quadrivalent, preservative free [facility] 04-08-2014 influenza, seasonal, injectable Dr. Marcus Bolden Work Phone: [facility] 07-17-[address] Marcus Bolden Work Phone: [facility] Payers Date Payer Category Payer Self-pay [id number] 2023 Unknown [id number] 2013 Unknown [id number] Unknown [id number] 2.16.8 [id number] Unknown [id number] 2.16.8 [id number] Unknown [id number] 2.16.8 [id number] Unknown [id number] 2.16.8 [id number] Unknown [id number] 2.16.8 [id number] Unknown [id number] 2.16.8 [id number] Unknown [id number] 2.16.8 [id number] Unknown [id number] 2.16.8 [id number] Unknown [id number] 2.16.8 [id number] Unknown [id number] 2.16.8 [id number] Unknown [id number] 2.16.8 [id number] Social History Date Type Detail Facility Start: [facility] Start: 1970 Sex Assigned At Female [facility] Start: 03-31-2024 Tobacco smoking stat us [facility] Never smoked tobacco (finding) [facility] Start: 09-27-2024 Sex Female (finding) [facility] Chief complaint+Reason for visit Narrative Note Date & Type Note Facility Chief complaint+Reason for visit Narrative Reason for Visit Nonrheumatic mitral (valve) prolapse Premature atrial contractions Premature ventricular contraction Syncope, vasovagal [facility] Work Phone: Chief complaint+Reason for visit Narrative Note Date & Type Note Facility Chief complaint+Reason for visit Narrative Reason for Visit Nonrheumatic mitral (valve) prolapse Premature atrial contractions Premature ventricular contraction Syncope, vasovagal [facility] Work Phone: Evaluation note Note Date & Type Note Facility Evaluation note Diagnosis Onset Date Nonrheumatic mitral (valve) prolapse acute Premature atrial contractions acute Premature ventricular contraction acute Syncope, vasovagal acute [facility] Work Phone: Evaluation note Note Date & Type Note Facility Evaluation note No assessment information availa ble [facility] Work Phone: Reason for referral (narrative) Note Date & Type Note Facility Reason for referral (narrative) No reason for referral information available [facility] Work Phone: Family History No Family [...] No January 05, 2021 2:00pm Power of Inspector Multifocal Lens No January 05 2:00pm Chief Complaint and Reason for Visit Chief Complaint [employer] [facility] [facility] Chief Complaint SCREENING Chief Complaint Admit Date E ORDERS July 01, 2024 5:58am INT LABS September 22, 2024 6:0 1am Chief Complaint Admit Date INT LABS November 24, 2024 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 Kyle Bolden MD Primary Care Provider Acti ve Start: March 04, 2025 End: March 04, 2025 Dr. Kyle Bolden MD Attending Provider Active Start: March 04, 2025 End: March 04, 2025 Dr. Kyle Bolden MD Referring Provider Active Start: March 04, 2025 End: March 04, 2025 INFORMATION SOURCE (unrecogn ized section and content) DATE CREATED AUTHOR 03/29/2025 [facility] FOR RECORDS PERTAINING TO PATIENTS WHO ARE [...] BE BASED ON THE PRIMARY CLINICAL RECORDS. [employer] provides no warranty or guarantee of the accuracy or completeness of information in this document.
== END | disposition home or self-care (01) ==
PROVIDERS: PCP Family Medicine; Referring Provider Physician Assistant; Visit Provider Physician Assistant
DX: R82.90 Unspecified abnormal findings in urine (principal)
CPT/HCPCS: 87077; 87086; 87088; 87186

== ENCOUNTER → 2025-04-09 | Outpatient (CLI) | payer OTHER, SELFPAY ==
[2025-04-14 17:08] LABS: HPV APTIMA, High Risk Negative (Negative)
== END | disposition home or self-care (01) ==
LOC: LABSPEC 11:54
PROVIDERS: PCP Family Medicine; Visit Provider Advanced Practice Midwife
DX: Z12.4 Encounter for screening for malignant neoplasm of cervix (principal)
CPT/HCPCS: 87624; 88175; G0145

== ENCOUNTER → 2025-05-04 | Outpatient (CLI) | payer OTHER, SELFPAY ==
--- NOTE | 2025-05-04 15:45 | BI_ITS ---
EXAM: SCRN MAMM (CAD)W/ROCAEL BILAT DATE: 05/04/2025 CLINICAL HISTORY: F, Age 54 y/o , SCREEN FOR BREAST CANCER TECHNIQUE: Procedure Code: [id number] Modality: MG Procedure: SCRN MAMM (CAD)W/ROCAEL BILAT COMPARISON: Prior exam(s) dated 04/29/2024 and 04/27/2023. FINDINGS: TISSUE DENSITY: There are scattered areas of fibroglandular density. Bilateral Breast Mammographic Findings: No significant masses, calcifications or other abnormalities are identified. Partially obscured stable isodense masses are seen in both breasts. These are best appreciated on the rocael images. Benign round microcalcifications are seen in both breasts. Stable nodular masslike densities are seen in both breast. BI/SCRN MAMM (CAD)W/ROCAEL BILAT IMPRESSION: Benign screening mammogram. OVERALL FINAL ASSESSMENT BI-RADS 2: BENIGN RECOMMENDATION: Routine annual follow-up in 1 Year Additional Recommendation none A letter with findings and recommendations will be mailed to the patient. Reading Location: [id number]
== END | disposition home or self-care (01) ==
LOC: OPBI 14:03
PROVIDERS: PCP Family Medicine; Referring Provider Advanced Practice Midwife; Visit Provider Advanced Practice Midwife
DX: Z12.31 Encounter for screening mammogram for malignant neoplasm of breast (principal)
CPT/HCPCS: 77063; 77067